=== PATIENT | female | born 1975 | race Caucasian/White ===

== ENCOUNTER 2017-09-04 10:26 | Emergency (ER) | payer OTHER ==
[~2017-09-04] VITALS: Ht 170.2 cm; Wt 104.3 kg
[~2017-09-04 10:26] MED LIST: BUSP10TA PO; FLUO10CA13 PO; FLUO40CA9 PO; GABA600T2 PO; MORP15TA80 PO; MORP30TA83 PO; NITR100C62 PO; ONDA8TAB12 PO; OXYC-328 PO; TRAZ150T49 PO
[2017-09-04] MEDS ORDERED: ASPIRIN ENTERIC COATED 325 MG TABLET.DR. PO ONE (11:00)
[2017-09-04] MEDS: NITROGLYCERIN SUBLINGUAL 0.4 MG BOTTLE OF 25. SL PRN ×2 (11:16→12:02)
[2017-09-04 11:17] LABS: BASO # 0.1 x10^3/uL (0.0-0.2); BASO % 1 % (0-3); EOS % 4 % (0-3); HEMATOCRIT 42.5 % (36.0-47.0); HEMOGLOBIN 14.2 g/dL (12.0-15.5); LYMPH # 2.9 x10^3/uL (1.0-4.8); LYMPH % 32 % (24-48); MEAN CORPUSCULAR HEMOGLOBIN 28 pg (25-35); MEAN CORPUSCULAR HGB CONC 34 g/dL (31-37); MEAN CORPUSCULAR VOLUME 84 fL (79-100); MONO % 7 % (0-9); NEUT % 56 % (31-73); PLATELET COUNT 346 x10^3/uL (140-400); RED BLOOD COUNT 5.05 x10^6/uL (3.50-5.40); RED CELL DISTRIBUTION WIDTH 13.2 % (11.5-14.5); WHITE BLOOD COUNT 9.1 x10^3/uL (4.0-11.0)
--- NOTE | 2017-09-04 11:25 | EKG ---
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
--- NOTE | 2017-09-04 11:27 | PHYS DOC ---
Past Medical History Past Medical History: Anxiety, Depression, Hypothyroid, Other Additional Past Medical Histor: back pain, DDD Past Surgical History: Cholecystectomy Additional Past Surgical Histo: LEEP procedure for HPV Alcohol Use: None Drug Use: None Adult General Chief Complaint Chief Complaint: CHEST PAIN HPI HPI Patient is a 41 year old female who presents with sharp left side Chest pain with radiation down her left arm, pain in the left arm as well as numbness. She states the symptoms were present when she woke this morning. The pain is radiating into her left neck as well as into her head. No nausea or vomiting, she did not take anything for these symptoms, they continue to persist. Patient states she had similar symptoms in the past when she "had fluid on the brain". She denies any known cardiac history, no history of PE or DVT, no risk factors for either. Patient reports she is taking her medications as prescribed. Her primary care physician is Dr. Greene, she has seen Dr. De Los Santos in the past for hydrocephalus. Review of Systems Review of Systems Constitutional: Denies fever or chills [] Eyes: Denies change in visual acuity, redness, or eye pain [] HENT: Denies nasal congestion or sore throat [] Respiratory: Denies cough or shortness of breath [] Cardiovascular: No additional information not addressed in HPI [] GI: Denies abdominal pain, nausea, vomiting, bloody stools or diarrhea [] : Denies dysuria or hematuria [] Musculoskeletal: Denies back pain or joint pain [] Integument: Denies rash or skin lesions [] Neurologic: per hpi Current Medications Current Medications Current Medications Medications (Trade) Dose Ordered Sig/[facility] Start Time Stop Time Status Last Admin Dose Admin Acetaminophen (Tylenol) 1,000 mg 1X ONCE 09/04/17 12:00 09/04/17 12:01 DC 09/04/17 12:02 1,000 MG Aspirin (Ecotrin) 325 mg 1X ONCE 09/04/17 11:00 09/04/17 11:04 DC 09/04/17 11:15 325 MG Nitroglycerin (Nitrostat) 0.4 mg PRN Q5MIN PRN 09/04/17 11:00 09/04/17 12:02 0.4 MG Oxycodone/ Acetaminophen (Percocet 5/325) 1 tab 1X ONCE 09/04/17 13:30 09/04/17 13:31 DC 09/04/17 13:22 1 TAB Allergies Allergies Allergies Coded Allergies Type Severity Reaction Last Updated Verified No Known Drug Allergies 01/24/14 No Physical Exam Physical Exam Constitutional: Well developed, well nourished, no acute distress, non-toxic appearance. obese HENT: Normocephalic, atraumatic, bilateral external ears normal, oropharynx moist, no oral exudates, nose normal. [] Eyes: PERRLA, EOMI, conjunctiva normal, no discharge. [] Neck: Normal range of motion, no tenderness, supple, no stridor. [] Cardiovascular:Heart rate regular with regular rhythm, no murmur [] Lungs & Thorax: Bilateral breath sounds clear to auscultation , no wheeze or crackles, ttp in anterior chest, reportedly reproduces pt's pain. Abdomen: Bowel sounds normal, soft, no tenderness, no masses, no pulsatile masses. [] Skin: Warm, dry, no erythema, no rash. [] Back: No tenderness, no CVA tenderness. [] Extremities: No tenderness, no cyanosis, no clubbing, ROM intact, no edema.negative homen's bilaterally Neurologic: Alert and oriented X 3, normal motor function, no focal deficits noted. 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 [] Current Patient Data Vital Signs Vital Signs Date Time Temp Pulse Resp B/P (MAP) Pulse Ox O2 Delivery O2 Flow Rate FiO2 09/04/17 13:45 80 17 123/78 (93) 98 Room Air 09/04/17 10:30 98.5 98.5 Lab Values Laboratory Tests Test 09/04/17 11:07 09/04/17 11:55 White Blood Count 9.1 x10^3/uL (4.0-11.0) Red Blood Count 5.05 x10^6/uL (3.50-5.40) Hemoglobin 14.2 g/dL (12.0-15.5) Hematocrit 42.5 % (36.0-47.0) Mean Corpuscular Volume 84 fL (79-100) Mean Corpuscular Hemoglobin 28 pg (25-35) Mean Corpuscular Hemoglobin Concent 34 g/dL (31-37) Red Cell Distribution Width 13.2 % (11.5-14.5) Platelet Count 346 x10^3/uL (140-400) Neutrophils (%) (Auto) 56 % (31-73) Lymphocytes (%) (Auto) 32 % (24-48) Monocytes (%) (Auto) 7 % (0-9) Eosinophils (%) (Auto) 4 % (0-3) H Basophils (%) (Auto) 1 % (0-3) Neutrophils # (Auto) 5.1 x10^3uL (1.8-7.7) Lymphocytes # (Auto) 2.9 x10^3/uL (1.0-4.8) Monocytes # (Auto) 0.6 x10^3/uL (0.0-1.1) Eosinophils # (Auto) 0.4 x10^3/uL (0.0-0.7) Basophils # (Auto) 0.1 x10^3/uL (0.0-0.2) Prothrombin Time 12.8 SEC (11.7-14.0) Prothrombin Time INR 1.0 (0.8-1.1) Sodium Level 139 mmol/L (136-145) Potassium Level 4.1 mmol/L (3.5-5.1) Chloride Level 101 mmol/L (98-107) Carbon Dioxide Level 27 mmol/L (21-32) Anion Gap 11 (6-14) Blood Urea Nitrogen 16 mg/dL (7-20) Creatinine 1.0 mg/dL (0.6-1.0) Estimated GFR (Cockcroft-Gault) 61.1 BUN/Creatinine Ratio 16 (6-20) Glucose Level 100 mg/dL (70-99) H Calcium Level 9.5 mg/dL (8.5-10.1) Magnesium Level 2.1 mg/dL (1.8-2.4) Total Bilirubin 0.2 mg/dL (0.2-1.0) Aspartate Amino Transferase (AST) 19 U/L (15-37) Alanine Aminotransferase (ALT) 20 U/L (14-59) Alkaline Phosphatase 82 U/L (46-116) Troponin I Quantitative < 0.017 ng/mL (0.000-0.055) Total Protein 8.2 g/dL (6.4-8.2) Albumin 3.6 g/dL (3.4-5.0) Albumin/Globulin Ratio 0.8 (1.0-1.7) L Thyroid Stimulating Hormone (TSH) 2.390 uIU/mL (0.358-3.74) Free Thyroxine 1.03 ng/dL (0.76-1.46) Urine Test Negative (NEG) Laboratory Tests 09/04/17 11:07 Laboratory Tests 09/04/17 11:07 EKG EKG 1011: 79 bpm, sinus, normal axis, normal intervals, no ST elevation or depression, nonischemic T waves, interpreted by me[] Radiology/Procedures Radiology/Procedures CXR: Impression: No evidence of an acute cardiopulmonary process. CT Head: History: Left arm numbness. Comparison: August 08, 2017. Axial images were obtained without contrast. There is moderate ventriculomegaly. Otherwise the fleming and white matter appears normal. There is no mass effect, extraaxial fluid collections or gross bleed. Impression: 1. Moderate hydrocephalus seen previously. 2. No change from prior study. Clinical correlation is suggested. Course & Med Decision Making Course & Med Decision Making Pertinent Labs and Imaging studies reviewed. (See chart for details) She was given aspirin and sublingual nitroglycerin for her symptoms. She required additional nitroglycerin to resolve her chest pain. She was also complaining of chronic back pain in her 1 Percocet tablet was given. no Acute findings on ED workup and I recommended admission for the chest pain she was experiencing. Patient stated this was not an option as she has 4 children and her is extrusion technician tonight and no one who can keep the children. She is agreeable to stay for a repeat troponin to ensure no increase. I did contact Dr. De Los Santos regarding the left arm numbness, he agrees with proceeding with the cardiac workup and asked that a plain film cervical spine x- ray be performed. This was ordered. Repeat troponin ordered for 1600. Care transferred to Dr. Marlow at 1500. If elevated, pt is agreeable to admission but if negative, pt will be dc'd home and f/u closely with cardiology. I spoke with cardiology for follow-up appointment, she has an appointment with Dr. Echevarria on 09/18 at 0845. Dragon Disclaimer Dragon Disclaimer This electronic medical record was generated, in whole or in part, using a voice recognition dictation system. Departure Departure Impression: Primary Impression: Chest pain Additional Impression: Arm numbness Referrals: ALEXIS GREENE MD (PCP) GAMALIEL DANIELS MD, DONALD J MD Call to schedule a close follow-up apointment with the hoistman. Return if you have worsening symptoms. Patient Instructions: Chest Pain (Nonspecific) Problem Qualifiers RUBIO SU MD Sep 04, 2017 11:27
[2017-09-04 11:33] LABS: CALCIUM 9.5 mg/dL (8.5-10.1); GFR 61.1; POTASSIUM 4.1 mmol/L (3.5-5.1)
[2017-09-04 11:37] LABS: PROTHROMBIN TIME PATIENT 12.8 SEC (11.7-14.0)
[2017-09-04 11:39] LABS: ALBUMIN 3.6 g/dL (3.4-5.0); ALBUMIN/GLOBULIN RATIO 0.8 (1.0-1.7); MAGNESIUM 2.1 mg/dL (1.8-2.4); TOTAL BILIRUBIN 0.2 mg/dL (0.2-1.0); TOTAL PROTEIN 8.2 g/dL (6.4-8.2)
[2017-09-04 11:46] LABS: FREE T4 1.03 ng/dL (0.76-1.46)
[2017-09-04] MEDS ORDERED: ACETAMINOPHEN 500 MG TABLET PO ONE (12:00)
--- NOTE | 2017-09-04 12:10 | RAD ---
History: Chest pain AP view the chest was obtained at 11:24 AM. Comparison: none The cardiomediastinal silhouette is normal. The pulmonary vasculature is normal. The lungs and pleural margins are clear. Impression: No evidence of an acute cardiopulmonary process.
[2017-09-04 12:53] LABS: NEG OBC UR NEG; POS OBC UR POS
--- NOTE | 2017-09-04 13:26 | RAD ---
History: Left arm numbness. Comparison: August 08, 2017. Axial images were obtained without contrast. There is moderate ventriculomegaly. Otherwise the fleming and white matter appears normal. There is no mass effect, extraaxial fluid collections or gross bleed. Impression: 1. Moderate hydrocephalus seen previously. 2. No change from prior study. Clinical correlation is suggested. PQRS Compliance Statement: One or more of the following individualized dose reduction techniques were utilized for this examination: 1. Automated exposure control 2. Adjustment of the mA and/or kV according to patient size 3. Use of iterative reconstruction technique
[2017-09-04] MEDS ORDERED: oxyCODONE/APAP 5/325 1 TAB TABLET PO ONE (13:30)
--- NOTE | 2017-09-04 15:01 | RAD ---
Cervical spine, 3 views, 09/04/2017: History: Left arm pain and numbness The vertebral heights are well-maintained. The intervertebral disc spaces are well preserved. No fracture or destructive bony lesion is seen. The prevertebral soft tissues are unremarkable. IMPRESSION: No acute cervical spine abnormality is detected.
[2017-09-04 15:45] VITALS: BP 135/81
== END 2017-09-04 16:29 | disposition home or self-care (01) ==
LOC: ER 10:26
DX: R07.89 Other chest pain (principal); R20.0 Anesthesia of skin; E03.9 Hypothyroidism, unspecified; F41.9 Anxiety disorder, unspecified; F32.9 Major depressive disorder, single episode, unspecified; G89.29 Other chronic pain
CPT/HCPCS: 36415; 70450; 71010; 72040; 80053; 81025; 83735; 84439; 84443; 84484; 85025; 85610; 93005; 99285-25

== ENCOUNTER 2018-07-02 08:39 | Emergency (ER) | payer OTHER ==
[~2018-07-02] VITALS: Ht 170.2 cm; Wt 113.4 kg
[2018-07-02] MEDS: KETOROLAC 30 MG/ML VIAL. IM ONE (09:37)
[2018-07-02 09:38] VITALS: BP 163/98
[2018-07-02 10:27] LABS: BILIRUBIN,URINE NEGATIVE (NEG); CLARITY,URINE CLEAR; COLOR,URINE YELLOW; NITRITE,URINE NEGATIVE (NEG); PROTEIN,URINE NEGATIVE (NEG-TRACE); UROBILINOGEN,URINE 0.2 mg/dL (0.2 mg/dL)
--- NOTE | 2018-07-02 10:38 | PHYS DOC ---
Past Medical History Past Medical History: Anxiety, Depression, Diabetes-Type II, Hypothyroid, Other Additional Past Medical Histor: back pain, DDD Past Surgical History: Cholecystectomy Additional Past Surgical Histo: LEEP procedure for HPV Alcohol Use: None Drug Use: None Adult General Chief Complaint Chief Complaint: BACK PAIN OR INJURY HPI HPI Patient is a 42 year old female who presents to the ER with complaints of R low back pain after falling in the bathtub this morning. Pt states she hit the back of her head on the tub and had an unwitnessed loss of consciousness. She denies any vomiting or vision changes, states she feels nauseated. Currently she rates her pain a 9 /10 on the pain scale. She has not taken anything for relief of the pain prior to arrival. She denies any saddle anesthesia, numbness , tingling, or loss of bowel/bladder control. Review of Systems Review of Systems Constitutional: Denies fever or chills [] Eyes: Denies change in visual acuity, redness, or eye pain [] Musculoskeletal: reports back pain Integument: Denies rash or skin lesions [] Neurologic: Denies headache, focal weakness or sensory changes [] All other systems were reviewed and found to be within normal limits, except as documented in this note. Current Medications Current Medications Current Medications Medications (Trade) Dose Ordered Sig/Brandi Start Time Stop Time Status Last Admin Dose Admin Insulin Human Regular (HumuLIN R VIAL) 5 unit 1X ONCE 07/02/18 11:30 07/02/18 11:31 DC 07/02/18 11:41 5 UNIT Ketorolac Tromethamine (Toradol 30mg Vial) 30 mg 1X ONCE 07/02/18 09:45 07/02/18 09:46 DC 07/02/18 09:37 30 MG Magnesium Sulfate/ Dextrose 100 ml @ 100 mls/hr 1X ONCE 07/02/18 11:30 07/02/18 12:29 DC 07/02/18 11:41 100 MLS/HR Orphenadrine Citrate (Norflex) 60 mg 1X ONCE 07/02/18 12:00 07/02/18 12:01 DC 07/02/18 12:04 60 MG Potassium Chloride (Klor-Con) 60 meq 1X ONCE 07/02/18 11:30 07/02/18 11:31 DC 07/02/18 11:39 60 MEQ Allergies Allergies Allergies Coded Allergies Type Severity Reaction Last Updated Verified venlafaxine Allergy Unknown 07/02/18 Yes Physical Exam Physical Exam Constitutional: Well developed, well nourished, no acute distress, non-toxic appearance, obese. [] HENT: Normocephalic, atraumatic, bilateral external ears normal, nose normal. [ ] Neck: Normal range of motion, no tenderness, supple, no stridor. [] Cardiovascular: Heart rate regular rhythm, no murmur [] Lungs & Thorax: Bilateral breath sounds clear to auscultation [] Skin: Warm, dry, no erythema, no rash. [] Back: R low back lateral muscular tenderness to palpation Extremities: No cyanosis, no clubbing, ROM intact, no edema. [] Neurologic: Alert and oriented X 3, normal motor function, normal sensory function, no focal deficits noted. [] Psychologic: Affect normal, judgement normal, mood normal. [] Current Patient Data Vital Signs Vital Signs Date Time Temp Pulse Resp B/P (MAP) Pulse Ox O2 Delivery O2 Flow Rate FiO2 07/02/18 09:38 99 16 163/98 (119) 100 Room Air 07/02/18 08:49 97.3 97.3 Lab Values Laboratory Tests Test 07/02/18 10:09 07/02/18 10:10 07/02/18 10:15 07/02/18 10:25 Glucose (Fingerstick) 450 mg/dL (70-99) H Urine Collection Type Unknown Urine Color Yellow Urine Clarity Clear Urine pH 5.0 Urine Specific [place] >=1.030 Urine Protein Negative mg/dL (NEG-TRACE) Urine Glucose (UA) >=1000 mg/dL (NEG) Urine Ketones (Stick) >=80 mg/dL (NEG) Urine Blood Large (NEG) Urine Nitrite Negative (NEG) Urine Bilirubin Negative (NEG) Urine Urobilinogen Dipstick 0.2 mg/dL (0.2 mg/dL) Urine Leukocyte Esterase Negative (NEG) Urine RBC 0 /HPF (0-2) Urine WBC 1-4 /HPF (0-4) Urine Squamous Epithelial Cells Few /LPF Urine Amorphous Sediment Present /HPF Urine Bacteria 0 /HPF (0-FEW) POC Urine HCG, Qualitative Hcg negative (Negative) White Blood Count 8.7 x10^3/uL (4.0-11.0) Red Blood Count 5.20 x10^6/uL (3.50-5.40) Hemoglobin 15.4 g/dL (12.0-15.5) Hematocrit 43.7 % (36.0-47.0) Mean Corpuscular Volume 84 fL (79-100) Mean Corpuscular Hemoglobin 30 pg (25-35) Mean Corpuscular Hemoglobin Concent 35 g/dL (31-37) Red Cell Distribution Width 14.5 % (11.5-14.5) Platelet Count 240 x10^3/uL (140-400) Neutrophils (%) (Auto) 70 % (31-73) Lymphocytes (%) (Auto) 22 % (24-48) L Monocytes (%) (Auto) 6 % (0-9) Eosinophils (%) (Auto) 2 % (0-3) Basophils (%) (Auto) 1 % (0-3) Neutrophils # (Auto) 6.1 x10^3uL (1.8-7.7) Lymphocytes # (Auto) 1.9 x10^3/uL (1.0-4.8) Monocytes # (Auto) 0.5 x10^3/uL (0.0-1.1) Eosinophils # (Auto) 0.2 x10^3/uL (0.0-0.7) Basophils # (Auto) 0.1 x10^3/uL (0.0-0.2) Sodium Level 130 mmol/L (136-145) L Potassium Level 3.3 mmol/L (3.5-5.1) L Chloride Level 95 mmol/L (98-107) L Carbon Dioxide Level 19 mmol/L (21-32) L Anion Gap 16 (6-14) H Blood Urea Nitrogen 8 mg/dL (7-20) Creatinine 1.0 mg/dL (0.6-1.0) Estimated GFR (Cockcroft-Gault) 60.8 BUN/Creatinine Ratio 8 (6-20) Glucose Level 467 mg/dL (70-99) H Calcium Level 9.0 mg/dL (8.5-10.1) Total Bilirubin 0.6 mg/dL (0.2-1.0) Aspartate Amino Transferase (AST) 24 U/L (15-37) Alanine Aminotransferase (ALT) 37 U/L (14-59) Alkaline Phosphatase 108 U/L (46-116) Total Protein 7.5 g/dL (6.4-8.2) Albumin 3.4 g/dL (3.4-5.0) Albumin/Globulin Ratio 0.8 (1.0-1.7) L Test 07/02/18 12:27 07/02/18 13:13 Glucose (Fingerstick) 412 mg/dL (70-99) H 375 mg/dL (70-99) H Laboratory Tests 07/02/18 10:25 Laboratory Tests 07/02/18 10:25 EKG EKG SR no STEMI read by Dr. Nina[] Radiology/Procedures Radiology/Procedures PROCEDURE: LUMBAR SPINE 2-3V 3 views lumbar spine 07/02/2018 INDICATION: Fell in bathtub. Back pain. COMPARISON STUDY: None FINDINGS: No evidence of acute fracture or alignment abnormality is identified. Vertebral body heights and disc spaces are grossly maintained. No evidence of spondylolysis or significant spondylolisthesis is seen. No acute soft tissue changes are identified. IMPRESSION: No radiographic evidence of acute osseous of normality. [] Course & Med Decision Making Course & Med Decision Making Pertinent Labs and Imaging studies reviewed. (See chart for details) 0958 Pt reports increased dizziness, requests that her blood sugar is checked DX low back pain after fall, hyperglycemia due to type 2 diabetes, dehydration Pt was given 1 L of NS, 1 gm of Mg, 60 mg of Kcl, and 5u regular insulin for hyperglycemia, blood sugar reduced to 375. Pt was advised to follow up with PCP about uncontrolled diabetes. She was given 30 mg of IM toradol and 60 mg of norflex for back pain, x-ray was negative for acute findings. Patient verbalized an understanding of home care, medications, follow-up, and return to ED instructions and was in agreement with the plan of care. [] Dragon Disclaimer Dragon Disclaimer This electronic medical record was generated, in whole or in part, using a voice recognition dictation system. Departure Departure Impression: Primary Impression: Low back pain Additional Impressions: Hyperglycemia due to type 2 diabetes mellitus Dehydration Disposition: HOME, SELF-CARE Condition: IMPROVED Referrals: ALEXIS GREENE MD (PCP) Patient Instructions: Hyperglycemia, [id number], Sciatica, [id number] Additional Instructions: Fill prescriptions and use as directed. Follow up with your PCP about further management of your diabetes. You may apply ice or heat to sore areas for comfort. Return to the ER if your symptoms worsen. Scripts Orphenadrine Citrate (ORPHENADRINE CITRATE) 100 Mg Tablet.er 1 TAB PO BID PRN for PAIN for 10 Days, #20 TAB 0 Refills Prov: SUGAR PERERA APRN 07/02/18 Naproxen (NAPROXEN) 500 Mg Tablet 500 MG PO BID for 10 Days, #20 TAB 0 Refills Prov: SUGAR PERERA APRN 07/02/18 Problem Qualifiers Primary Impression: Low back pain Chronicity: acute Back pain laterality: right Sciatica presence: with sciatica Sciatica laterality: sciatica of right side Qualified Codes: M54.41 - Lumbago with sciatica, right side Additional Impressions: Hyperglycemia due to type 2 diabetes mellitus Diabetes mellitus long term acute care registered nurse insulin use: without long term acute care registered nurse use Qualified Codes: E11.65 - Type 2 diabetes mellitus with hyperglycemia SUGAR PERERA APRN Jul 02, 2018 10:38
[2018-07-02 10:44] LABS: SQUAMOUS EPITHELIAL CELL,UR FEW /LPF
[2018-07-02 10:45] LABS: AMORPHOUS SEDIMENT,UR PRESENT /HPF; BACTERIA,URINE 0 /HPF (0-FEW); RBC,URINE 0 /HPF (0-2)
[2018-07-02 10:48] LABS: GFR 60.8; POTASSIUM 3.3 mmol/L (3.5-5.1)
--- NOTE | 2018-07-02 10:51 | RAD ---
3 views lumbar spine 07/02/2018 INDICATION: Fell in bathtub. Back pain. COMPARISON STUDY: None FINDINGS: No evidence of acute fracture or alignment abnormality is identified. Vertebral body heights and disc spaces are grossly maintained. No evidence of spondylolysis or significant spondylolisthesis is seen. No acute soft tissue changes are identified. IMPRESSION: No radiographic evidence of acute osseous of normality. Electronically signed by: Caesar Christian MD (07/02/2018 10:46 AM) [id number]
[2018-07-02 10:53] LABS: ALBUMIN 3.4 g/dL (3.4-5.0); ALBUMIN/GLOBULIN RATIO 0.8 (1.0-1.7); TOTAL BILIRUBIN 0.6 mg/dL (0.2-1.0); TOTAL PROTEIN 7.5 g/dL (6.4-8.2)
[2018-07-02 10:54] LABS: BASO # 0.1 x10^3/uL (0.0-0.2); BASO % 1 % (0-3); EOS # 0.2 x10^3/uL (0.0-0.7); EOS % 2 % (0-3); HEMATOCRIT 43.7 % (36.0-47.0); HEMOGLOBIN 15.4 g/dL (12.0-15.5); LYMPH # 1.9 x10^3/uL (1.0-4.8); LYMPH % 22 % (24-48); MEAN CORPUSCULAR HEMOGLOBIN 30 pg (25-35); MEAN CORPUSCULAR HGB CONC 35 g/dL (31-37); MEAN CORPUSCULAR VOLUME 84 fL (79-100); MONO # 0.5 x10^3/uL (0.0-1.1); MONO % 6 % (0-9); NEUT # 6.1 x10^3uL (1.8-7.7); NEUT % 70 % (31-73); PLATELET COUNT 240 x10^3/uL (140-400); RED CELL DISTRIBUTION WIDTH 14.5 % (11.5-14.5); WHITE BLOOD COUNT 8.7 x10^3/uL (4.0-11.0)
--- NOTE | 2018-07-02 11:10 | EKG ---
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
[2018-07-02] MEDS: POTASSIUM CHLORIDE 20 MEQ TABLET.ER. PO ONE (11:39)
[2018-07-02] MEDS: MAGNESIUM SULFATE 1GM 100 ML IV ONE (11:41)
[2018-07-02] MEDS: INSULIN REGULAR 100 UNIT/ML 3ML VIAL. IV ONE (11:41)
[2018-07-02] MEDS: ORPHENADRINE CITRATE 60 MG/2 ML VIAL. IV ONE (12:04)
[2018-07-02] MEDS ORDERED: NAPR-514 PO (13:25)
[2018-07-02] MEDS ORDERED: ORPH100T PO (13:25)
== END 2018-07-02 13:36 | disposition home or self-care (01) ==
LOC: ER 08:39
DX: M54.41 Lumbago with sciatica, right side (principal); G89.11 Acute pain due to trauma; E11.65 Type 2 diabetes mellitus with hyperglycemia; E86.0 Dehydration; E03.9 Hypothyroidism, unspecified; Z98.890 Other specified postprocedural states; Z90.49 Acquired absence of other specified parts of digestive tract; Z88.8 Allergy status to other drugs, medicaments and biological substances; W18.2XXA Fall in (into) shower or empty bathtub, initial encounter; Y93.89 Activity, other specified; Y92.89 Other specified places as the place of occurrence of the external cause; Y99.8 Other external cause status
CPT/HCPCS: 36415; 72100; 80053; 81001; 81025; 82962; 85025; 93005; 96365; 96372; 96375; 99285; J1815; J1885; J2360; J3475

== ENCOUNTER → 2018-08-04 | Outpatient (CLI) | payer OTHER ==
[~2018-08-04] MED LIST changes: +NAPR-514 PO; +ORPH100T PO
[2018-08-04 13:23] LABS: ALBUMIN 3.4 g/dL (3.4-5.0); ALBUMIN/GLOBULIN RATIO 0.8 (1.0-1.7); CALCIUM 9.2 mg/dL (8.5-10.1); CREATININE 0.9 mg/dL (0.6-1.0); GFR 68.7; TOTAL BILIRUBIN 0.6 mg/dL (0.2-1.0); TOTAL PROTEIN 7.9 g/dL (6.4-8.2)
== END | disposition home or self-care (01) ==
LOC: LAB 12:37
PROVIDERS: ATTEND Family Medicine
DX: E11.9 Type 2 diabetes mellitus without complications (principal); N39.0 Urinary tract infection, site not specified
CPT/HCPCS: 36415; 80053; 82043; 83036; 87086; 87186

== ENCOUNTER → 2018-08-13 | Outpatient (CLI) | payer OTHER ==
[2018-08-14 15:31] LABS: C-PEPTIDE 3.4 ng/mL (1.1-4.4); INSULIN LEVEL 12.6 uIU/mL (2.6-24.9)
== END | disposition home or self-care (01) ==
LOC: LAB 09:11
PROVIDERS: ATTEND Family Medicine
DX: E11.9 Type 2 diabetes mellitus without complications (principal)
CPT/HCPCS: 36415; 83525; 84681

== ENCOUNTER 2018-12-14 11:25 | Emergency (ER) | payer OTHER ==
[~2018-12-14] VITALS: Ht 170.2 cm; Wt 117.9 kg
[~2018-12-14 11:25] MED LIST changes: -GABA600T2 PO; +GABA600T7 PO; -OXYC-328 PO; +OXYC1TAB22 PO
[2018-12-14] MEDS ORDERED: ONDANSETRON ODT 4 MG TAB.RAPDIS. PO ONE (12:00)
[2018-12-14] MEDS ORDERED: MORPHINE SULFATE 4 MG/ML VIAL. IV ONE (12:00)
[2018-12-14 12:30] LABS: BASO # 0.1 x10^3/uL (0.0-0.2); BASO % 1 % (0-3); EOS # 0.5 x10^3/uL (0.0-0.7); EOS % 3 % (0-3); HEMATOCRIT 51.5 % (36.0-47.0); HEMOGLOBIN 17.7 g/dL (12.0-15.5); LYMPH # 3.9 x10^3/uL (1.0-4.8); LYMPH % 24 % (24-48); MEAN CORPUSCULAR HEMOGLOBIN 28 pg (25-35); MEAN CORPUSCULAR HGB CONC 34 g/dL (31-37); MEAN CORPUSCULAR VOLUME 82 fL (79-100); MONO # 0.8 x10^3/uL (0.0-1.1); MONO % 5 % (0-9); NEUT # 11.2 x10^3uL (1.8-7.7); NEUT % 68 % (31-73); PLATELET COUNT 395 x10^3/uL (140-400); RED BLOOD COUNT 6.31 x10^6/uL (3.50-5.40); RED CELL DISTRIBUTION WIDTH 13.6 % (11.5-14.5); WHITE BLOOD COUNT 16.6 x10^3/uL (4.0-11.0)
[2018-12-14 12:39] LABS: GFR 60.5; POTASSIUM 4.1 mmol/L (3.5-5.1)
[2018-12-14 12:45] LABS: ALBUMIN 4.5 g/dL (3.4-5.0); TOTAL BILIRUBIN 0.4 mg/dL (0.2-1.0); TOTAL PROTEIN 9.1 g/dL (6.4-8.2)
--- NOTE | 2018-12-14 12:46 | RAD ---
CHEST PA LATERAL CLINICAL INDICATION: left side rib pain COMPARISON: None FINDINGS: Heart is normal in size. Lungs are clear. No pneumothorax or pleural effusion. Visualized bony thorax is within normal limits. IMPRESSION: No acute pulmonary process. Electronically signed by: Humberto Montanez DO (12/14/2018 12:44 PM) [facility]
[2018-12-14] MEDS ORDERED: IV NORMAL SALINE 1000ML BAG 1,000 ML IV ONE (13:30)
--- NOTE | 2018-12-14 13:32 | PHYS DOC ---
Past Medical History Past Medical History: Anxiety, Depression, Diabetes-Type I, Diabetes-Type II, Hypothyroid, Other Additional Past Medical Histor: back pain, DDD Past Surgical History: Cholecystectomy Additional Past Surgical Histo: LEEP procedure for HPV Alcohol Use: None Drug Use: None Adult General Chief Complaint Chief Complaint: RIB PAIN [facility] HPI Patient is a 43 year old female who presents with left-sided rib pain. The patient is a type I diabetic. She has been seen at this facility numerous times for the same complaints. She states the pain is radiating into her left arm. She denies any injury. She states that she did have some nausea and has chronic back pain that is severe. She also has a widespread rash that she just finished a prednisone taper for but it did not clear up all of her symptoms. Review of Systems Review of Systems Constitutional: Denies fever or chills [] Eyes: Denies change in visual acuity, redness, or eye pain [] HENT: Denies nasal congestion or sore throat [] Respiratory: Denies cough or shortness of breath [] Cardiovascular: No additional information not addressed in HPI [] GI: Denies abdominal pain, nausea, vomiting, bloody stools or diarrhea [] : Denies dysuria or hematuria [] Musculoskeletal: Denies back pain or joint pain [] Integument: See history of present illness Neurologic: Denies headache, focal weakness or sensory changes [] Endocrine: Denies polyuria or polydipsia [] All other systems were reviewed and found to be within normal limits, except as documented in this note. Current Medications Current Medications Current Medications Medications (Trade) Dose Ordered Sig/[facility] Start Time Stop Time Status Last Admin Dose Admin Diphenhydramine HCl (Benadryl) 50 mg 1X ONCE 12/14/18 14:00 12/14/18 14:01 DC 12/14/18 14:24 50 MG Morphine Sulfate (Morphine Sulfate) 4 mg 1X ONCE 12/14/18 12:00 12/14/18 12:01 DC 12/14/18 12:22 4 MG Ondansetron HCl (Zofran Odt) 4 mg 1X ONCE 12/14/18 12:00 12/14/18 12:01 DC 12/14/18 12:22 4 MG Sodium Chloride 1,000 ml @ 1,000 mls/hr 1X ONCE 12/14/18 13:30 12/14/18 14:29 DC 12/14/18 13:21 1,000 MLS/HR Allergies Allergies Allergies Coded Allergies Type Severity Reaction Last Updated Verified venlafaxine Allergy Unknown 07/02/18 Yes Physical Exam Physical Exam Constitutional: Well developed, well nourished, no acute distress, non-toxic appearance. [] HENT: Normocephalic, atraumatic, bilateral external ears normal, oropharynx moist, no oral exudates, nose normal. [] Eyes: PERRLA, EOMI, conjunctiva normal, no discharge. [] Neck: Normal range of motion, no tenderness, supple, no stridor. [] Cardiovascular:Heart rate regular rhythm, no murmur [] Lungs & Thorax: Bilateral breath sounds clear to auscultation [] Abdomen: Bowel sounds normal, soft, no tenderness, no masses, no pulsatile masses. [] Skin: Widespread papular rash Back: No tenderness, no CVA tenderness. [] Extremities: No tenderness, no cyanosis, no clubbing, ROM intact, no edema. [] Neurologic: Alert and oriented X 3, normal motor function, normal sensory function, no focal deficits noted. [] Psychologic: Affect normal, judgement normal, mood normal. [] Current Patient Data Vital Signs Vital Signs Date Time Temp Pulse Resp B/P (MAP) Pulse Ox O2 Delivery O2 Flow Rate FiO2 12/14/18 12:22 20 98 Room Air 12/14/18 11:50 98.6 109 149/91 (110) 98.6 Lab Values Laboratory Tests Test 12/14/18 12:20 White Blood Count 16.6 x10^3/uL (4.0-11.0) H Red Blood Count 6.31 x10^6/uL (3.50-5.40) H Hemoglobin 17.7 g/dL (12.0-15.5) H Hematocrit 51.5 % (36.0-47.0) H Mean Corpuscular Volume 82 fL (79-100) Mean Corpuscular Hemoglobin 28 pg (25-35) Mean Corpuscular Hemoglobin Concent 34 g/dL (31-37) Red Cell Distribution Width 13.6 % (11.5-14.5) Platelet Count 395 x10^3/uL (140-400) Neutrophils (%) (Auto) 68 % (31-73) Lymphocytes (%) (Auto) 24 % (24-48) Monocytes (%) (Auto) 5 % (0-9) Eosinophils (%) (Auto) 3 % (0-3) Basophils (%) (Auto) 1 % (0-3) Neutrophils # (Auto) 11.2 x10^3uL (1.8-7.7) H Lymphocytes # (Auto) 3.9 x10^3/uL (1.0-4.8) Monocytes # (Auto) 0.8 x10^3/uL (0.0-1.1) Eosinophils # (Auto) 0.5 x10^3/uL (0.0-0.7) Basophils # (Auto) 0.1 x10^3/uL (0.0-0.2) Sodium Level 135 mmol/L (136-145) L Potassium Level 4.1 mmol/L (3.5-5.1) Chloride Level 96 mmol/L (98-107) L Carbon Dioxide Level 26 mmol/L (21-32) Anion Gap 13 (6-14) Blood Urea Nitrogen 17 mg/dL (7-20) Creatinine 1.0 mg/dL (0.6-1.0) Estimated GFR (Cockcroft-Gault) 60.5 BUN/Creatinine Ratio 17 (6-20) Glucose Level 370 mg/dL (70-99) H Calcium Level 10.0 mg/dL (8.5-10.1) Total Bilirubin 0.4 mg/dL (0.2-1.0) Aspartate Amino Transferase (AST) 12 U/L (15-37) L Alanine Aminotransferase (ALT) 31 U/L (14-59) Alkaline Phosphatase 118 U/L (46-116) H Troponin I Quantitative < 0.017 ng/mL (0.000-0.055) Total Protein 9.1 g/dL (6.4-8.2) H Albumin 4.5 g/dL (3.4-5.0) Albumin/Globulin Ratio 1.0 (1.0-1.7) Laboratory Tests 12/14/18 12:20 Laboratory Tests 12/14/18 12:20 EKG EKG [] Radiology/Procedures Radiology/Procedures []PATIENT: JESSI CRESPO AACCOUNT: [id number]#: [id number] : 1975 LOCATION: ER AGE: 43 SEX: F EXAM STATUS: REG ER ORD. PHYSICIAN: TIFFANIE PAGE APRN REASON: left sided rib pain PROCEDURE: CHEST PA & LATERAL CHEST PA LATERAL CLINICAL INDICATION: left side rib pain COMPARISON: None FINDINGS: Heart is normal in size. Lungs are clear. No pneumothorax or pleural effusion. Visualized bony thorax is within normal limits. IMPRESSION: No acute pulmonary process. Electronically signed by: Humberto Montanez DO (12/14/2018 12:44 PM) [facility] DICTATED and SIGNED BY: HUMBERTO MONTANEZ DO DATE: 12/14/18 1244 Course & Med Decision Making Course & Med Decision Making Pertinent Labs and Imaging studies reviewed. (See chart for details) []Labs and imaging were negative for an acute cardiac process. The patient was given pain medicine in the emergency department. She is being discharged for follow-up with her primary care provider. Dragon Disclaimer Dragon Disclaimer This electronic medical record was generated, in whole or in part, using a voice recognition dictation system. Departure Departure Impression: Primary Impression: Back pain Additional Impressions: Rib pain Rash Disposition: 01 HOME, SELF-CARE Condition: STABLE Referrals: ALEXIS GREENE MD (PCP) Patient Instructions: Rash, Rib Contusion Additional Instructions: Continue your at home medications as directed. Follow-up with your primary care provider for possible referral to dermatology if not improving. Problem Qualifiers TIFFANIE PAGE APRN Dec 14, 2018 13:31
[2018-12-14 14:00] VITALS: BP 144/92
[2018-12-14] MEDS ORDERED: diphenhydrAMINE 50 MG/ML VIAL IVP ONE (14:00)
--- NOTE | 2018-12-14 16:01 | EKG ---
[facility] [address] [place] [address] Test Date: 2018-12-14 Test Time: 11:40:19 Pat Name: JESSI CRESPO Department: Room: Gender: F [employer]ist [employer]: : 1975 Requested By: TIFFANIE PAGE Order Number: [id number] Reading MD: Adan Walden MD Measurements Intervals [place] Rate: 108 P: 34 LA: 158 QRS: -18 QRSD: 84 T: 52 QT: 338 QTc: 457 Interpretive Statements SINUS TACHYCARDIA CANNOT RULE OUT INFERIOR INFARCT Electronically Signed On 12-18-2018 13:11:12 CDT by Adan Walden MD
== END 2018-12-14 14:34 | disposition home or self-care (01) ==
LOC: ER 11:25
DX: R07.89 Other chest pain (principal); G89.29 Other chronic pain; M54.89 Other dorsalgia; R21 Rash and other nonspecific skin eruption; E11.9 Type 2 diabetes mellitus without complications; F41.9 Anxiety disorder, unspecified; F32.9 Major depressive disorder, single episode, unspecified; E03.9 Hypothyroidism, unspecified; Z88.8 Allergy status to other drugs, medicaments and biological substances
CPT/HCPCS: 36415; 71046; 80053; 84484; 85025; 93005; 96374; 96375; 99284; J1200; J2270; J7030; Q0162

== ENCOUNTER 2019-05-24 14:22 | Emergency (ER) | payer OTHER ==
[~2019-05-24] VITALS: Ht 167.6 cm; Wt 117.9 kg
[2019-05-24 15:14] LABS: BILIRUBIN,URINE NEGATIVE (NEG); CLARITY,URINE CLEAR; COLOR,URINE YELLOW; NITRITE,URINE NEGATIVE (NEG); PROTEIN,URINE NEGATIVE (NEG-TRACE); UROBILINOGEN,URINE 0.2 mg/dL (0.2 mg/dL)
[2019-05-24 15:21] LABS: BARBITURATES POS (NEG); BENZODIAZEPINES NEG (NEG); CANNABINOIDS NEG (NEG); COCAINE NEG (NEG); METHADONE NEG (NEG); OPIATES POS (NEG); PHENCYCLIDINE NEG (NEG)
[2019-05-24 15:23] LABS: SQUAMOUS EPITHELIAL CELL,UR MOD /LPF
[2019-05-24 15:24] LABS: BACTERIA,URINE MODERATE /HPF (0-FEW); RBC,URINE 0 /HPF (0-2)
[2019-05-24 15:25] LABS: AMPHETAMINE/METHAMPHETAMINE NEG (NEG)
[2019-05-24 15:26] LABS: U PREG PATIENT NEGATIVE (NEG)
[2019-05-24 15:37] LABS: BASO # 0.1 x10^3/uL (0.0-0.2); BASO % 1 % (0-3); EOS # 0.5 x10^3/uL (0.0-0.7); EOS % 5 % (0-3); HEMOGLOBIN 13.2 g/dL (12.0-15.5); LYMPH # 2.5 x10^3/uL (1.0-4.8); LYMPH % 26 % (24-48); MEAN CORPUSCULAR HEMOGLOBIN 28 pg (25-35); MEAN CORPUSCULAR HGB CONC 35 g/dL (31-37); MEAN CORPUSCULAR VOLUME 80 fL (79-100); MONO # 0.6 x10^3/uL (0.0-1.1); MONO % 7 % (0-9); NEUT # 5.7 x10^3/uL (1.8-7.7); NEUT % 61 % (31-73); PLATELET COUNT 303 x10^3/uL (140-400); RED BLOOD COUNT 4.75 x10^6/uL (3.50-5.40); RED CELL DISTRIBUTION WIDTH 15.2 % (11.5-14.5); WHITE BLOOD COUNT 9.4 x10^3/uL (4.0-11.0)
[2019-05-24] MEDS: ONDANSETRON PF 4 MG/2 ML VIAL. IV ONE (15:44)
[2019-05-24] MEDS: KETOROLAC 30 MG/ML VIAL. IV ONE (15:46)
--- NOTE | 2019-05-24 15:47 | RAD ---
RS Compliance Statement: One or more of the following individualized dose reduction techniques were utilized for this examination: 1. Automated exposure control 2. Adjustment of the mA and/or kV according to patient size 3. Use of iterative reconstruction technique CT head without contrast 05/24/2019 3:27 PM INDICATION: Headache with loss of vision and left arm numbness COMPARISON: CT head 09/04/2017 TECHNIQUE: Multiple axial CT images of the head were obtained from skull base through the vertex without intravenous contrast. FINDINGS: Head: Moderate ventriculomegaly appears stable with distance of the lateral margin of the frontal horns of lateral ventricles appearing similar in measurement (4.4 cm). There is no hydrocephalus. Macdonald-white matter differentiation is normal. There is no acute intracranial hemorrhage. There is no mass, mass effect or midline shift. Posterior fossa is normal in appearance. Visualized portions of the orbits are normal. Paranasal sinuses are well aerated. Mastoid air cells are well aerated. Scalp and calvaria are normal. IMPRESSION: No acute intracranial hemorrhage. Stable moderate ventriculomegaly without definite hydrocephalus. Electronically signed by: Sayra Crandall MD (05/24/2019 3:44 PM) [id number]
[2019-05-24] MEDS: diphenhydrAMINE 50 MG/ML VIAL IVP ONE (15:48)
[2019-05-24 15:53] LABS: CALCIUM 8.9 mg/dL (8.5-10.1); GFR 60.5; POTASSIUM 4.4 mmol/L (3.5-5.1)
[2019-05-24 16:00] LABS: ALBUMIN 3.1 g/dL (3.4-5.0); ALBUMIN/GLOBULIN RATIO 0.8 (1.0-1.7); MAGNESIUM 1.7 mg/dL (1.8-2.4); TOTAL BILIRUBIN 0.2 mg/dL (0.2-1.0); TOTAL PROTEIN 6.9 g/dL (6.4-8.2)
--- NOTE | 2019-05-24 16:51 | PHYS DOC ---
Past Medical History Past Medical History: Anxiety, Depression, Diabetes-Type I, Diabetes-Type II, Hypothyroid, Other Additional Past Medical Histor: back pain, DDD Past Surgical History: Cholecystectomy Additional Past Surgical Histo: LEEP procedure for HPV Alcohol Use: Occasionally Drug Use: Marijuana Adult General Chief Complaint Chief Complaint: VISION PROBLEM HPI HPI Patient is a 43 year old female patient with history of migraine headache with complaining of headache and loss of vision in left eye and left upper extremity numbness. Patient states she has had constant left sided headache for the last 3 weeks as a sharp and throbbing and pressure pain associated with nausea without focal neuro deficit that did not get better with Fioricet given by her neurolog ist. Patient rated her pain 10/10 and complaining of nausea without fever and chills and neck pain. Patient states she had sudden onset of loss of vision in left eye about 2 hours prior to arrival and left upper extremity numbness and states she had the same episode now dislocation with her migraine headache. Patient denies chest pain, shortness of breath, focal weakness, urinary and bowel incontinence. Review of Systems Review of Systems Constitutional: Denies fever or chills [] Eyes: Denies change in visual acuity, redness, or eye pain, reports loss of vision. HENT: Denies nasal congestion or sore throat [] Respiratory: Denies cough or shortness of breath [] Cardiovascular: No additional information not addressed in HPI [] GI: Denies abdominal pain, nausea, vomiting, bloody stools or diarrhea [] : Denies dysuria or hematuria [] Musculoskeletal: Denies back pain or joint pain [] Integument: Denies rash or skin lesions [] Neurologic: Denies focal weakness, reports headache and sensory changes [] Endocrine: Denies polyuria or polydipsia [] All other systems were reviewed and found to be within normal limits, except as documented in this note. Current Medications Current Medications Current Medications Medications (Trade) Dose Ordered Sig/[facility] Start Time Stop Time Status Last Admin Dose Admin Diphenhydramine HCl (Benadryl) 50 mg 1X ONCE 05/24/19 15:00 05/24/19 15:02 DC 05/24/19 15:48 50 MG Fentanyl Citrate (Fentanyl 2ml Vial) 50 mcg 1X ONCE 05/24/19 17:00 05/24/19 17:01 DC 05/24/19 17:32 50 MCG Ketorolac Tromethamine (Toradol 30mg Vial) 30 mg 1X ONCE 05/24/19 15:00 05/24/19 15:02 DC 05/24/19 15:48 30 MG Metoclopramide HCl (Reglan Vial) 10 mg 1X ONCE 05/24/19 17:00 05/24/19 17:01 DC 05/24/19 17:32 10 MG Ondansetron HCl (Zofran) 4 mg 1X ONCE 05/24/19 15:00 05/24/19 15:02 DC 05/24/19 15:48 4 MG Allergies Allergies Allergies Coded Allergies Type Severity Reaction Last Updated Verified venlafaxine Allergy Unknown 07/02/18 Yes Physical Exam Physical Exam Constitutional: Well developed, well nourished, mild distress, non-toxic appearance, morbidly obese. [] HENT: Normocephalic, atraumatic. Eyes: PERRLA, EOMI, conjunctiva normal, no discharge, subjective loss of vision in left eye. Patient was able to blink when an objects getting close to the left eye.] Neck: Normal range of motion, no tenderness, supple, no stridor. [] Cardiovascular:Heart rate regular rhythm, no murmur [] Lungs & Thorax: Bilateral breath sounds clear to auscultation [] Abdomen: Bowel sounds normal, soft, no tenderness, no masses, no pulsatile masses. [] Skin: Warm, dry, no erythema, no rash. [] Back: No tenderness, no CVA tenderness. [] Extremities: No tenderness, no cyanosis, no clubbing, ROM intact, no edema. [] Neurologic: Alert and oriented X 3, no focal deficits, subjective sensation loss of left upper extremity up to elbow. Psychologic: Affect anxious, judgement normal, mood normal. [] Current Patient Data Vital Signs Vital Signs Date Time Temp Pulse Resp B/P (MAP) Pulse Ox O2 Delivery O2 Flow Rate FiO2 05/24/19 18:00 84 14 113/59 (77) 96 Room Air 05/24/19 15:00 97.9 97.9 Lab Values Laboratory Tests Test 05/24/19 14:23 05/24/19 15:00 White Blood Count 9.4 x10^3/uL (4.0-11.0) Red Blood Count 4.75 x10^6/uL (3.50-5.40) Hemoglobin 13.2 g/dL (12.0-15.5) Hematocrit 38.0 % (36.0-47.0) Mean Corpuscular Volume 80 fL (79-100) Mean Corpuscular Hemoglobin 28 pg (25-35) Mean Corpuscular Hemoglobin Concent 35 g/dL (31-37) Red Cell Distribution Width 15.2 % (11.5-14.5) H Platelet Count 303 x10^3/uL (140-400) Neutrophils (%) (Auto) 61 % (31-73) Lymphocytes (%) (Auto) 26 % (24-48) Monocytes (%) (Auto) 7 % (0-9) Eosinophils (%) (Auto) 5 % (0-3) H Basophils (%) (Auto) 1 % (0-3) Neutrophils # (Auto) 5.7 x10^3/uL (1.8-7.7) Lymphocytes # (Auto) 2.5 x10^3/uL (1.0-4.8) Monocytes # (Auto) 0.6 x10^3/uL (0.0-1.1) Eosinophils # (Auto) 0.5 x10^3/uL (0.0-0.7) Basophils # (Auto) 0.1 x10^3/uL (0.0-0.2) Sodium Level 139 mmol/L (136-145) Potassium Level 4.4 mmol/L (3.5-5.1) Chloride Level 102 mmol/L (98-107) Carbon Dioxide Level 28 mmol/L (21-32) Anion Gap 9 (6-14) Blood Urea Nitrogen 15 mg/dL (7-20) Creatinine 1.0 mg/dL (0.6-1.0) Estimated GFR (Cockcroft-Gault) 60.5 BUN/Creatinine Ratio 15 (6-20) Glucose Level 167 mg/dL (70-99) H Calcium Level 8.9 mg/dL (8.5-10.1) Magnesium Level 1.7 mg/dL (1.8-2.4) L Total Bilirubin 0.2 mg/dL (0.2-1.0) Aspartate Amino Transferase (AST) 15 U/L (15-37) Alanine Aminotransferase (ALT) 24 U/L (14-59) Alkaline Phosphatase 87 U/L (46-116) Total Protein 6.9 g/dL (6.4-8.2) Albumin 3.1 g/dL (3.4-5.0) L Albumin/Globulin Ratio 0.8 (1.0-1.7) L Urine Collection Type Unknown Urine Color Yellow Urine Clarity Clear Urine pH 6.0 Urine Specific [place] 1.025 Urine Protein Negative mg/dL (NEG-TRACE) Urine Glucose (UA) Negative mg/dL (NEG) Urine Ketones (Stick) Negative mg/dL (NEG) Urine Blood Negative (NEG) Urine Nitrite Negative (NEG) Urine Bilirubin Negative (NEG) Urine Urobilinogen Dipstick 0.2 mg/dL (0.2 mg/dL) Urine Leukocyte Esterase Small (NEG) Urine RBC 0 /HPF (0-2) Urine WBC 5-10 /HPF (0-4) Urine Squamous Epithelial Cells Mod /LPF Urine Bacteria Moderate /HPF (0-FEW) Urine Mucus Mod /LPF Urine Test Negative (NEG) Urine Opiates Screen Pos (NEG) Urine Methadone Screen Neg (NEG) Urine Barbiturates Pos (NEG) Urine Phencyclidine Screen Neg (NEG) Urine Amphetamine/Methamphetamine Neg (NEG) Urine Benzodiazepines Screen Neg (NEG) Urine Cocaine Screen Neg (NEG) Urine Cannabinoids Screen Neg (NEG) Urine Ethyl Alcohol Neg (NEG) Laboratory Tests 05/24/19 14:23 Laboratory Tests 05/24/19 14:23 EKG EKG [] Radiology/Procedures Radiology/Procedures [][facility] [address] [facility] [place] [address] IMAGING REPORT Signed PATIENT: JESSI CRESPO AACCOUNT: [id number] : 1975 LOCATION: ER AGE: 43 SEX: F EXAM STATUS: REG ER ORD. PHYSICIAN: JASMINE DOAN MD REASON: headache, loss of vision and left arm numbness PROCEDURE: CT HEAD WO CONTRAST PQRS Compliance Statement: One or more of the following individualized dose reduction techniques were utilized for this examination: 1. Automated exposure control 2. Adjustment of the mA and/or kV according to patient size 3. Use of iterative reconstruction technique CT head without contrast 05/24/2019 3:27 PM INDICATION: Headache with loss of vision and left arm numbness COMPARISON: CT head 09/04/2017 TECHNIQUE: Multiple axial CT images of the head were obtained from skull base through the vertex without intravenous contrast. FINDINGS: Head: Moderate ventriculomegaly appears stable with distance of the lateral margin of the frontal horns of lateral ventricles appearing similar in measurement (4.4 cm). There is no hydrocephalus. Macdonald-white matter differentiation is normal. There is no acute intracranial hemorrhage. There is no mass, mass effect or midline shift. Posterior fossa is normal in appearance. Visualized portions of the orbits are normal. Paranasal sinuses are well aerated. Mastoid air cells are well aerated. Scalp and calvaria are normal. IMPRESSION: No acute intracranial hemorrhage. Stable moderate ventriculomegaly without definite hydrocephalus. Electronically signed by: Luis Bradley MD (05/24/2019 3:44 PM) [facility] DICTATED and SIGNED BY: LUIS BRADLEY MD DATE: 05/24/19 1544 Course & Med Decision Making Course & Med Decision Making Pertinent Labs and Imaging studies reviewed. (See chart for details) Evaluation of patient in ER showed 43-year-old female patient with history of migraine headaches presented with headache for 3 weeks and sudden onset of loss of left eye vision and left upper extremity numbness. Patient did not loss of vision getting physical exam and complaining of subjective left upper extremity numbness. Patient treated with IV fluid, Toradol, Benadryl and Zofran and states her numbness and loss of vision but still was complaining of headache and nausea that improved with fentanyl and Reglan. Patient was advised to follow-up with her physician and plan to discharge her home with diagnosis of migraine headaches with aura. UA showed 5-10 WBC with moderate squamous cells she did not get treatment with UTI because of contaminated urine. Dragon Disclaimer Dragon Disclaimer This electronic medical record was generated, in whole or in part, using a voice recognition dictation system. Departure Departure Impression: Primary Impression: Migraine headache with aura Additional Impression: Morbidly obese Disposition: 01 HOME, SELF-CARE Condition: IMPROVED Referrals: ALEXIS GREENE MD (PCP) Patient Instructions: Migraine Headache Additional Instructions: Drink plenty of liquids Follow-up with your primary care physician in 3-5 days Return to ER if not getting better Scripts Ondansetron Hcl (ZOFRAN) 4 Mg Tablet 1 TAB PO PRN Q6-8HRS for nausea, #12 TAB Prov: JASMINE DOAN MD 05/24/19 Hydrocodone/Apap 5-325 (NORCO 5-325 TABLET) 1 Each Tablet 1 TAB PO PRN Q6HRS PRN for PAIN, #10 TAB 0 Refills Prov: JASMIEN DOAN MD 05/24/19 NIHSS Stroke Scale NIH Stroke Scale: NIH Stroke Scale Response (Comments) Value Level of Consciousness: 0 Alert/Responsive 0 LOC Questions: 0 Answers both correctly 0 LOC Commands: 0 Performs both tasks 0 Best Gaze: 0 Normal 0 Visual: 0 No visual loss 0 Facial Palsy: 0 Normal, symmetrical 0 Motor - Left Arm 0 No drift 0 Motor - Right Arm 0 No drift 0 Motor - Left Leg 0 No drift 0 Motor: Right Leg 0 No drift 0 Limb Ataxia: 0 Absent 0 Sensory: 1 Mid to moderate loss (subjective) 1 Best Language: 0 Normal 0 Dysathria: 0 Normal 0 Extinction and Inattention: 0 Normal 0 Total 1 Problem Qualifiers Primary Impression: Migraine headache with aura Status migrainosus presence: without status migrainosus Intractability: not intractable Qualified Codes: G43.109 - Migraine with aura, not intractable, without status migrainosus JASMINE DOAN MD May 24, 2019 16:51
[2019-05-24] MEDS: METOCLOPRAMIDE HCL 10 MG/2 ML VIAL. IV ONE (17:26)
[2019-05-24] MEDS: fentaNYL PF VIAL 100 MCG/2 ML VIAL IV ONE (17:32)
[2019-05-24] MEDS ORDERED: ONDA4TAB7 PO (17:49)
[2019-05-24] MEDS ORDERED: HYDR-3164 PO (17:49)
[2019-05-24 18:00] VITALS: BP 113/59
== END 2019-05-24 18:10 | disposition home or self-care (01) ==
LOC: ER 14:22
DX: G43.109 Migraine with aura, not intractable, without status migrainosus (principal); E66.01 Morbid (severe) obesity due to excess calories; Z68.41 Body mass index [BMI] 40.0-44.9, adult; E11.9 Type 2 diabetes mellitus without complications; E03.9 Hypothyroidism, unspecified; Z88.8 Allergy status to other drugs, medicaments and biological substances
CPT/HCPCS: 36415; 70450; 80053; 80307; 81001; 81025; 83735; 85025; 87086; 96374; 96375; 99285; J1200; J1885; J2405; J2765; J3010

== ENCOUNTER 2019-10-16 11:36 | Emergency (ER) | payer OTHER ==
[~2019-10-16] VITALS: Ht 170.2 cm; Wt 114.8 kg
[~2019-10-16 11:36] MED LIST changes: +HYDR-3164 PO; +ONDA4TAB7 PO
[2019-10-16 12:10] VITALS: BP 169/81
[2019-10-16] MEDS ORDERED: oxyCODONE/APAP 5/325 1 TAB TABLET PO ONE (13:00)
[2019-10-16] MEDS ORDERED: predniSONE 10 MG TABLET PO ONE (13:00)
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
--- NOTE | 2019-10-16 13:40 | RAD ---
CT LUMBAR SPINE WO CONTRAST Date: 10/16/2019 1:18 PM Indication: Back pain. Degenerative disc disease. Comparison: MRI 05/25/2015. Technique: Helical CT images of the lumbar spine were obtained without contrast. Coronal and sagittal reformatted images were also performed. One or more of the following dose reduction techniques were utilized: Automated exposure control (AEC), Adjustment of mA and/or kV according to patient size, Use of iterative reconstruction technique such as ASiR, CT scan done according to ALARA and image gently/image wisely. Findings: The lumbar spine is normally aligned. No acute fracture. Vertebral body heights are maintained without compression deformity. Focally advanced degenerative disc disease at L5-S1. Mild degenerative changes of the right sacroiliac joint. No aggressive lytic or blastic osseous lesion. No high grade spinal canal stenosis or neuroforaminal narrowing. No soft tissue abnormality within the visualized abdomen or pelvis. The visualized abdominal aorta is normal caliber. IMPRESSION: No acute osseous abnormality of the lumbar spine. Focally advanced degenerative disc disease at L5-S1, similar to the prior exams. Electronically signed by: Blake Meyers MD (10/16/2019 1:38 PM) [facility]
[2019-10-16] MEDS ORDERED: OXYC1TAB15 PO (14:06)
[2019-10-16] MEDS ORDERED: ORPH100T PO (14:06)
[2019-10-16] MEDS ORDERED: METH4TAB2 PO (14:06)
[2019-10-16] MEDS ORDERED: ORPHENADRINE CITRATE 60 MG/2 ML VIAL. IM ONE (14:15)
== END 2019-10-16 14:45 | disposition home or self-care (01) ==
LOC: ER 11:36
DX: M54.42 Lumbago with sciatica, left side (principal); M54.41 Lumbago with sciatica, right side; M25.552 Pain in left hip; G89.29 Other chronic pain; M25.551 Pain in right hip; M25.561 Pain in right knee; M25.562 Pain in left knee; F41.9 Anxiety disorder, unspecified; F32.9 Major depressive disorder, single episode, unspecified; E10.9 Type 1 diabetes mellitus without complications; E03.9 Hypothyroidism, unspecified; M51.35 Other intervertebral disc degeneration, thoracolumbar region; Z90.49 Acquired absence of other specified parts of digestive tract; Z98.890 Other specified postprocedural states; Z88.8 Allergy status to other drugs, medicaments and biological substances
CPT/HCPCS: 72131; 96372; 99284; J2360; J7512

== ENCOUNTER 2020-05-26 09:14 | Inpatient (IN) | payer OTHER ==
[~2020-05-26] VITALS: Ht 167.6 cm; Wt 113.0 kg
[~2020-05-26 09:14] MED LIST changes: +METH4TAB2 PO; +OXYC1TAB15 PO
[2020-05-26] MEDS ORDERED: IV NORMAL SALINE 1000ML BAG 1,000 ML IV ONE (09:30)
--- NOTE | 2020-05-26 09:38 | PHYS DOC ---
Past Medical History Past Medical History: Anxiety, Depression, Diabetes-Type II, Hypothyroid, Other Additional Past Medical Histor: back pain, DDD, obesity Past Surgical History: Cholecystectomy, Other Additional Past Surgical Histo: LEEP procedure for HPV Smoking Status: Never Smoker Alcohol Use: Occasionally Drug Use: None General Adult EDM: Chief Complaint: CHEST PAIN HPI: HPI: 44-year-old female presents emergency department today with chest pain and speech disturbance with dizziness. She woke up with a pressure in her chest that did not get better with her anxiety medications. She also had dizziness when she was walking and had trouble with her speech. Her last known well was last night around 1 AM. She denies a history of stroke. She has a history of diabetes. She denies any diplopia or numbness or weakness of her arms or legs. Her dizziness has resolved now and she reports normal speech on arrival to the emergency department. Her chest pain is much better than it was earlier. Review of systems negative for headache neck pain nuchal rigidity abdominal pain vomiting fevers or rashes. All other review of systems negative. ED course: 44-year-old female presenting with chest pain speech disturbance and dizziness last known well was 1 AM. Patient is outside of TPA window. EKG obtained and reviewed by myself shows sinus tachycardia. ST segments congruent. Not suggestive of acute ischemia. Head CT and CT angiogram ordered along with blood work. CBC unremarkable. Chemistry panel creatinine 1.1. Troponin within normal limits. D-dimer within normal limits. hCG negative. CT head and neck angiogram and CT head noncontrast ordered. CT head and neck are unremarkable. Will admit the patient for neurology and cardiology consultation. Patient's chest pain improved while in the emergency department. Heart Score: HEART Score for Chest Pain: HEART Score for Chest Pain Response (Comments) Value History Moderately Suspicious 1 ECG Nonspecific Repolarizatio 1 Age < 45 0 Risk Factors >3 Risk Factors or Hx CAD 2 Troponin < Normal Limit 0 Total 4 Risk Factors: Risk Factors: DM, Current or recent (<one month) smoker, HTN, HLP, family history of CAD, obesity. Risk Scores: Score 0 - 3: 2.5% MACE over next 6 weeks - Discharge Home Score 4 - 6: 20.3% MACE over next 6 weeks - Admit for Clinical Observation Score 7 - 10: 72.7% MACE over next 6 weeks - Early Invasive Strategies Current Medications: Current Medications Medications (Trade) Dose Ordered Sig/Brandi Start Time Stop Time Status Last Admin Dose Admin Sodium Chloride 1,000 ml @ 1,000 mls/hr 1X ONCE 05/26/20 09:30 05/26/20 10:29 Allergies: Allergies: Allergies Coded Allergies Type Severity Reaction Last Updated Verified venlafaxine Allergy Unknown 07/02/18 Yes Physical Exam: PE: Constitutional: Well developed, well nourished, no acute distress, non-toxic appearance. [] HENT: Normocephalic, atraumatic, bilateral external ears normal, oropharynx moist, no oral exudates, nose normal. [] Eyes: PERRLA, EOMI, conjunctiva normal, no discharge. [] Neck: Normal range of motion, no tenderness, supple, no stridor. [] Cardiovascular:Heart rate regular rhythm, no murmur [] Lungs & Thorax: Bilateral breath sounds clear to auscultation [] Abdomen: Bowel sounds normal, soft, no tenderness, no masses, no pulsatile masses. [] Skin: Warm, dry, no erythema, no rash. [] Back: No tenderness, no CVA tenderness. [] Extremities: No tenderness, no cyanosis, no clubbing, ROM intact, no edema. [] Neurologic: NIH stroke scale of 0 Mental status: Awake oriented and alert x3, speech normal Cranial nerves: Extraocular movements intact, eyebrows everardo bilaterally, smile symmetric, uvula elevation nl, shoulder shrug intact bilaterally, tongue protrusion normal DTRs: 2+ Sensation: equal and normal in all extremities Strength: 5/5 in upper and lower extremities bilaterally Psychologic: Affect normal, judgement normal, mood normal. [] Current Patient Data: Vital Signs: Vital Signs Date Time Temp Pulse Resp B/P (MAP) Pulse Ox O2 Delivery O2 Flow Rate FiO2 05/26/20 09:15 98.6 122 20 144/80 (101) 98 Room Air 98.6 EKG: EKG: [] Radiology/Procedures: Radiology/Procedures: [] Course & Med Decision Making: Course & Med Decision Making Pertinent Labs and Imaging studies reviewed. (See chart for details) [] Dragon Disclaimer: Dragon Disclaimer: This electronic medical record was generated, in whole or in part, using a voice recognition dictation system. Departure Departure Impression: Primary Impression: Chest pain Additional Impressions: Dizziness Speech disturbance TIA (transient ischemic attack) Disposition: ADMITTED INPATIENT Condition: STABLE Referrals: ALEXIS GREENE MD (PCP) Justicifation of Admission Dx: Justifications for Admission: Justification of Admission Dx: Yes Comments: Strokelike symptoms SE BROWN MD May 26, 2020 09:38
[2020-05-26 09:45] LABS: BASO # 0.1 x10^3/uL (0.0-0.2); BASO % 1 % (0-3); EOS # 0.3 x10^3/uL (0.0-0.7); EOS % 3 % (0-3); HEMATOCRIT 40.4 % (36.0-47.0); HEMOGLOBIN 13.8 g/dL (12.0-15.5); LYMPH # 2.1 x10^3/uL (1.0-4.8); LYMPH % 23 % (24-48); MEAN CORPUSCULAR HEMOGLOBIN 29 pg (25-35); MEAN CORPUSCULAR HGB CONC 34 g/dL (31-37); MEAN CORPUSCULAR VOLUME 84 fL (79-100); MONO # 0.6 x10^3/uL (0.0-1.1); MONO % 7 % (0-9); NEUT # 6.1 x10^3/uL (1.8-7.7); NEUT % 67 % (31-73); PLATELET COUNT 299 x10^3/uL (140-400); RED CELL DISTRIBUTION WIDTH 14.6 % (11.5-14.5); WHITE BLOOD COUNT 9.2 x10^3/uL (4.0-11.0)
--- NOTE | 2020-05-26 10:01 | RAD ---
EXAM: Chest, single view. HISTORY: Chest pain. COMPARISON: 12/14/2018 FINDINGS: A frontal view of the chest is obtained. There is no infiltrate, pleural effusion or pneumothorax. The heart is normal in size IMPRESSION: No acute pulmonary finding. Electronically signed by: Inna Barnard MD (05/26/2020 9:58 AM) [facility]
[2020-05-26] MEDS ORDERED: ASPIRIN CHEWABLE 81 MG TABLET. PO ONE ×2 (10:15→12:00)
[2020-05-26] MEDS: HYDROmorphone 2 MG/ML VIAL IV PRN ×2 (10:32→11:26)
[2020-05-26 10:37] LABS: CALCIUM 8.7 mg/dL (8.5-10.1); CREATININE 1.1 mg/dL (0.6-1.0); POTASSIUM 4.4 mmol/L (3.5-5.1)
[2020-05-26 10:43] LABS: ALBUMIN 3.4 g/dL (3.4-5.0); DIRECT BILIRUBIN 0.1 mg/dL (0.0-0.2); TOTAL BILIRUBIN 0.2 mg/dL (0.2-1.0); TOTAL PROTEIN 7.4 g/dL (6.4-8.2)
[2020-05-26] MEDS ORDERED: IOHEXOL 300 MG/ML 100ML VIAL. IV ONE (10:45)
[2020-05-26] MEDS ORDERED: CONTRAST GIVEN. MC PRN (11:00)
--- NOTE | 2020-05-26 11:24 | EKG ---
[facility] [address] [place] [address] Test Date: 2020-05-26 Test Time: 09:21:08 Pat Name: JESSI CRESPO Department: Room: Gender: F [employer]: : 1975 Requested By: SE BROWN Order Number: [id number] Reading MD: Measurements Intervals [place] Rate: 116 P: 9 AK: 154 QRS: -18 QRSD: 84 T: 49 QT: 322 QTc: 454 Interpretive Statements SINUS TACHYCARDIA LEFTWARD AXIS R-S TRANSITION ZONE IN V LEADS DISPLACED TO THE LEFT QRS(T) CONTOUR ABNORMALITY CONSISTENT WITH INFERIOR INFARCT PROBABLY OLD ABNORMAL ECG RI6.02 No previous ECG available for comparison
[2020-05-26] MEDS ORDERED: LORazepam 0.5 MG TABLET PO ONE (12:15)
--- NOTE | 2020-05-26 12:47 | RAD ---
EXAM: CT HEAD WO CONTRAST, CT ANGIOGRAPHY HEAD AND NECK DATE: 05/26/2020 9:58 AM INDICATION: dizziness and speech disturbances. / Spl. Instructions: / History: TECHNIQUE: 5 mm axial tomographic images were obtained through the head before contrast. CTA angiogram of the head and neck was obtained after IV bolus administration of 60 cc of Omnipaque 300. The images were sent to workstation and multiplanar reconstructions were obtained. Multiplanar reconstruction images to include MIP and 3-D reconstruction images are submitted. One or more of the following dose reduction techniques were utilized: Automated exposure control (AEC), Adjustment of mA and/or kV according to patient size, Use of iterative reconstruction technique such as ASiR, CT scan done according to ALARA and image gently/image wisely COMPARISON: CT head 05/24/2019, CT head 09/04/2017. FINDINGS: Noncontrast CT: The brain parenchyma is normal in attenuation. No intra- or extra-axial mass or fluid collection. No hyperdense intracranial hemorrhage. Stable ventriculomegaly. There is normal fleming-white matter differentiation. The subarachnoid cisterns are patent. The visualized paranasal sinuses are well aerated. The mastoid air cells are clear. The visualized portions of the orbits are normal. No aggressive osseous lesion or fracture. CTA Head: The visualized distal internal carotid arteries, anterior and middle cerebral arteries are patent and normal caliber. The distal vertebral arteries, basilar artery, and posterior cerebral arteries are patent and normal caliber. No aneurysm or arteriovenous malformation is seen. CTA Neck: Right carotid: The right common carotid artery is patent and normal caliber. The carotid bifurcation is normal. No stenosis of the right internal carotid artery per NASCET criteria. The right external carotid artery is patent. Left carotid: The left common carotid artery is patent and normal caliber. The carotid bifurcation is normal. No stenosis of the left internal carotid artery per NASCET criteria. The left external carotid artery is patent. Right vertebral: The right vertebral artery is patent and normal caliber. Left vertebral: The left vertebral artery is patent and normal caliber. The visualized portions of the aortic arch are normal. The origins of the brachiocephalic and subclavian arteries are normal. No cervical lymphadenopathy. The thyroid gland is normal. The parotid and submandibular glands are normal. The visualized aerodigestive tract is unremarkable. The cervical spine is normal. The visualized portions of the lungs are clear. IMPRESSION: 1. No intracranial hemorrhage or loss of fleming-white differentiation. Stable ventriculomegaly. 2. No aneurysm. No intracranial stenosis or occlusion. 3. No stenosis or dissection of the cervical carotid or vertebral arteries. PQRS Compliance Statement - Stenosis calculations for CT, MR and conventional angiography are based upon measurement of the distal ICA diameter in accordance with the NASCET methodology. Electronically signed by: Blake Meyers MD (05/26/2020 12:44 PM) [id number]
[2020-05-26 15:10] VITALS: BP 112/83
[2020-05-26] MEDS: oxyCODONE/APAP 10/325 1 TAB TABLET PO PRN (15:10)
--- NOTE | 2020-05-26 15:11 | PDOC1 ---
History and Physical Date of Admission Date of Admission DATE: 05/26/20 TIME: 15:10 Identification/Chief Complaint Chief Complaint SEEN IN ER WITH with chest pain and speech disturbance with dizziness. She woke up with a pressure in her chest that did not get better with her anxiety medications. //had dizziness when she was walking and had trouble with her speech. Her last known well was last night around 1 AM. She denies a history of stroke. She has a history of diabetes. She denies any diplopia or numbness or weakness of her arms or legs. Her dizziness has resolved now and she reports normal speech on arrival to the emergency department. SEEN WITH IN ROOM Review of systems negative for headache neck pain nuchal rigidity abdominal pain vomiting fevers or rashes. 14 PT review of systems OTHERWISE negative. 44-year-old femalewith chest pain speech disturbance and dizziness last known well was 1 AM. // is outside of TPA window. Past Medical History Past Medical History Past Medical History Past Medical History Past Medical History: Anxiety, Depression, Diabetes-Type II, Hypothyroid, Other Additional Past Medical Histor: back pain, DDD Past Surgical History: Cholecystectomy, Other Additional Past Surgical Histo: LEEP procedure for HPV Smoking Status: Never Smoker Alcohol Use: Occasionally Drug Use: None fhx obesity Cardiovascular: HTN Psych: Depression, Panic Musculoskeletal: low back pain Past Surgical History Past Surgical History: Cholecystectomy, Other Family History Family History: Hypertension Social History Smoke: <1 pack per day ALCOHOL: occassional Drugs: None Current Problem List Problem List Problems Medical Problems: (1) Chest pain Status: Acute (2) Dizziness Status: Acute (3) Speech disturbance Status: Acute (4) TIA (transient ischemic attack) Status: Acute Current Medications Current Medications Current Medications Sodium Chloride 1,000 ml @ 1,000 mls/hr 1X ONCE IV Last administered on 05/26/20at 10:01; Start 05/26/20 at 09:30; Stop 05/26/20 at 10:29; Status DC Hydromorphone HCl (Dilaudid) 0.5 mg PRN Q30MIN PRN IV SEVERE PAIN 7-10 Last administered on 05/26/20at 11:26; Start 05/26/20 at 10:15 Aspirin (Aspirin Chewable) 324 mg 1X ONCE PO Last administered on 05/26/20at 10:31; Start 05/26/20 at 10:15; Stop 05/26/20 at 12:02; Status DC Iohexol (Omnipaque 300 Mg/ml) 60 ml 1X ONCE IV Last administered on 05/26/20at 10:45; Start 05/26/20 at 10:45; Stop 05/26/20 at 10:46; Status DC Info (CONTRAST GIVEN -- Rx MONITORING) 1 each PRN DAILY PRN MC SEE COMMENTS; Start 05/26/20 at 11:00; Stop 05/28/20 at 10:59 Aspirin (Aspirin Chewable) 162 mg 1X ONCE PO ; Start 05/26/20 at 12:00; Stop 05/26/20 at 12:05; Status DC Lorazepam (Ativan) 1 mg 1X ONCE PO Last administered on 05/26/20at 12:25; Start 05/26/20 at 12:15; Stop 05/26/20 at 12:16; Status DC Oxycodone/ Acetaminophen (Percocet 10/325) 1 tab PRN TID PRN PO PRN; Start 05/26/20 at 15:00 Oxycodone/ Acetaminophen (Percocet 5/325) 1 tab PRN Q6HRS PRN PO PAIN; Start 05/26/20 at 15:00 Active Scripts Active Medrol (Methylprednisolone) 4 Mg Tab.ds.pk 1 Pkg PO UD Percocet 5-325 Mg Tablet (Oxycodone/Acetaminophen) 1 Each Tablet 1 Tab PO PRN Q6HRS PRN Orphenadrine Citrate 100 Mg Tablet.er 1 Tab PO BID Zofran (Ondansetron Hcl) 4 Mg Tablet 1 Tab PO PRN Q6-8HRS [place] 5-325 Tablet (Acetaminophen/Hydrocodone Bitart) 1 Each Tablet 1 Tab PO PRN Q6HRS PRN Orphenadrine Citrate 100 Mg Tablet.er 1 Tab PO BID PRN 10 Days Naproxen 500 Mg Tablet 500 Mg PO BID 10 Days Macrobid 100 Mg Capsule (Nitrofurantoin Monohyd/M-Cryst) 100 Mg Capsule 100 Mg PO BID 1 twice a day for UTI Zofran Odt (Ondansetron) 8 Mg Tab.rapdis 1 Tab PO Q8HRS One every 6-8 hours as needed for nausea Reported Trazodone Hcl 150 Mg Tablet 150 Mg PO HS PRN Gabapentin 600 Mg Tablet 400 Mg PO TID Prozac (Fluoxetine Hcl) 40 Mg Capsule 40 Mg PO DAILY Ms Contin (Morphine Sulfate) 30 Mg Tablet.er 60 Mg PO BID Percocet 10-325 Mg Tablet (Oxycodone/Acetaminophen) 1 Each Tablet 1 Each PO TID PRN Allergies Allergies: Coded Allergies: tizanidine (Verified Allergy, Mild, HALLUCINATIONS, 05/26/20) venlafaxine (Verified Allergy, Unknown, 07/02/18) ROS General: No: Chills, Night Sweats, Fatigue, Malaise, Appetite, Other PSYCHOLOGICAL ROS: YES: Anxiety; No: Behavioral Disorder, Concentration difficultie, Decreased libido, Depression, Disorientation, Hallucinations, Hostility, Irritablity, Memory difficulties, Mood Swings, Obsessive thoughts, Physical abuse, Sexual abuse, Sleep disturbances, Suicidal ideation, Other Hematological and Lymphatic: No: Bleeding Problems, Blood Clots, Blood Transfusions, Brusing, Night Sweats, Pallor, Swollen Lymph Nodes, Other Breast: No New/Changing Breast Lumps, No Nipple changes, No Nipple discharge, No Other Respiratory: No: Cough, Hemoptysis, Orthopnea, Pleuritic Pain, Shortness of breath, SOB with excertion, Sputum Changes, Stridor, Tachypnea, Wheezing, Other Cardiovascular: yes Chest Pain Gastrointestinal: No Nausea, No Vomiting, No Abdominal Pain, No Diarrhea, No Constipation, No Melena, No Hematochezia, No Other Musculoskeletal: Yes Gait Disturbance, Yes Joint Stiffness Neurological: Yes Dizziness, Yes Gait Disturbance Physical Exam Physical Exam Constitutional: Well developed, well nourished, no acute distress, non-toxic appearance. [] HENT: Normocephalic, atraumatic, bilateral external ears normal, oropharynx moist, no oral exudates, nose normal. [] Eyes: PERRLA, EOMI, conjunctiva normal, no discharge. [] Neck: Normal range of motion, no tenderness, supple, no stridor. [] Cardiovascular:Heart rate regular rhythm, no murmur [] Lungs & Thorax: Bilateral breath sounds clear to auscultation [] Abdomen: Bowel sounds normal, soft, no tenderness, no masses, no pulsatile masses. [] Skin: Warm, dry, no erythema, no rash. [] Back: No tenderness, no CVA tenderness. [] Extremities: No tenderness, no cyanosis, no clubbing, ROM intact, no edema. 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 moist/pink Lungs: Clear to auscultation Heart: RRR Breasts: Not examined Abdomen: Normal bowel sounds, Soft Rectal Exam: not examined PELVIC: Examination not indicated Extremities: No cyanosis, No edema Skin: No significant lesion Neuro: Normal speech, Sensation intact, Cranial nerves 3-12 NL Psych/Mental Status: Mental status NL, Mood NL Vitals Vitals Vital Signs Date Time Temp Pulse Resp B/P (MAP) Pulse Ox O2 Delivery O2 Flow Rate FiO2 05/26/20 12:21 96 18 110/61 (77) 96 Room Air 05/26/20 09:15 98.6 98.6 Labs Labs Laboratory Tests Test 05/26/20 09:25 05/26/20 10:05 05/26/20 10:56 White Blood Count 9.2 x10^3/uL (4.0-11.0) Red Blood Count 4.80 x10^6/uL (3.50-5.40) Hemoglobin 13.8 g/dL (12.0-15.5) Hematocrit 40.4 % (36.0-47.0) Mean Corpuscular Volume 84 fL (79-100) Mean Corpuscular Hemoglobin 29 pg (25-35) Mean Corpuscular Hemoglobin Concent 34 g/dL (31-37) Red Cell Distribution Width 14.6 % (11.5-14.5) Platelet Count 299 x10^3/uL (140-400) Neutrophils (%) (Auto) 67 % (31-73) Lymphocytes (%) (Auto) 23 % (24-48) Monocytes (%) (Auto) 7 % (0-9) Eosinophils (%) (Auto) 3 % (0-3) Basophils (%) (Auto) 1 % (0-3) Neutrophils # (Auto) 6.1 x10^3/uL (1.8-7.7) Lymphocytes # (Auto) 2.1 x10^3/uL (1.0-4.8) Monocytes # (Auto) 0.6 x10^3/uL (0.0-1.1) Eosinophils # (Auto) 0.3 x10^3/uL (0.0-0.7) Basophils # (Auto) 0.1 x10^3/uL (0.0-0.2) D-Dimer (Valentine) 0.32 ug/mlFEU (0.00-0.50) Sodium Level 135 mmol/L (136-145) Potassium Level 4.4 mmol/L (3.5-5.1) Chloride Level 100 mmol/L (98-107) Carbon Dioxide Level 24 mmol/L (21-32) Anion Gap 11 (6-14) Blood Urea Nitrogen 15 mg/dL (7-20) Creatinine 1.1 mg/dL (0.6-1.0) Estimated GFR (Cockcroft-Gault) 54.0 Glucose Level 223 mg/dL (70-99) Calcium Level 8.7 mg/dL (8.5-10.1) Total Bilirubin 0.2 mg/dL (0.2-1.0) Direct Bilirubin 0.1 mg/dL (0.0-0.2) Aspartate Amino Transf (AST/SGOT) 21 U/L (15-37) Alanine Aminotransferase (ALT/SGPT) 30 U/L (14-59) Alkaline Phosphatase 69 U/L (46-116) Troponin I Quantitative < 0.017 ng/mL (0.000-0.055) PS-Qyx-Q-Type Natriuretic Peptide 29 pg/mL (0-124) Total Protein 7.4 g/dL (6.4-8.2) Albumin 3.4 g/dL (3.4-5.0) Lipase 70 U/L (73-393) Bedside Urine HCG, Qualitative Hcg negative (Negative) Laboratory Tests Test 05/26/20 09:25 05/26/20 10:05 05/26/20 10:56 White Blood Count 9.2 x10^3/uL (4.0-11.0) Red Blood Count 4.80 x10^6/uL (3.50-5.40) Hemoglobin 13.8 g/dL (12.0-15.5) Hematocrit 40.4 % (36.0-47.0) Mean Corpuscular Volume 84 fL (79-100) Mean Corpuscular Hemoglobin 29 pg (25-35) Mean Corpuscular Hemoglobin Concent 34 g/dL (31-37) Red Cell Distribution Width 14.6 % (11.5-14.5) Platelet Count 299 x10^3/uL (140-400) Neutrophils (%) (Auto) 67 % (31-73) Lymphocytes (%) (Auto) 23 % (24-48) Monocytes (%) (Auto) 7 % (0-9) Eosinophils (%) (Auto) 3 % (0-3) Basophils (%) (Auto) 1 % (0-3) Neutrophils # (Auto) 6.1 x10^3/uL (1.8-7.7) Lymphocytes # (Auto) 2.1 x10^3/uL (1.0-4.8) Monocytes # (Auto) 0.6 x10^3/uL (0.0-1.1) Eosinophils # (Auto) 0.3 x10^3/uL (0.0-0.7) Basophils # (Auto) 0.1 x10^3/uL (0.0-0.2) D-Dimer (Valentine) 0.32 ug/mlFEU (0.00-0.50) Sodium Level 135 mmol/L (136-145) Potassium Level 4.4 mmol/L (3.5-5.1) Chloride Level 100 mmol/L (98-107) Carbon Dioxide Level 24 mmol/L (21-32) Anion Gap 11 (6-14) Blood Urea Nitrogen 15 mg/dL (7-20) Creatinine 1.1 mg/dL (0.6-1.0) Estimated GFR (Cockcroft-Gault) 54.0 Glucose Level 223 mg/dL (70-99) Calcium Level 8.7 mg/dL (8.5-10.1) Total Bilirubin 0.2 mg/dL (0.2-1.0) Direct Bilirubin 0.1 mg/dL (0.0-0.2) Aspartate Amino Transf (AST/SGOT) 21 U/L (15-37) Alanine Aminotransferase (ALT/SGPT) 30 U/L (14-59) Alkaline Phosphatase 69 U/L (46-116) Troponin I Quantitative < 0.017 ng/mL (0.000-0.055) PR-Lvz-C-Type Natriuretic Peptide 29 pg/mL (0-124) Total Protein 7.4 g/dL (6.4-8.2) Albumin 3.4 g/dL (3.4-5.0) Lipase 70 U/L (73-393) Bedside Urine HCG, Qualitative Hcg negative (Negative) Images Images EXAM: Chest, single view. HISTORY: Chest pain. COMPARISON: 12/14/2018 FINDINGS: A frontal view of the chest is obtained. There is no infiltrate, pleural effusion or pneumothorax. The heart is normal in size IMPRESSION: No acute pulmonary finding. Electronically signed by: Inna Jacome MD (05/26/2020 9:58 AM) [facility] DICTATED and SIGNED BY: INNA JACOME MD DATE: 05/26/20 0958 EXAM: CT HEAD WO CONTRAST, CT ANGIOGRAPHY HEAD AND NECK DATE: 05/26/2020 9:58 AM INDICATION: dizziness and speech disturbances. / Spl. Instructions: / History: TECHNIQUE: 5 mm axial tomographic images were obtained through the head before contrast. CTA angiogram of the head and neck was obtained after IV bolus administration of 60 cc of Omnipaque 300. The images were sent to workstation and multiplanar reconstructions were obtained. Multiplanar reconstruction images to include MIP and 3-D reconstruction images are submitted. One or more of the following dose reduction techniques were utilized: Automated exposure control (AEC), Adjustment of mA and/or kV according to patient size, Use of iterative reconstruction technique such as ASiR, CT scan done according to ALARA and image gently/image wisely COMPARISON: CT head 05/24/2019, CT head 09/04/2017. FINDINGS: Noncontrast CT: The brain parenchyma is normal in attenuation. No intra- or extra-axial mass or fluid collection. No hyperdense intracranial hemorrhage. Stable ventriculomegaly. There is normal fleming-white matter differentiation. The subarachnoid cisterns are patent. The visualized paranasal sinuses are well aerated. The mastoid air cells are clear. The visualized portions of the orbits are normal. No aggressive osseous lesion or fracture. CTA Head: The visualized distal internal carotid arteries, anterior and middle cerebral arteries are patent and normal caliber. The distal vertebral arteries, basilar artery, and posterior cerebral arteries are patent and normal caliber. No aneurysm or arteriovenous malformation is seen. CTA Neck: Right carotid: The right common carotid artery is patent and normal caliber. The carotid bifurcation is normal. No stenosis of the right internal carotid artery per NASCET criteria. The right external carotid artery is patent. Left carotid: The left common carotid artery is patent and normal caliber. The carotid bifurcation is normal. No stenosis of the left internal carotid artery per NASCET criteria. The left external carotid artery is patent. Right vertebral: The right vertebral artery is patent and normal caliber. Left vertebral: The left vertebral artery is patent and normal caliber. The visualized portions of the aortic arch are normal. The origins of the brachiocephalic and subclavian arteries are normal. No cervical lymphadenopathy. The thyroid gland is normal. The parotid and submandibular glands are normal. The visualized aerodigestive tract is unremarkable. The cervical spine is normal. The visualized portions of the lungs are clear. IMPRESSION: 1. No intracranial hemorrhage or loss of fleming-white differentiation. Stable ventriculomegaly. 2. No aneurysm. No intracranial stenosis or occlusion. 3. No stenosis or dissection of the cervical carotid or vertebral arteries. PQRS Compliance Statement - Stenosis calculations for CT, MR and conventional angiography are based upon measurement of the distal ICA diameter in accordance with the NASCET methodology. Electronically signed by: Blake Meyers MD (05/26/2020 12:44 PM) [id number] VTE Prophylaxis Ordered VTE Prophylaxis Devices: Yes VTE Pharmacological Prophylaxi: Yes Assessment/Plan Assessment/Plan Impression: Chest pain GERD Morbid obesity Dizziness Speech disturbance TIA (transient ischemic attack) No intracranial hemorrhage or loss of fleming-white differentiation. Stable ventriculomegaly. cta of head 05/26 ADMITTED CARDIOLOGY CONSULT NEUROLOGY CONSULT serial troponin i dvt prophylaxis protonix 40 mg po daily neurochecks q 4 hrs 76 min pt exam, chart review, > 50% of time spent with exam, chart review, pt care coordination DPOA IS AD DISCUSSION 14 MIN CPR (cardiopulmonary resuscitation) Ventilator use Artificial nutrition (tube feeding) and artificial hydration (IV, or intravenous, fluids) Comfort care What is CPR? Cardiopulmonary resuscitation might restore your heartbeat if your heart stops or is in a life-threatening abnormal rhythm. It involves repeatedly pushing on the chest with force, while putting air into the lungs. This force has to be quite strong, and sometimes ribs are broken or a lung collapses. Electric shocks, known as defibrillation, and medicines might also be used as part of the process. The heart of a young, otherwise healthy person might resume beating normally after CPR. Often, CPR does not succeed in older adults who have multiple chronic illnesses or who are already frail. Using a ventilator as emergency treatment. Ventilators are machines that help you breathe. A tube connected to the ventilator is put through the throat into the trachea (windpipe) so the machine can force air into the lungs. Putting the tube down the throat is called intubation. Because the tube is uncomfortable, medicines are often used to keep you sedated while on a ventilator. If you are expected to remain on a ventilator for a long time, a doctor may perform a tracheotomy or "trach" (rhymes with "make"). During this bedside surgery, the tube is inserted directly into the trachea through a hole in the neck. For long- term help with breathing, a trach is more comfortable, and sedation is not needed. People using such a breathing tube are not able to speak without special help because exhaled air does not go past their vocal cords. Using artificial nutrition and hydration near the end of life. If you are not able to eat, you may be fed through a feeding tube that is threaded through the nose down to your stomach. If tube feeding is still needed for an extended period, a feeding tube may be surgically inserted directly into your stomach. Hand feeding (sometimes called assisted oral feeding) is an alternative to tube feeding. This approach may have fewer risks, especially for people with dementia. If you are not able to drink, you may be provided with IV fluids. These are delivered through a thin plastic tube inserted into a vein. Artificial nutrition and hydration can be helpful if you are recovering from an illness. However, studies have shown that artificial nutrition toward the end of life does not meaningfully prolong life. Artificial nutrition and hydration may also be harmful if the dying body cannot use the nutrition properly. Justifications for Admission Other Justification DEVAUGHN GALARZA MD May 26, 2020 15:10
[2020-05-26] MEDS ORDERED: SODIUM PHOSPHATES 19/7GM 133 ML ENEMA. PR PRN (16:00)
[2020-05-26] MEDS ORDERED: DOCUSATE SODIUM 100 MG CAPSULE. PO PRN (16:00)
[2020-05-26] MEDS ORDERED: ACETAMINOPHEN 325 MG TABLET. PO PRN (16:00)
[2020-05-26] MEDS ORDERED: 0.9 % SODIUM CHLORIDE 10 ML DISP.SYRIN. IV PRN (16:00)
[2020-05-26] MEDS ORDERED: MAG HYDROX/ALUMINUM HYD/SIMETH 30 ML ORAL.SUSP PO PRN (16:00)
[2020-05-26] MEDS ORDERED: guaiFENesin ORAL 200 MG/10 ML LIQUID. PO PRN (16:00)
[2020-05-26] MEDS ORDERED: METF500T16 PO (16:14)
[2020-05-26] MEDS ORDERED: OXYC30TA3 PO (16:14)
[2020-05-26] MEDS ORDERED: MULT-505 PO (16:14)
[2020-05-26] MEDS ORDERED: VIT1TABL62 PO (16:14)
[2020-05-26] MEDS ORDERED: DULO60CA6 PO (16:14)
[2020-05-26] MEDS ORDERED: DIPH25CA58 PO (16:14)
[2020-05-26] MEDS ORDERED: TRAZ300T2 PO (16:14)
[2020-05-26] MEDS ORDERED: IBUP-577 PO (16:14)
[2020-05-26] MEDS ORDERED: OMEP20TA63 PO (16:15)
[2020-05-26] MEDS ORDERED: PANTOPRAZOLE 40 MG TABLET.DR. PO ONE (16:30)
--- NOTE | 2020-05-26 16:37 | PDOC2 ---
AIDE FIELD DATA TECHNICAL LEAD 05/26/20 1637: CARDIAC CONSULT DATE OF CONSULT Date of Consult DATE: 05/26/20 TIME: 16:21 REASON FOR CONSULT Reason for Consult: Chest pain REFERRING PHYSICIAN Referring Physician: Tina SOURCE Source: Chart review, Patient HISTORY OF PRESENT ILLNESS HISTORY OF PRESENT ILLNESS This is a pleasant 44 yo female admitted for complains of chest pain and some dizziness. Reports she woke up this morning feeling nagging lower midsternal discomfort and confirmed bulging sensation. Also recently she has been modifying her diet and about to start on keto diet.Has been having heartburn every other day despite PPI. This chest discomfort feels like sometimes like a band around her lower ribcage. No nausea or vomiting. No associated fever or chills. She has been having some nasal congestion and more throat clearing at night. NO visual or auditory disturbances. Denies any hx of DM or HTN but does use statin. There was also a complaint of trouble with her speech but currently she does not have neuro focal deficits. No recent falls or any injury. No GORDON and no exertional CP and no hx of CAD, arrhythmias, CVA, TIA. She has 6 children and able to take of them without difficulty. No hx of VTE and also takes 800 mg of ibuprofen daily PAST MEDICAL HISTORY Cardiovascular: Hyperlipidemia Endocrine: Other (hashimotos) PAST SURGICAL HISTORY Past Surgical History: Cholecystectomy, Other (LEEP) FAMILY HISTORY Family History: Coronary Artery Disease (grandfather) SOCIAL HISTORY Smoke: No ALCOHOL: occassional Drugs: None Lives: with Family CURRENT MEDICATIONS CURRENT MEDICATIONS Current Medications Medications (Trade) Dose Ordered Sig/Brandi Route PRN Reason Start Time Stop Time Status Last Admin Dose Admin Sodium Chloride 1,000 ml @ 1,000 mls/hr 1X ONCE IV 05/26/20 09:30 05/26/20 10:29 DC 05/26/20 10:01 Hydromorphone HCl (Dilaudid) 0.5 mg PRN Q30MIN PRN IV SEVERE PAIN 7-10 05/26/20 10:15 05/26/20 11:26 Aspirin (Aspirin Chewable) 324 mg 1X ONCE PO 05/26/20 10:15 05/26/20 12:02 DC 05/26/20 10:31 Iohexol (Omnipaque 300 Mg/ml) 60 ml 1X ONCE IV 05/26/20 10:45 05/26/20 10:46 DC 05/26/20 10:45 Lorazepam (Ativan) 1 mg 1X ONCE PO 05/26/20 12:15 05/26/20 12:16 DC 05/26/20 12:25 Oxycodone/ Acetaminophen (Percocet ) 1 tab PRN TID PRN PO SEVERE PRN 05/26/20 15:00 05/26/20 15:10 ALLERGIES ALLERGIES: Coded Allergies: tizanidine (Verified Allergy, Mild, HALLUCINATIONS, 05/26/20) venlafaxine (Verified Allergy, Unknown, 07/02/18) ROS Review of System 14 point ROS evaluated with pertinent positives noted per HPI PHYSICAL EXAM General: Alert, Oriented X3, Cooperative, No acute distress HEENT: Atraumatic, Mucous membr. moist/pink Lungs: Clear to auscultation, Normal air movement Heart: Regular rate (SR), Normal S1, Normal S2, No murmurs Abdomen: Soft, No tenderness, Other (obese) Extremities: No cyanosis, No edema Skin: No breakdown, No significant lesion Neuro: Normal speech, Sensation intact Psych/Mental Status: Mental status NL, Mood NL MUSCULOSKELETAL: Osteoarthritic changes both hands VITALS/I&O VITALS/I&O: Vital Signs Date Time Temp Pulse Resp B/P (MAP) Pulse Ox O2 Delivery O2 Flow Rate FiO2 05/26/20 15:10 98.6 100 22 112/83 (93) 94 Room Air 98.6 LABS Lab: Laboratory Tests Test 05/26/20 09:25 05/26/20 10:05 05/26/20 10:56 White Blood Count 9.2 x10^3/uL (4.0-11.0) Red Blood Count 4.80 x10^6/uL (3.50-5.40) Hemoglobin 13.8 g/dL (12.0-15.5) Hematocrit 40.4 % (36.0-47.0) Mean Corpuscular Volume 84 fL (79-100) Mean Corpuscular Hemoglobin 29 pg (25-35) Mean Corpuscular Hemoglobin Concent 34 g/dL (31-37) Red Cell Distribution Width 14.6 % (11.5-14.5) H Platelet Count 299 x10^3/uL (140-400) Neutrophils (%) (Auto) 67 % (31-73) Lymphocytes (%) (Auto) 23 % (24-48) L Monocytes (%) (Auto) 7 % (0-9) Eosinophils (%) (Auto) 3 % (0-3) Basophils (%) (Auto) 1 % (0-3) Neutrophils # (Auto) 6.1 x10^3/uL (1.8-7.7) Lymphocytes # (Auto) 2.1 x10^3/uL (1.0-4.8) Monocytes # (Auto) 0.6 x10^3/uL (0.0-1.1) Eosinophils # (Auto) 0.3 x10^3/uL (0.0-0.7) Basophils # (Auto) 0.1 x10^3/uL (0.0-0.2) D-Dimer (Valentine) 0.32 ug/mlFEU (0.00-0.50) Sodium Level 135 mmol/L (136-145) L Potassium Level 4.4 mmol/L (3.5-5.1) Chloride Level 100 mmol/L (98-107) Carbon Dioxide Level 24 mmol/L (21-32) Anion Gap 11 (6-14) Blood Urea Nitrogen 15 mg/dL (7-20) Creatinine 1.1 mg/dL (0.6-1.0) H Estimated GFR (Cockcroft-Gault) 54.0 Glucose Level 223 mg/dL (70-99) H Calcium Level 8.7 mg/dL (8.5-10.1) Total Bilirubin 0.2 mg/dL (0.2-1.0) Direct Bilirubin 0.1 mg/dL (0.0-0.2) Aspartate Amino Transferase (AST) 21 U/L (15-37) Alanine Aminotransferase (ALT) 30 U/L (14-59) Alkaline Phosphatase 69 U/L (46-116) Troponin I Quantitative < 0.017 ng/mL (0.000-0.055) EN-Mdk-A-Type Natriuretic Peptide 29 pg/mL (0-124) Total Protein 7.4 g/dL (6.4-8.2) Albumin 3.4 g/dL (3.4-5.0) Lipase 70 U/L (73-393) L POC Urine HCG, Qualitative Hcg negative (Negative) Laboratory Tests 05/26/20 09:25 Laboratory Tests 05/26/20 10:05 ASSESSMENT/PLAN ASSESSMENT/PLAN 1. Atypical CP: suspect GI. good functional capacity. Doubt ACS. EKG SR without acute changes 2. GERD exacerbation 3. Dizziness: dysequilibrium component likely induced which could also be induced by GERD. BP is well controlled 4. HLP 5. DM2 6. Obesity 7. Chronic NSAID use: takes 800 mg ibuprofen daily Recommendations 1. PPI. Restart statin 2. Monitor rhythm. Could consider outpt TTE and stress test. 3. Diet modification to alleviate GERD exacerbation, need to change NSAID to PRN 4. Lipids and TSH, trend troponin OPAL BARRY MD 05/26/20 1721: CARDIAC CONSULT ASSESSMENT/PLAN ASSESSMENT/PLAN Patient seen and examined Chest pain. Atypical. No acute EKG changes. Will rule out. Possible GERD exacerbation. On PPI. Chronic NSAID use. Episodes of dizziness. Continue on telemetry and monitor. Hyperlipidemia. Checking lab. Statin. Diabetes mellitus. As per the primary service. Thank you for allowing us to participate in the care of your patient AIDE FIELD APRN May 26, 2020 16:37 OPAL BARRY MD May 26, 2020 17:21
[2020-05-26] MEDS ORDERED: metFORMIN 500 MG TABLET PO SCH (17:00)
[2020-05-26] MEDS: IV NORMAL SALINE 1000ML BAG 1,000 ML IV SCH (17:00)
[2020-05-26] MEDS ORDERED: CYCLOBENZAPRINE 10 MG TABLET. PO PRN (17:15)
[2020-05-26 19:15] VITALS: BP 100/71
[2020-05-26] MEDS ORDERED: IPRATRPIUM/ALBUTEROL 0.5/2.5MG 3 ML NEBU. NEB SCH (20:00)
[2020-05-26] MEDS ORDERED: ALBUTEROL SULFATE 2.5 MG/3 ML NEBU. NEB PRN (20:00)
[2020-05-26] MEDS: oxyCODONE/APAP 5/325 1 TAB TABLET PO PRN (20:14)
[2020-05-26] MEDS: ONDANSETRON ODT 4 MG TAB.RAPDIS. PO SCH (20:14)
[2020-05-26] MEDS ORDERED: traZODone 100 MG TABLET. PO SCH (21:00)
[2020-05-26] MEDS ORDERED: diphenhydrAMINE HCL 25 MG CAPSULE PO SCH (21:00)
[2020-05-26] MEDS ORDERED: ENOXAPARIN 40 MG/0.4 ML SYRINGE. SQ SCH (21:00)
[2020-05-26 22:45] VITALS: BP 118/79
--- NOTE | 2020-05-26 23:12 | CONS ---
DATE OF CONSULTATION: 05/26/2020 REFERRING PHYSICIAN: Clark Velez MD REASON FOR CONSULTATION: Evaluate for transient ischemic attack. HISTORY OF PRESENT ILLNESS: The patient is a pleasant 44-year-old woman who presented to the Emergency Department with chest pain, speech disturbance and dizziness. She woke up with a pressure in her chest that did not improve with her antianxiety medications. The dizziness gave her a sense of spinning and difficulty walking. She felt she had trouble getting out her words. Last known normal was at 1:00 a.m. prior to admission. The symptoms lasted about 4 hours and have fully resolved. She does have a history of diabetes. She did not report focal numbness or weakness. PAST MEDICAL HISTORY: 1. Anxiety. 2. Depression. 3. Type 2 diabetes. 4. Hypothyroidism. 5. Back pain. 6. Obesity. 7. Degenerative disk disease. 8. Cholecystectomy. 9. LEEP procedure for HPV. 10. Previous admission for unilateral weakness with a negative investigation for stroke in 2015. ALLERGIES: TIZANIDINE AND VENLAFAXINE. MEDICATIONS PRIOR TO ADMISSION: Diphenhydramine 25 mg at night, duloxetine 60 mg, ibuprofen 800 mg, metformin 500 mg twice per day, multivitamin, omeprazole 20 mg, Zofran oral dissolving tablet 8 mg every 8 hours as needed, orphenadrine 100 mg as needed, oxycodone 30 mg as needed, oxycodone/acetaminophen 10/325 three times per day as needed, trazodone 300 mg at night and B12. FAMILY HISTORY: Hypertension. SOCIAL HISTORY: She does not smoke tobacco. She drinks occasional alcohol, does not use recreational drugs. She is . She has 4 children that live at home. 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 The oldest because of social anxiety and the youngest for behavioral disorders. REVIEW OF SYSTEMS: She does not complain of any headache. Her vision was a little fuzzy, but has resolved. There has been no loss of hearing. She is not aware of any cognitive change. She did have trouble with speech that is no longer. She has been able to chew and swallow without choking. She does not have shortness of breath, chest or abdominal pain. Does not have bone or joint pain. There has been no fever or rash. Does not have any gastrointestinal or genitourinary complaint. Does not complain of numbness or focal weakness. She had some dizziness and difficulty with balance, which has resolved. She does not currently have psychiatric complaints. PHYSICAL EXAMINATION: VITAL SIGNS: The blood pressure was 100/71, pulse 97, respirations 20, temperature 98.3 degrees Fahrenheit orally. Oximetry was 96% on room air. GENERAL: She was alert, awake and cooperative. Speech was fluent and clear. She had a good fund of recent and remote knowledge. Attention and concentration was intact. She appeared well groomed and well nourished. She was fully oriented. NEUROLOGIC: Examination of the cranial nerves revealed visual rainey were full to confrontation. Extraocular movements were intact. The eyes were conjugate. Pursuit movements were smooth and saccadic eye movements were without dysmetria. There was no nystagmus. Pupils were 4 mm and reacted. Funduscopic exam did not reveal papilledema, exudate or hemorrhage. Facial sensation was intact. The muscles of mastication and facial expression were powerful symmetrically. Hearing was intact to finger rub. The palate arched symmetrically and the tongue was midline with full motion. Sternocleidomastoid and trapezius were powerful. Muscle bulk and tone was normal. There was no arm or leg drift. The power was full and symmetric in the upper and lower extremities. Reflexes were 2/4 in the upper and lower extremities, diminished at the ankles. The toes were downgoing. Coordination testing with [id number], [id number], fine motor and rapid alternating movements was well performed. The sensory exam was intact to pain, light touch, proprioception, graphesthesia, cold thermal and vibration. There was no extinction to double simultaneous stimulation. Gait was normal base and steady. She is able to heel and toe walk. The Romberg stance was negative. NECK: Auscultation of the carotid arteries did not reveal a bruit. HEART: Rhythm was regular without a murmur. EXTREMITIES: Peripheral pulses were symmetric. There was no edema or cyanosis. LABORATORY DATA: CBC revealed a normal white blood cell count, hemoglobin, hematocrit and platelet count. Chemistries were performed on 05/26/2020 revealing a low sodium of 135. The potassium, chloride and CO2 were normal. BUN was 15 and creatinine 1.1 with a GFR that calculated at 54. Glucose was elevated to 223. Calcium was normal. Liver enzymes were not elevated. Lipase was not elevated. TSH was normal. Troponin has been measured twice and was negative. D-dimer was 0.32. Urine drug screen was negative. DIAGNOSTIC RESULTS: CT scan of the brain and CT angiogram of the head and neck was performed on 05/26/2020. This did not reveal an acute intracranial process. There was no acute vascular lesion. IMPRESSION: The patient is a pleasant 44-year-old woman who had difficulty with blurry vision, speech, dizziness and chest pain. I am relieved that all the neurologic symptoms resolved in about 4 hours. Certainly, it could be a transient ischemic attack, but it seems perhaps more likely that this was an anxiety attack with chest pain, shortness of breath and dizziness. She has undergone a CT angiogram and CT head, which were negative. RECOMMENDATIONS: She will undergo further investigation for TIA with MRI head, echocardiogram and carotid Doppler. Assuming investigations negative, she may be dismissed from a neurologic perspective. DAMASO CARRANZA MD DR: PREMA/sara JOB#: [id number] / [id number]
[2020-05-27 02:45] VITALS: BP 125/81
[2020-05-27] MEDS: IV NORMAL SALINE 1000ML BAG 1,000 ML IV SCH ×2 (03:00→13:00)
[2020-05-27] MEDS: oxyCODONE/APAP 10/325 1 TAB TABLET PO PRN ×2 (03:37→13:50)
[2020-05-27 04:10] LABS: HEMOGLOBIN A1C 7.2 % (4.8-5.6)
[2020-05-27 07:00] VITALS: BP 137/75
[2020-05-27] MEDS ORDERED: PANTOPRAZOLE 40 MG TABLET.DR. PO SCH (07:30)
[2020-05-27] MEDS: oxyCODONE/APAP 5/325 1 TAB TABLET PO PRN (08:53)
[2020-05-27] MEDS: ONDANSETRON ODT 4 MG TAB.RAPDIS. PO SCH ×2 (08:53→13:50)
[2020-05-27] MEDS ORDERED: NON FORMULARY ITEM (Omeprazole Magnesium (Prilosec Otc) 20 MG) PO SCH (09:00)
[2020-05-27] MEDS ORDERED: IBUPROFEN 400 MG TABLET. PO SCH (09:00)
[2020-05-27] MEDS ORDERED: VIT B12 PO SCH (09:00)
[2020-05-27] MEDS ORDERED: MULTIVITAMIN with MINERAL TABLET. PO SCH (09:00)
[2020-05-27] MEDS ORDERED: DULoxetine HCL 30 MG CAPSULE.DR PO SCH (09:00)
[2020-05-27] MEDS ORDERED: [UNRECOGNIZED DRUG - OTHER] PO SCH (09:00)
--- NOTE | 2020-05-27 09:07 | RAD ---
BRAIN W/O CONTRAST Date: 05/26/2020 3:22 PM Indication: Reason: TIA. severe dizziness, blurry vision / Spl. Instructions: / History: Comparison: CT 05/26/2020. Technique: Multiplanar multisequence MRI of the brain was performed without intravenous contrast using the standard protocol. Findings: No acute infarct. No acute or chronic hemorrhage. Unchanged ventriculomegaly. The scalp and calvarium are normal. The pituitary and sella are normal. No Chiari malformation. The visualized upper cervical spine is normal. The visualized orbits and globes are normal. The visualized paranasal sinuses are clear. The mastoid air cells are clear. Normal flow voids within the vertebral, basilar, and internal carotid arteries indicating patency. IMPRESSION: No acute infarct, hemorrhage, or mass. Stable ventriculomegaly. Electronically signed by: Blake Meyers MD (05/27/2020 9:04 AM) [id number]
--- NOTE | 2020-05-27 10:07 | PDOC ---
PROGRESS NOTES Date of Service: DATE: 05/27/20 TIME: 10:07 Chief Complaint Chief Complaint VTE Prophylaxis Ordered VTE Prophylaxis Devices: Yes VTE Pharmacological Prophylaxi: Yes DISCHARGE DX Assessment/Plan Impression: Chest pain GERD Morbid obesity Dizziness Speech disturbance, RESOLVED TIA (transient ischemic attack) No intracranial hemorrhage or loss of fleming-white differentiation. Stable ventriculomegaly. cta of head 05/26 ADMITTED CARDIOLOGY CONSULT OK WITH D/C NEUROLOGY CONSULT OK WITH D/C serial troponin i dvt prophylaxis protonix 40 mg po daily neurochecks q 4 hrs 34 min pt exam, chart review D/C PLANNING , > 50% of time spent with exam, chart review, pt care coordination DPOA IS History of Present Illness History of Present Illness Identification/Chief Complaint Chief Complaint SEEN IN ER WITH with chest pain and speech disturbance with dizziness. She woke up with a pressure in her chest that did not get better with her anxiety medications. //had dizziness when she was walking and had trouble with her speech. Her last known well was last night around 1 AM. She denies a history of stroke. She has a history of diabetes. She denies any diplopia or numbness or weakness of her arms or legs. Her dizziness has resolved now and she reports normal speech on arrival to the emergency department. SEEN WITH IN ROOM Review of systems negative for headache neck pain nuchal rigidity abdominal pain vomiting fevers or rashes. 14 PT review of systems OTHERWISE negative. 44-year-old femalewith chest pain speech disturbance and dizziness last known well was 1 AM. // is outside of TPA window. Past Medical History Past Medical History Past Medical History Past Medical History Past Medical History: Anxiety, Depression, Diabetes-Type II, Hypothyroid, Other Additional Past Medical Histor: back pain, DDD Past Surgical History: Cholecystectomy, Other Additional Past Surgical Histo: LEEP procedure for HPV Smoking Status: Never Smoker Alcohol Use: Occasionally Drug Use: None fhx obesity Cardiovascular: HTN Psych: Depression, Panic Musculoskeletal: low back pain Vitals Vitals Vital Signs Date Time Temp Pulse Resp B/P (MAP) Pulse Ox O2 Delivery O2 Flow Rate FiO2 05/27/20 09:55 95 Room Air 05/27/20 07:00 97.9 97 18 137/75 (95) 97.9 Physical Exam General: Alert, Oriented X3, Cooperative, No acute distress Heart: Regular rate (SR), Normal S1, Normal S2, No murmurs Abdomen: Soft, No tenderness, Other (obese) Extremities: No cyanosis, No edema Skin: No breakdown, No significant lesion Labs LABS Laboratory Tests Test 05/26/20 10:56 05/26/20 16:27 05/26/20 17:00 05/26/20 20:00 Bedside Urine HCG, Qualitative Hcg negative (Negative) Glucose (Fingerstick) 161 mg/dL (70-99) Troponin I Quantitative < 0.017 ng/mL (0.000-0.055) < 0.017 ng/mL (0.000-0.055) Test 05/26/20 21:09 05/27/20 08:22 Glucose (Fingerstick) 168 mg/dL (70-99) 207 mg/dL (70-99) Assessment and Plan Assessmemt and Plan Problems Medical Problems: (1) Chest pain Status: Acute (2) Dizziness Status: Acute (3) Speech disturbance Status: Acute (4) TIA (transient ischemic attack) Status: Acute Comment Review of Relevant I have reviewed the following items celia (where applicable) has been applied. Labs Laboratory Tests Test 05/26/20 09:25 05/26/20 10:05 05/26/20 10:56 05/26/20 16:27 White Blood Count 9.2 x10^3/uL (4.0-11.0) Red Blood Count 4.80 x10^6/uL (3.50-5.40) Hemoglobin 13.8 g/dL (12.0-15.5) Hematocrit 40.4 % (36.0-47.0) Mean Corpuscular Volume 84 fL (79-100) Mean Corpuscular Hemoglobin 29 pg (25-35) Mean Corpuscular Hemoglobin Concent 34 g/dL (31-37) Red Cell Distribution Width 14.6 % (11.5-14.5) Platelet Count 299 x10^3/uL (140-400) Neutrophils (%) (Auto) 67 % (31-73) Lymphocytes (%) (Auto) 23 % (24-48) Monocytes (%) (Auto) 7 % (0-9) Eosinophils (%) (Auto) 3 % (0-3) Basophils (%) (Auto) 1 % (0-3) Neutrophils # (Auto) 6.1 x10^3/uL (1.8-7.7) Lymphocytes # (Auto) 2.1 x10^3/uL (1.0-4.8) Monocytes # (Auto) 0.6 x10^3/uL (0.0-1.1) Eosinophils # (Auto) 0.3 x10^3/uL (0.0-0.7) Basophils # (Auto) 0.1 x10^3/uL (0.0-0.2) D-Dimer (Valentine) 0.32 ug/mlFEU (0.00-0.50) Hemoglobin A1c 7.2 % (4.8-5.6) Sodium Level 135 mmol/L (136-145) Potassium Level 4.4 mmol/L (3.5-5.1) Chloride Level 100 mmol/L (98-107) Carbon Dioxide Level 24 mmol/L (21-32) Anion Gap 11 (6-14) Blood Urea Nitrogen 15 mg/dL (7-20) Creatinine 1.1 mg/dL (0.6-1.0) Estimated GFR (Cockcroft-Gault) 54.0 Glucose Level 223 mg/dL (70-99) Calcium Level 8.7 mg/dL (8.5-10.1) Total Bilirubin 0.2 mg/dL (0.2-1.0) Direct Bilirubin 0.1 mg/dL (0.0-0.2) Aspartate Amino Transf (AST/SGOT) 21 U/L (15-37) Alanine Aminotransferase (ALT/SGPT) 30 U/L (14-59) Alkaline Phosphatase 69 U/L (46-116) Troponin I Quantitative < 0.017 ng/mL (0.000-0.055) MU-Kfr-L-Type Natriuretic Peptide 29 pg/mL (0-124) Total Protein 7.4 g/dL (6.4-8.2) Albumin 3.4 g/dL (3.4-5.0) Lipase 70 U/L (73-393) Thyroid Stimulating Hormone (TSH) 1.581 uIU/mL (0.358-3.74) Bedside Urine HCG, Qualitative Hcg negative (Negative) Glucose (Fingerstick) 161 mg/dL (70-99) Test 05/26/20 17:00 05/26/20 20:00 05/26/20 21:09 05/27/20 08:22 Troponin I Quantitative < 0.017 ng/mL (0.000-0.055) < 0.017 ng/mL (0.000-0.055) Glucose (Fingerstick) 168 mg/dL (70-99) 207 mg/dL (70-99) Laboratory Tests Test 05/26/20 10:56 05/26/20 16:27 05/26/20 17:00 05/26/20 20:00 Bedside Urine HCG, Qualitative Hcg negative (Negative) Glucose (Fingerstick) 161 mg/dL (70-99) Troponin I Quantitative < 0.017 ng/mL (0.000-0.055) < 0.017 ng/mL (0.000-0.055) Test 05/26/20 21:09 05/27/20 08:22 Glucose (Fingerstick) 168 mg/dL (70-99) 207 mg/dL (70-99) Medications Current Medications Sodium Chloride 1,000 ml @ 1,000 mls/hr 1X ONCE IV Last administered on 05/26/20at 10:01; Start 05/26/20 at 09:30; Stop 05/26/20 at 10:29; Status DC Hydromorphone HCl (Dilaudid) 0.5 mg PRN Q30MIN PRN IV SEVERE PAIN 7-10 Last administered on 05/26/20at 11:26; Start 05/26/20 at 10:15 Aspirin (Aspirin Chewable) 324 mg 1X ONCE PO Last administered on 05/26/20at 10:31; Start 05/26/20 at 10:15; Stop 05/26/20 at 12:02; Status DC Iohexol (Omnipaque 300 Mg/ml) 60 ml 1X ONCE IV Last administered on 05/26/20at 10:45; Start 05/26/20 at 10:45; Stop 05/26/20 at 10:46; Status DC Info (CONTRAST GIVEN -- Rx MONITORING) 1 each PRN DAILY PRN MC SEE COMMENTS; Start 05/26/20 at 11:00; Stop 05/28/20 at 10:59 Aspirin (Aspirin Chewable) 162 mg 1X ONCE PO ; Start 05/26/20 at 12:00; Stop 05/26/20 at 12:05; Status DC Lorazepam (Ativan) 1 mg 1X ONCE PO Last administered on 05/26/20at 12:25; Start 05/26/20 at 12:15; Stop 05/26/20 at 12:16; Status DC Oxycodone/ Acetaminophen (Percocet 10/325) 1 tab PRN TID PRN PO SEVERE PRN Last administered on 05/27/20at 03:37; Start 05/26/20 at 15:00 Oxycodone/ Acetaminophen (Percocet 5/325) 1 tab PRN Q6HRS PRN PO MODERATE PAIN Last administered on 05/27/20at 08:53; Start 05/26/20 at 15:00 Sodium Chloride (Normal Saline Flush) 3 ml QSHIFT PRN IV AFTER MEDS AND BLOOD DRAWS; Start 05/26/20 at 16:00 Sodium Chloride 1,000 ml @ 100 mls/hr Q10H IV ; Start 05/26/20 at 17:00 Acetaminophen (Tylenol) 650 mg PRN Q4HRS PRN PO TEMP OVER 100.4F OR MILD PAIN; Start 05/26/20 at 16:00 Al Hydroxide/Mg Hydroxide (Mylanta Plus Xs) 30 ml PRN DAILY PRN PO HEARTBURN / GAS; Start 05/26/20 at 16:00 Sodium Monofluorophosphate (Fleet Adult) 133 ml PRN DAILY PRN HI CONSTIPATION; Start 05/26/20 at 16:00 Docusate Sodium (Colace) 100 mg PRN BID PRN PO HARD STOOLS; Start 05/26/20 at 16:00 Albuterol/ Ipratropium (Duoneb) 3 ml Q4HRS NEB ; Start 05/26/20 at 20:00; Stop 05/26/20 at 16:54; Status DC Guaifenesin (Robitussin) 200 mg PRN Q4HRS PRN PO COUGH; Start 05/26/20 at 16:00 Enoxaparin Sodium (Lovenox 40mg Syringe) 40 mg Q24H SQ Last administered on 05/26/20at 20:16; Start 05/26/20 at 21:00 Pantoprazole Sodium (Protonix) 40 mg 1X ONCE PO Last administered on 05/26/20at 17:14; Start 05/26/20 at 16:30; Stop 05/26/20 at 16:31; Status DC Pantoprazole Sodium (Protonix) 40 mg DAILYAC PO Last administered on 05/27/20at 08:52; Start 05/27/20 at 07:30 Albuterol Sulfate (Ventolin Neb Soln) 2.5 mg PRN Q4HRS PRN NEB WHEEZING; Start 05/26/20 at 20:00 Diphenhydramine HCl (Benadryl) 25 mg QHS PO Last administered on 05/26/20at 20:13; Start 05/26/20 at 21:00 Metformin HCl (Glucophage) 500 mg BIDWMEALS PO ; Start 05/26/20 at 17:00; Stop 05/26/20 at 17:06; Status DC Duloxetine HCl (Cymbalta) 90 mg DAILY PO Last administered on 05/27/20at 08:52; Start 05/27/20 at 09:00 Ibuprofen (Motrin) 800 mg DAILY PO Last administered on 05/27/20at 08:53; Start 05/27/20 at 09:00 Multivitamins (Thera M Plus) 1 tab DAILY PO Last administered on 05/27/20at 08:53; Start 05/27/20 at 09:00 Non-Formulary Medication (Omeprazole Magnesium (Prilosec Otc)) 20 mg DAILY PO ; Start 05/27/20 at 09:00; Status UNV Ondansetron HCl (Zofran Odt) 8 mg TID PO Last administered on 05/27/20at 08:53; Start 05/26/20 at 21:00 Cyclobenzaprine HCl (Flexeril) 10 mg PRN TID PRN PO MUSCLE SPASMS; Start 05/26/20 at 17:15 Trazodone HCl (Desyrel) 300 mg QHS PO Last administered on 05/26/20at 20:14; Start 05/26/20 at 21:00 Non-Formulary Medication (Vit B12/Intrins Fact/Fa Cmb #2 (Intrinsi [id number] Tablet)) 1 each DAILY PO ; Start 05/27/20 at 09:00; Status UNV Oxycodone HCl (Roxicodone) 30 mg PRN Q6HRS PRN PO IF PERCOCET INEFFECTIVE; Start 05/26/20 at 17:00 Metformin HCl (Glucophage) 500 mg BIDWMEALS PO ; Start 05/28/20 at 17:00 Active Scripts Active Orphenadrine Citrate 100 Mg Tablet.er 1 Tab PO BID PRN 10 Days Zofran Odt (Ondansetron) 8 Mg Tab.rapdis 1 Tab PO Q8HRS One every 6-8 hours as needed for nausea Reported Prilosec Otc (Omeprazole Magnesium) 20 Mg Tablet.dr 20 Mg PO DAILY Benadryl (Diphenhydramine Hcl) 25 Mg Capsule 1 Cap PO QHS 30 Days Trazodone Hcl 300 Mg Tablet 300 Mg PO HS Oxycodone Hcl Immed.release (Oxycodone Hcl) 30 Mg Tablet 30 Mg PO PRN Q4HRS PRN Intrinsi [id number] Tablet (Vit B12/Intrins Fact/Fa Cmb #2) 1 Each Tablet 1 Each PO DAILY Metformin Hcl 500 Mg Tablet 500 Mg PO BIDWMEALS Cymbalta (Duloxetine Hcl) 60 Mg Capsule.dr 90 Mg PO DAILY Once Daily (Multivitamin) 1 Each Tablet 1 Tab PO DAILY 30 Days Ibu (Ibuprofen) 800 Mg Tablet 800 Mg PO DAILY Percocet 10-325 Mg Tablet (Oxycodone/Acetaminophen) 1 Each Tablet 1 Each PO TID PRN Vitals/I & O Vital Sign - Last 24 Hours 05/26/20 05/26/20 05/26/20 05/26/20 10:21 10:32 10:51 11:02 Pulse 108 106 Resp 18 18 18 B/P (MAP) 126/71 (89) 109/72 (84) Pulse Ox 97 97 96 96 O2 Delivery Room Air Room Air Room Air Room Air 05/26/20 05/26/20 05/26/20 05/26/20 11:21 11:26 11:51 11:56 Pulse 112 102 Resp 18 18 18 18 B/P (MAP) 120/68 (85) 112/67 (82) Pulse Ox 96 98 98 97 O2 Delivery Room Air Room Air Room Air 05/26/20 05/26/20 05/26/20 05/26/20 12:21 13:21 13:51 15:10 Pulse 96 88 92 Resp 18 18 18 15 B/P (MAP) 110/61 (77) 125/63 (83) 115/60 (78) Pulse Ox 96 93 97 96 O2 Delivery Room Air Room Air Room Air Room Air 05/26/20 05/26/20 05/26/20 05/26/20 15:10 16:00 16:10 19:15 Temp 98.6 98.3 98.6 98.3 Pulse 100 97 Resp 22 16 20 B/P (MAP) 112/83 (93) 100/71 (81) Pulse Ox 94 96 96 O2 Delivery Room Air Room Air Room Air Room Air 05/26/20 05/26/20 05/26/20 05/26/20 19:35 20:14 21:14 22:45 Temp 98.3 98.3 Pulse 102 Resp 18 B/P (MAP) 118/79 (92) Pulse Ox 98 O2 Delivery Room Air Room Air Room Air Room Air 05/27/20 05/27/20 05/27/20 05/27/20 02:45 03:37 04:40 07:00 Temp 98.0 97.9 98.0 97.9 Pulse 98 97 Resp 18 18 B/P (MAP) 125/81 (96) 137/75 (95) Pulse Ox 95 95 O2 Delivery Room Air Room Air Room Air Room Air 05/27/20 05/27/20 05/27/20 08:00 08:53 09:55 Pulse Ox 95 95 O2 Delivery Room Air Room Air Room Air Intake and Output 05/26/20 05/26/20 05/27/20 15:00 23:00 07:00 Intake Total 1000 ml 240 ml 300 ml Output Total 400 ml 500 ml Balance 1000 ml -160 ml -200 ml Justicifation of Admission Dx: Justifications for Admission: Justification of Admission Dx: Yes DEVAUGHN GALARZA MD May 27, 2020 10:07
[2020-05-27 11:00] VITALS: BP 118/72
[2020-05-27 12:15] LABS: BASO % 1 % (0-3); EOS # 0.3 x10^3/uL (0.0-0.7); EOS % 3 % (0-3); HEMATOCRIT 40.3 % (36.0-47.0); HEMOGLOBIN 13.7 g/dL (12.0-15.5); LYMPH # 2.3 x10^3/uL (1.0-4.8); LYMPH % 28 % (24-48); MEAN CORPUSCULAR HEMOGLOBIN 29 pg (25-35); MEAN CORPUSCULAR HGB CONC 34 g/dL (31-37); MEAN CORPUSCULAR VOLUME 85 fL (79-100); MONO # 0.5 x10^3/uL (0.0-1.1); MONO % 6 % (0-9); NEUT # 5.2 x10^3/uL (1.8-7.7); NEUT % 63 % (31-73); PLATELET COUNT 312 x10^3/uL (140-400); RED BLOOD COUNT 4.76 x10^6/uL (3.50-5.40); RED CELL DISTRIBUTION WIDTH 14.4 % (11.5-14.5); WHITE BLOOD COUNT 8.3 x10^3/uL (4.0-11.0)
[2020-05-27 12:32] LABS: CALCIUM 8.3 mg/dL (8.5-10.1); GFR 60.2; POTASSIUM 4.6 mmol/L (3.5-5.1)
[2020-05-27 12:36] LABS: CHOLESTEROL/HDL RATIO 4.4
--- NOTE | 2020-05-27 14:00 | PDOC ---
PROGRESS NOTES Date of Service DATE: 05/27/20 TIME: 13:58 Subjective Subjective Patient seen and examined Objective Objective Vital Signs Date Time Temp Pulse Resp B/P (MAP) Pulse Ox O2 Delivery O2 Flow Rate FiO2 05/27/20 13:50 96 Room Air 05/27/20 11:00 97.9 91 18 118/72 (87) 97.9 Intake and Output 05/27/20 07:00 Intake Total 1540 ml Output Total 900 ml Balance 640 ml Intake Oral 540 ml IV Total 1000 ml Output Urine Total 900 ml Physical Exam Abdomen: Normal bowel sounds Heart: Regular rate General: No acute distress Lungs: Clear to auscultation Assessment Assessment Problems Medical Problems: (1) Chest pain Status: Acute (2) Dizziness Status: Acute (3) Speech disturbance Status: Acute (4) TIA (transient ischemic attack) Status: Acute Chest pain. Atypical. No acute EKG changes. Resolved. Ruled out. Continue medical treatment. Outpatient follow-up Possible GERD exacerbation. On PPI. Chronic NSAID use. Episodes of dizziness. Telemetry stable. Brain imaging today. Seen by clarissa villanueva. Hyperlipidemia. Statin. Diabetes mellitus. As per the primary service. Comment Review of Relevant I have reviewed the following items celia (where applicable) has been applied. Labs Laboratory Tests Test 05/26/20 09:25 05/26/20 10:05 05/26/20 10:56 05/26/20 16:27 White Blood Count 9.2 x10^3/uL (4.0-11.0) Red Blood Count 4.80 x10^6/uL (3.50-5.40) Hemoglobin 13.8 g/dL (12.0-15.5) Hematocrit 40.4 % (36.0-47.0) Mean Corpuscular Volume 84 fL (79-100) Mean Corpuscular Hemoglobin 29 pg (25-35) Mean Corpuscular Hemoglobin Concent 34 g/dL (31-37) Red Cell Distribution Width 14.6 % (11.5-14.5) Platelet Count 299 x10^3/uL (140-400) Neutrophils (%) (Auto) 67 % (31-73) Lymphocytes (%) (Auto) 23 % (24-48) Monocytes (%) (Auto) 7 % (0-9) Eosinophils (%) (Auto) 3 % (0-3) Basophils (%) (Auto) 1 % (0-3) Neutrophils # (Auto) 6.1 x10^3/uL (1.8-7.7) Lymphocytes # (Auto) 2.1 x10^3/uL (1.0-4.8) Monocytes # (Auto) 0.6 x10^3/uL (0.0-1.1) Eosinophils # (Auto) 0.3 x10^3/uL (0.0-0.7) Basophils # (Auto) 0.1 x10^3/uL (0.0-0.2) D-Dimer (Valentine) 0.32 ug/mlFEU (0.00-0.50) Hemoglobin A1c 7.2 % (4.8-5.6) Sodium Level 135 mmol/L (136-145) Potassium Level 4.4 mmol/L (3.5-5.1) Chloride Level 100 mmol/L (98-107) Carbon Dioxide Level 24 mmol/L (21-32) Anion Gap 11 (6-14) Blood Urea Nitrogen 15 mg/dL (7-20) Creatinine 1.1 mg/dL (0.6-1.0) Estimated GFR (Cockcroft-Gault) 54.0 Glucose Level 223 mg/dL (70-99) Calcium Level 8.7 mg/dL (8.5-10.1) Total Bilirubin 0.2 mg/dL (0.2-1.0) Direct Bilirubin 0.1 mg/dL (0.0-0.2) Aspartate Amino Transf (AST/SGOT) 21 U/L (15-37) Alanine Aminotransferase (ALT/SGPT) 30 U/L (14-59) Alkaline Phosphatase 69 U/L (46-116) Troponin I Quantitative < 0.017 ng/mL (0.000-0.055) DT-Mnp-H-Type Natriuretic Peptide 29 pg/mL (0-124) Total Protein 7.4 g/dL (6.4-8.2) Albumin 3.4 g/dL (3.4-5.0) Lipase 70 U/L (73-393) Thyroid Stimulating Hormone (TSH) 1.581 uIU/mL (0.358-3.74) Bedside Urine HCG, Qualitative Hcg negative (Negative) Glucose (Fingerstick) 161 mg/dL (70-99) Test 05/26/20 17:00 05/26/20 20:00 05/26/20 21:09 05/27/20 08:22 Troponin I Quantitative < 0.017 ng/mL (0.000-0.055) < 0.017 ng/mL (0.000-0.055) Glucose (Fingerstick) 168 mg/dL (70-99) 207 mg/dL (70-99) Test 05/27/20 11:30 05/27/20 11:45 05/27/20 12:12 Sodium Level 137 mmol/L (136-145) Potassium Level 4.6 mmol/L (3.5-5.1) Chloride Level 103 mmol/L (98-107) Carbon Dioxide Level 25 mmol/L (21-32) Anion Gap 9 (6-14) Blood Urea Nitrogen 10 mg/dL (7-20) Creatinine 1.0 mg/dL (0.6-1.0) Estimated GFR (Cockcroft-Gault) 60.2 Glucose Level 191 mg/dL (70-99) Calcium Level 8.3 mg/dL (8.5-10.1) Triglycerides Level 151 mg/dL (0-150) Cholesterol Level 136 mg/dL (0-200) LDL Cholesterol, Calculated 75 mg/dL (0-100) VLDL Cholesterol, Calculated 30 mg/dL (0-40) Non-HDL Cholesterol Calculated 105 mg/dL (0-129) HDL Cholesterol 31 mg/dL (40-60) Cholesterol/HDL Ratio 4.4 White Blood Count 8.3 x10^3/uL (4.0-11.0) Red Blood Count 4.76 x10^6/uL (3.50-5.40) Hemoglobin 13.7 g/dL (12.0-15.5) Hematocrit 40.3 % (36.0-47.0) Mean Corpuscular Volume 85 fL (79-100) Mean Corpuscular Hemoglobin 29 pg (25-35) Mean Corpuscular Hemoglobin Concent 34 g/dL (31-37) Red Cell Distribution Width 14.4 % (11.5-14.5) Platelet Count 312 x10^3/uL (140-400) Neutrophils (%) (Auto) 63 % (31-73) Lymphocytes (%) (Auto) 28 % (24-48) Monocytes (%) (Auto) 6 % (0-9) Eosinophils (%) (Auto) 3 % (0-3) Basophils (%) (Auto) 1 % (0-3) Neutrophils # (Auto) 5.2 x10^3/uL (1.8-7.7) Lymphocytes # (Auto) 2.3 x10^3/uL (1.0-4.8) Monocytes # (Auto) 0.5 x10^3/uL (0.0-1.1) Eosinophils # (Auto) 0.3 x10^3/uL (0.0-0.7) Basophils # (Auto) 0.0 x10^3/uL (0.0-0.2) Glucose (Fingerstick) 177 mg/dL (70-99) Laboratory Tests Test 05/26/20 16:27 05/26/20 17:00 05/26/20 20:00 05/26/20 21:09 Glucose (Fingerstick) 161 mg/dL (70-99) 168 mg/dL (70-99) Troponin I Quantitative < 0.017 ng/mL (0.000-0.055) < 0.017 ng/mL (0.000-0.055) Test 05/27/20 08:22 05/27/20 11:30 05/27/20 11:45 05/27/20 12:12 Glucose (Fingerstick) 207 mg/dL (70-99) 177 mg/dL (70-99) Sodium Level 137 mmol/L (136-145) Potassium Level 4.6 mmol/L (3.5-5.1) Chloride Level 103 mmol/L (98-107) Carbon Dioxide Level 25 mmol/L (21-32) Anion Gap 9 (6-14) Blood Urea Nitrogen 10 mg/dL (7-20) Creatinine 1.0 mg/dL (0.6-1.0) Estimated GFR (Cockcroft-Gault) 60.2 Glucose Level 191 mg/dL (70-99) Calcium Level 8.3 mg/dL (8.5-10.1) Triglycerides Level 151 mg/dL (0-150) Cholesterol Level 136 mg/dL (0-200) LDL Cholesterol, Calculated 75 mg/dL (0-100) VLDL Cholesterol, Calculated 30 mg/dL (0-40) Non-HDL Cholesterol Calculated 105 mg/dL (0-129) HDL Cholesterol 31 mg/dL (40-60) Cholesterol/HDL Ratio 4.4 White Blood Count 8.3 x10^3/uL (4.0-11.0) Red Blood Count 4.76 x10^6/uL (3.50-5.40) Hemoglobin 13.7 g/dL (12.0-15.5) Hematocrit 40.3 % (36.0-47.0) Mean Corpuscular Volume 85 fL (79-100) Mean Corpuscular Hemoglobin 29 pg (25-35) Mean Corpuscular Hemoglobin Concent 34 g/dL (31-37) Red Cell Distribution Width 14.4 % (11.5-14.5) Platelet Count 312 x10^3/uL (140-400) Neutrophils (%) (Auto) 63 % (31-73) Lymphocytes (%) (Auto) 28 % (24-48) Monocytes (%) (Auto) 6 % (0-9) Eosinophils (%) (Auto) 3 % (0-3) Basophils (%) (Auto) 1 % (0-3) Neutrophils # (Auto) 5.2 x10^3/uL (1.8-7.7) Lymphocytes # (Auto) 2.3 x10^3/uL (1.0-4.8) Monocytes # (Auto) 0.5 x10^3/uL (0.0-1.1) Eosinophils # (Auto) 0.3 x10^3/uL (0.0-0.7) Basophils # (Auto) 0.0 x10^3/uL (0.0-0.2) Medications Current Medications Sodium Chloride 1,000 ml @ 1,000 mls/hr 1X ONCE IV Last administered on 05/26/20at 10:01; Start 05/26/20 at 09:30; Stop 05/26/20 at 10:29; Status DC Hydromorphone HCl (Dilaudid) 0.5 mg PRN Q30MIN PRN IV SEVERE PAIN 7-10 Last administered on 05/26/20at 11:26; Start 05/26/20 at 10:15 Aspirin (Aspirin Chewable) 324 mg 1X ONCE PO Last administered on 05/26/20at 10:31; Start 05/26/20 at 10:15; Stop 05/26/20 at 12:02; Status DC Iohexol (Omnipaque 300 Mg/ml) 60 ml 1X ONCE IV Last administered on 05/26/20at 10:45; Start 05/26/20 at 10:45; Stop 05/26/20 at 10:46; Status DC Info (CONTRAST GIVEN -- Rx MONITORING) 1 each PRN DAILY PRN MC SEE COMMENTS; Start 05/26/20 at 11:00; Stop 05/28/20 at 10:59 Aspirin (Aspirin Chewable) 162 mg 1X ONCE PO ; Start 05/26/20 at 12:00; Stop 05/26/20 at 12:05; Status DC Lorazepam (Ativan) 1 mg 1X ONCE PO Last administered on 05/26/20at 12:25; Start 05/26/20 at 12:15; Stop 05/26/20 at 12:16; Status DC Oxycodone/ Acetaminophen (Percocet 10/325) 1 tab PRN TID PRN PO SEVERE PRN Last administered on 05/27/20at 13:50; Start 05/26/20 at 15:00 Oxycodone/ Acetaminophen (Percocet 5/325) 1 tab PRN Q6HRS PRN PO MODERATE PAIN Last administered on 05/27/20at 08:53; Start 05/26/20 at 15:00 Sodium Chloride (Normal Saline Flush) 3 ml QSHIFT PRN IV AFTER MEDS AND BLOOD DRAWS; Start 05/26/20 at 16:00 Sodium Chloride 1,000 ml @ 100 mls/hr Q10H IV ; Start 05/26/20 at 17:00 Acetaminophen (Tylenol) 650 mg PRN Q4HRS PRN PO TEMP OVER 100.4F OR MILD PAIN; Start 05/26/20 at 16:00 Al Hydroxide/Mg Hydroxide (Mylanta Plus Xs) 30 ml PRN DAILY PRN PO HEARTBURN / GAS; Start 05/26/20 at 16:00 Sodium Monofluorophosphate (Fleet Adult) 133 ml PRN DAILY PRN NV CONSTIPATION; Start 05/26/20 at 16:00 Docusate Sodium (Colace) 100 mg PRN BID PRN PO HARD STOOLS; Start 05/26/20 at 16:00 Albuterol/ Ipratropium (Duoneb) 3 ml Q4HRS NEB ; Start 05/26/20 at 20:00; Stop 05/26/20 at 16:54; Status DC Guaifenesin (Robitussin) 200 mg PRN Q4HRS PRN PO COUGH; Start 05/26/20 at 16:00 Enoxaparin Sodium (Lovenox 40mg Syringe) 40 mg Q24H SQ Last administered on 05/26/20at 20:16; Start 05/26/20 at 21:00 Pantoprazole Sodium (Protonix) 40 mg 1X ONCE PO Last administered on 05/26/20at 17:14; Start 05/26/20 at 16:30; Stop 05/26/20 at 16:31; Status DC Pantoprazole Sodium (Protonix) 40 mg DAILYAC PO Last administered on 05/27/20at 08:52; Start 05/27/20 at 07:30 Albuterol Sulfate (Ventolin Neb Soln) 2.5 mg PRN Q4HRS PRN NEB WHEEZING; Start 05/26/20 at 20:00 Diphenhydramine HCl (Benadryl) 25 mg QHS PO Last administered on 05/26/20at 20:13; Start 05/26/20 at 21:00 Metformin HCl (Glucophage) 500 mg BIDWMEALS PO ; Start 05/26/20 at 17:00; Stop 05/26/20 at 17:06; Status DC Duloxetine HCl (Cymbalta) 90 mg DAILY PO Last administered on 05/27/20at 08:52; Start 05/27/20 at 09:00 Ibuprofen (Motrin) 800 mg DAILY PO Last administered on 05/27/20at 08:53; Start 05/27/20 at 09:00 Multivitamins (Thera M Plus) 1 tab DAILY PO Last administered on 05/27/20at 08:53; Start 05/27/20 at 09:00 Non-Formulary Medication (Omeprazole Magnesium (Prilosec Otc)) 20 mg DAILY PO ; Start 05/27/20 at 09:00; Status UNV Ondansetron HCl (Zofran Odt) 8 mg TID PO Last administered on 05/27/20at 13:50; Start 05/26/20 at 21:00 Cyclobenzaprine HCl (Flexeril) 10 mg PRN TID PRN PO MUSCLE SPASMS; Start 05/26/20 at 17:15 Trazodone HCl (Desyrel) 300 mg QHS PO Last administered on 05/26/20at 20:14; Start 05/26/20 at 21:00 Non-Formulary Medication (Vit B12/Intrins Fact/Fa Cmb #2 (Intrinsi [id number] Tablet)) 1 each DAILY PO ; Start 05/27/20 at 09:00; Status UNV Oxycodone HCl (Roxicodone) 30 mg PRN Q6HRS PRN PO IF PERCOCET INEFFECTIVE; Start 05/26/20 at 17:00 Metformin HCl (Glucophage) 500 mg BIDWMEALS PO ; Start 05/28/20 at 17:00 Active Scripts Active Orphenadrine Citrate 100 Mg Tablet.er 1 Tab PO BID PRN 10 Days Zofran Odt (Ondansetron) 8 Mg Tab.rapdis 1 Tab PO Q8HRS One every 6-8 hours as needed for nausea Reported Prilosec Otc (Omeprazole Magnesium) 20 Mg Tablet.dr 20 Mg PO DAILY Benadryl (Diphenhydramine Hcl) 25 Mg Capsule 1 Cap PO QHS 30 Days Trazodone Hcl 300 Mg Tablet 300 Mg PO HS Oxycodone Hcl Immed.release (Oxycodone Hcl) 30 Mg Tablet 30 Mg PO PRN Q4HRS PRN Intrinsi [id number] Tablet (Vit B12/Intrins Fact/Fa Cmb #2) 1 Each Tablet 1 Each PO DAILY Metformin Hcl 500 Mg Tablet 500 Mg PO BIDWMEALS Cymbalta (Duloxetine Hcl) 60 Mg Capsule.dr 90 Mg PO DAILY Once Daily (Multivitamin) 1 Each Tablet 1 Tab PO DAILY 30 Days Ibu (Ibuprofen) 800 Mg Tablet 800 Mg PO DAILY Percocet 10-325 Mg Tablet (Oxycodone/Acetaminophen) 1 Each Tablet 1 Each PO TID PRN Vitals/I & O Vital Sign - Last 24 Hours 05/26/20 05/26/20 05/26/20 05/26/20 15:10 15:10 16:00 16:10 Temp 98.6 98.6 Pulse 100 Resp 15 22 16 B/P (MAP) 112/83 (93) Pulse Ox 96 94 96 O2 Delivery Room Air Room Air Room Air Room Air 05/26/20 05/26/20 05/26/20 05/26/20 19:15 19:35 20:14 21:14 Temp 98.3 98.3 Pulse 97 Resp 20 B/P (MAP) 100/71 (81) Pulse Ox 96 O2 Delivery Room Air Room Air Room Air Room Air 05/26/20 05/27/20 05/27/20 05/27/20 22:45 02:45 03:37 04:40 Temp 98.3 98.0 98.3 98.0 Pulse 102 98 Resp 18 18 B/P (MAP) 118/79 (92) 125/81 (96) Pulse Ox 98 95 O2 Delivery Room Air Room Air Room Air Room Air 05/27/20 05/27/20 05/27/20 05/27/20 07:00 08:00 08:53 09:55 Temp 97.9 97.9 Pulse 97 Resp 18 B/P (MAP) 137/75 (95) Pulse Ox 95 95 95 O2 Delivery Room Air Room Air Room Air Room Air 05/27/20 05/27/20 11:00 13:50 Temp 97.9 97.9 Pulse 91 Resp 18 B/P (MAP) 118/72 (87) Pulse Ox 96 96 O2 Delivery Room Air Room Air Intake and Output 05/26/20 05/26/20 05/27/20 15:00 23:00 07:00 Intake Total 1000 ml 240 ml 300 ml Output Total 400 ml 500 ml Balance 1000 ml -160 ml -200 ml Justifications for Admission Other Justification OPAL BARRY MD May 27, 2020 14:00
--- NOTE | 2020-05-27 15:09 | PDOC3 ---
Discharge Summary Date of Admission: May 26, 2020 Date of Discharge: May 27, 2020 Follow-Up: 3-5 days Admitting Diagnosis comment: DISCHARGE DX Assessment/Plan Impression: Chest pain GERD Morbid obesity Dizziness Speech disturbance, RESOLVED TIA (transient ischemic attack) VS ANXIETY ATTACK No intracranial hemorrhage or loss of fleming-white differentiation. Stable ventriculomegaly. cta of head 05/26 ADMITTED CARDIOLOGY CONSULT OK WITH D/C NEUROLOGY CONSULT OK WITH D/C serial troponin i dvt prophylaxis protonix 40 mg po daily neurochecks q 4 hrs 34 min pt exam, chart review D/C PLANNING , > 50% of time spent with exam, chart review, pt care coordination DPOA IS History of Present Illness History of Present Illness Identification/Chief Complaint Chief Complaint SEEN IN ER WITH with chest pain and speech disturbance with dizziness. She woke up with a pressure in her chest that did not get better with her anxiety medications. //had dizziness when she was walking and had trouble with her speech. Her last known well was last night around 1 AM. She denies a history of stroke. She has a history of diabetes. She denies any diplopia or numbness or weakness of her arms or legs. Her dizziness has resolved now and she reports normal speech on arrival to the emergency department. SEEN WITH IN ROOM Review of systems negative for headache neck pain nuchal rigidity abdominal pain vomiting fevers or rashes. 14 PT review of systems OTHERWISE negative. 44-year-old femalewith chest pain speech disturbance and dizziness last known well was 1 AM. // is outside of TPA window. Past Medical History Past Medical History Past Medical History Past Medical History Past Medical History: Anxiety, Depression, Diabetes-Type II, Hypothyroid, Other Additional Past Medical Histor: back pain, DDD Past Surgical History: Cholecystectomy, Other Additional Past Surgical Histo: LEEP procedure for HPV Smoking Status: Never Smoker Alcohol Use: Occasionally Drug Use: None fhx obesity Cardiovascular: HTN Psych: Depression, Panic Musculoskeletal: low back pain Vitals Vitals Vital Signs Date Time Temp Pulse Resp B/P (MAP) Pulse Ox O2 Delivery O2 Flow Rate FiO2 05/27/20 09:55 95 Room Air 05/27/20 07:00 97.9 97 18 137/75 (95) 97.9 Physical Exam General: Alert, Oriented X3, Cooperative, No acute distress Heart: Regular rate (SR), Normal S1, Normal S2, No murmurs Abdomen: Soft, No tenderness, Other (obese) Extremities: No cyanosis, No edema Skin: No breakdown, No significant lesion FINAL DIAGNOSIS Problems Medical Problems: (1) Chest pain Status: Acute (2) Dizziness Status: Acute (3) Speech disturbance Status: Acute (4) TIA (transient ischemic attack) Status: Acute Brief Hospital Course Ms. Bravo is a 44 old [sex] who presented with [ SLURRED SPEECH, DIZZINESS, ANXIETY] CONDITION AT DISCHARGE: Improved Discharge Medications Current Medications Sodium Chloride 1,000 ml @ 1,000 mls/hr 1X ONCE IV Last administered on 05/26/20at 10:01; Start 05/26/20 at 09:30; Stop 05/26/20 at 10:29; Status DC Hydromorphone HCl (Dilaudid) 0.5 mg PRN Q30MIN PRN IV SEVERE PAIN 7-10 Last administered on 05/26/20at 11:26; Start 05/26/20 at 10:15 Aspirin (Aspirin Chewable) 324 mg 1X ONCE PO Last administered on 05/26/20at 10:31; Start 05/26/20 at 10:15; Stop 05/26/20 at 12:02; Status DC Iohexol (Omnipaque 300 Mg/ml) 60 ml 1X ONCE IV Last administered on 05/26/20at 10:45; Start 05/26/20 at 10:45; Stop 05/26/20 at 10:46; Status DC Info (CONTRAST GIVEN -- Rx MONITORING) 1 each PRN DAILY PRN MC SEE COMMENTS; Start 05/26/20 at 11:00; Stop 05/28/20 at 10:59 Aspirin (Aspirin Chewable) 162 mg 1X ONCE PO ; Start 05/26/20 at 12:00; Stop 05/26/20 at 12:05; Status DC Lorazepam (Ativan) 1 mg 1X ONCE PO Last administered on 05/26/20at 12:25; Start 05/26/20 at 12:15; Stop 05/26/20 at 12:16; Status DC Oxycodone/ Acetaminophen (Percocet 10/325) 1 tab PRN TID PRN PO SEVERE PRN Last administered on 05/27/20at 13:50; Start 05/26/20 at 15:00 Oxycodone/ Acetaminophen (Percocet 5/325) 1 tab PRN Q6HRS PRN PO MODERATE PAIN Last administered on 05/27/20at 08:53; Start 05/26/20 at 15:00 Sodium Chloride (Normal Saline Flush) 3 ml QSHIFT PRN IV AFTER MEDS AND BLOOD DRAWS; Start 05/26/20 at 16:00 Sodium Chloride 1,000 ml @ 100 mls/hr Q10H IV ; Start 05/26/20 at 17:00 Acetaminophen (Tylenol) 650 mg PRN Q4HRS PRN PO TEMP OVER 100.4F OR MILD PAIN; Start 05/26/20 at 16:00 Al Hydroxide/Mg Hydroxide (Mylanta Plus Xs) 30 ml PRN DAILY PRN PO HEARTBURN / GAS; Start 05/26/20 at 16:00 Sodium Monofluorophosphate (Fleet Adult) 133 ml PRN DAILY PRN NC CONSTIPATION; Start 05/26/20 at 16:00 Docusate Sodium (Colace) 100 mg PRN BID PRN PO HARD STOOLS; Start 05/26/20 at 16:00 Albuterol/ Ipratropium (Duoneb) 3 ml Q4HRS NEB ; Start 05/26/20 at 20:00; Stop 05/26/20 at 16:54; Status DC Guaifenesin (Robitussin) 200 mg PRN Q4HRS PRN PO COUGH; Start 05/26/20 at 16:00 Enoxaparin Sodium (Lovenox 40mg Syringe) 40 mg Q24H SQ Last administered on 05/26/20at 20:16; Start 05/26/20 at 21:00 Pantoprazole Sodium (Protonix) 40 mg 1X ONCE PO Last administered on 05/26/20at 17:14; Start 05/26/20 at 16:30; Stop 05/26/20 at 16:31; Status DC Pantoprazole Sodium (Protonix) 40 mg DAILYAC PO Last administered on 05/27/20at 08:52; Start 05/27/20 at 07:30 Albuterol Sulfate (Ventolin Neb Soln) 2.5 mg PRN Q4HRS PRN NEB WHEEZING; Start 05/26/20 at 20:00 Diphenhydramine HCl (Benadryl) 25 mg QHS PO Last administered on 05/26/20at 20:13; Start 05/26/20 at 21:00 Metformin HCl (Glucophage) 500 mg BIDWMEALS PO ; Start 05/26/20 at 17:00; Stop 05/26/20 at 17:06; Status DC Duloxetine HCl (Cymbalta) 90 mg DAILY PO Last administered on 05/27/20at 08:52; Start 05/27/20 at 09:00 Ibuprofen (Motrin) 800 mg DAILY PO Last administered on 05/27/20at 08:53; Start 05/27/20 at 09:00 Multivitamins (Thera M Plus) 1 tab DAILY PO Last administered on 05/27/20at 08:53; Start 05/27/20 at 09:00 Non-Formulary Medication (Omeprazole Magnesium (Prilosec Otc)) 20 mg DAILY PO ; Start 05/27/20 at 09:00; Status UNV Ondansetron HCl (Zofran Odt) 8 mg TID PO Last administered on 05/27/20at 13:50; Start 05/26/20 at 21:00 Cyclobenzaprine HCl (Flexeril) 10 mg PRN TID PRN PO MUSCLE SPASMS; Start 05/26/20 at 17:15 Trazodone HCl (Desyrel) 300 mg QHS PO Last administered on 05/26/20at 20:14; Start 05/26/20 at 21:00 Non-Formulary Medication (Vit B12/Intrins Fact/Fa Cmb #2 (Intrinsi B94-Qccymc Tablet)) 1 each DAILY PO ; Start 05/27/20 at 09:00; Status UNV Oxycodone HCl (Roxicodone) 30 mg PRN Q6HRS PRN PO IF PERCOCET INEFFECTIVE; Start 05/26/20 at 17:00 Metformin HCl (Glucophage) 500 mg BIDWMEALS PO ; Start 05/28/20 at 17:00 Active Scripts Active Orphenadrine Citrate 100 Mg Tablet.er 1 Tab PO BID PRN 10 Days Zofran Odt (Ondansetron) 8 Mg Tab.rapdis 1 Tab PO Q8HRS One every 6-8 hours as needed for nausea Reported Prilosec Otc (Omeprazole Magnesium) 20 Mg Tablet.dr 20 Mg PO DAILY Benadryl (Diphenhydramine Hcl) 25 Mg Capsule 1 Cap PO QHS 30 Days Trazodone Hcl 300 Mg Tablet 300 Mg PO HS Oxycodone Hcl Immed.release (Oxycodone Hcl) 30 Mg Tablet 30 Mg PO PRN Q4HRS PRN Intrinsi S69-Tdxlfs Tablet (Vit B12/Intrins Fact/Fa Cmb #2) 1 Each Tablet 1 Each PO DAILY Metformin Hcl 500 Mg Tablet 500 Mg PO BIDWMEALS Cymbalta (Duloxetine Hcl) 60 Mg Capsule.dr 90 Mg PO DAILY Once Daily (Multivitamin) 1 Each Tablet 1 Tab PO DAILY 30 Days Ibu (Ibuprofen) 800 Mg Tablet 800 Mg PO DAILY Percocet 10-325 Mg Tablet (Oxycodone/Acetaminophen) 1 Each Tablet 1 Each PO TID PRN Vital Signs Vital Signs Date Time Temp Pulse Resp B/P (MAP) Pulse Ox O2 Delivery O2 Flow Rate FiO2 05/27/20 14:50 16 96 Room Air 05/27/20 11:00 97.9 91 118/72 (87) 97.9 Labs Laboratory Tests Test 05/26/20 09:25 05/26/20 10:05 05/26/20 10:56 05/26/20 16:27 White Blood Count 9.2 x10^3/uL (4.0-11.0) Red Blood Count 4.80 x10^6/uL (3.50-5.40) Hemoglobin 13.8 g/dL (12.0-15.5) Hematocrit 40.4 % (36.0-47.0) Mean Corpuscular Volume 84 fL (79-100) Mean Corpuscular Hemoglobin 29 pg (25-35) Mean Corpuscular Hemoglobin Concent 34 g/dL (31-37) Red Cell Distribution Width 14.6 % (11.5-14.5) Platelet Count 299 x10^3/uL (140-400) Neutrophils (%) (Auto) 67 % (31-73) Lymphocytes (%) (Auto) 23 % (24-48) Monocytes (%) (Auto) 7 % (0-9) Eosinophils (%) (Auto) 3 % (0-3) Basophils (%) (Auto) 1 % (0-3) Neutrophils # (Auto) 6.1 x10^3/uL (1.8-7.7) Lymphocytes # (Auto) 2.1 x10^3/uL (1.0-4.8) Monocytes # (Auto) 0.6 x10^3/uL (0.0-1.1) Eosinophils # (Auto) 0.3 x10^3/uL (0.0-0.7) Basophils # (Auto) 0.1 x10^3/uL (0.0-0.2) D-Dimer (Valentine) 0.32 ug/mlFEU (0.00-0.50) Hemoglobin A1c 7.2 % (4.8-5.6) Sodium Level 135 mmol/L (136-145) Potassium Level 4.4 mmol/L (3.5-5.1) Chloride Level 100 mmol/L (98-107) Carbon Dioxide Level 24 mmol/L (21-32) Anion Gap 11 (6-14) Blood Urea Nitrogen 15 mg/dL (7-20) Creatinine 1.1 mg/dL (0.6-1.0) Estimated GFR (Cockcroft-Gault) 54.0 Glucose Level 223 mg/dL (70-99) Calcium Level 8.7 mg/dL (8.5-10.1) Total Bilirubin 0.2 mg/dL (0.2-1.0) Direct Bilirubin 0.1 mg/dL (0.0-0.2) Aspartate Amino Transf (AST/SGOT) 21 U/L (15-37) Alanine Aminotransferase (ALT/SGPT) 30 U/L (14-59) Alkaline Phosphatase 69 U/L (46-116) Troponin I Quantitative < 0.017 ng/mL (0.000-0.055) XO-Fop-W-Type Natriuretic Peptide 29 pg/mL (0-124) Total Protein 7.4 g/dL (6.4-8.2) Albumin 3.4 g/dL (3.4-5.0) Lipase 70 U/L (73-393) Thyroid Stimulating Hormone (TSH) 1.581 uIU/mL (0.358-3.74) Bedside Urine HCG, Qualitative Hcg negative (Negative) Glucose (Fingerstick) 161 mg/dL (70-99) Test 05/26/20 17:00 05/26/20 20:00 05/26/20 21:09 05/27/20 08:22 Troponin I Quantitative < 0.017 ng/mL (0.000-0.055) < 0.017 ng/mL (0.000-0.055) Glucose (Fingerstick) 168 mg/dL (70-99) 207 mg/dL (70-99) Test 05/27/20 11:30 05/27/20 11:45 05/27/20 12:12 Sodium Level 137 mmol/L (136-145) Potassium Level 4.6 mmol/L (3.5-5.1) Chloride Level 103 mmol/L (98-107) Carbon Dioxide Level 25 mmol/L (21-32) Anion Gap 9 (6-14) Blood Urea Nitrogen 10 mg/dL (7-20) Creatinine 1.0 mg/dL (0.6-1.0) Estimated GFR (Cockcroft-Gault) 60.2 Glucose Level 191 mg/dL (70-99) Calcium Level 8.3 mg/dL (8.5-10.1) Triglycerides Level 151 mg/dL (0-150) Cholesterol Level 136 mg/dL (0-200) LDL Cholesterol, Calculated 75 mg/dL (0-100) VLDL Cholesterol, Calculated 30 mg/dL (0-40) Non-HDL Cholesterol Calculated 105 mg/dL (0-129) HDL Cholesterol 31 mg/dL (40-60) Cholesterol/HDL Ratio 4.4 White Blood Count 8.3 x10^3/uL (4.0-11.0) Red Blood Count 4.76 x10^6/uL (3.50-5.40) Hemoglobin 13.7 g/dL (12.0-15.5) Hematocrit 40.3 % (36.0-47.0) Mean Corpuscular Volume 85 fL (79-100) Mean Corpuscular Hemoglobin 29 pg (25-35) Mean Corpuscular Hemoglobin Concent 34 g/dL (31-37) Red Cell Distribution Width 14.4 % (11.5-14.5) Platelet Count 312 x10^3/uL (140-400) Neutrophils (%) (Auto) 63 % (31-73) Lymphocytes (%) (Auto) 28 % (24-48) Monocytes (%) (Auto) 6 % (0-9) Eosinophils (%) (Auto) 3 % (0-3) Basophils (%) (Auto) 1 % (0-3) Neutrophils # (Auto) 5.2 x10^3/uL (1.8-7.7) Lymphocytes # (Auto) 2.3 x10^3/uL (1.0-4.8) Monocytes # (Auto) 0.5 x10^3/uL (0.0-1.1) Eosinophils # (Auto) 0.3 x10^3/uL (0.0-0.7) Basophils # (Auto) 0.0 x10^3/uL (0.0-0.2) Glucose (Fingerstick) 177 mg/dL (70-99) Laboratory Tests Test 05/26/20 16:27 05/26/20 17:00 05/26/20 20:00 05/26/20 21:09 Glucose (Fingerstick) 161 mg/dL (70-99) 168 mg/dL (70-99) Troponin I Quantitative < 0.017 ng/mL (0.000-0.055) < 0.017 ng/mL (0.000-0.055) Test 05/27/20 08:22 05/27/20 11:30 05/27/20 11:45 05/27/20 12:12 Glucose (Fingerstick) 207 mg/dL (70-99) 177 mg/dL (70-99) Sodium Level 137 mmol/L (136-145) Potassium Level 4.6 mmol/L (3.5-5.1) Chloride Level 103 mmol/L (98-107) Carbon Dioxide Level 25 mmol/L (21-32) Anion Gap 9 (6-14) Blood Urea Nitrogen 10 mg/dL (7-20) Creatinine 1.0 mg/dL (0.6-1.0) Estimated GFR (Cockcroft-Gault) 60.2 Glucose Level 191 mg/dL (70-99) Calcium Level 8.3 mg/dL (8.5-10.1) Triglycerides Level 151 mg/dL (0-150) Cholesterol Level 136 mg/dL (0-200) LDL Cholesterol, Calculated 75 mg/dL (0-100) VLDL Cholesterol, Calculated 30 mg/dL (0-40) Non-HDL Cholesterol Calculated 105 mg/dL (0-129) HDL Cholesterol 31 mg/dL (40-60) Cholesterol/HDL Ratio 4.4 White Blood Count 8.3 x10^3/uL (4.0-11.0) Red Blood Count 4.76 x10^6/uL (3.50-5.40) Hemoglobin 13.7 g/dL (12.0-15.5) Hematocrit 40.3 % (36.0-47.0) Mean Corpuscular Volume 85 fL (79-100) Mean Corpuscular Hemoglobin 29 pg (25-35) Mean Corpuscular Hemoglobin Concent 34 g/dL (31-37) Red Cell Distribution Width 14.4 % (11.5-14.5) Platelet Count 312 x10^3/uL (140-400) Neutrophils (%) (Auto) 63 % (31-73) Lymphocytes (%) (Auto) 28 % (24-48) Monocytes (%) (Auto) 6 % (0-9) Eosinophils (%) (Auto) 3 % (0-3) Basophils (%) (Auto) 1 % (0-3) Neutrophils # (Auto) 5.2 x10^3/uL (1.8-7.7) Lymphocytes # (Auto) 2.3 x10^3/uL (1.0-4.8) Monocytes # (Auto) 0.5 x10^3/uL (0.0-1.1) Eosinophils # (Auto) 0.3 x10^3/uL (0.0-0.7) Basophils # (Auto) 0.0 x10^3/uL (0.0-0.2) Allergies Allergies Coded Allergies Type Severity Reaction Last Updated Verified venlafaxine Allergy Intermediate 05/27/20 Yes tizanidine Allergy Mild HALLUCINATIONS 05/26/20 Yes Disposition/Orders: D/C to Home Justicifation of Admission Dx: Justifications for Admission: Justification of Admission Dx: Yes DEVAUGHN GALARZA MD May 27, 2020 15:09
[2020-05-27] MEDS ORDERED: ALBU2.5V8 NEB (15:11)
[2020-05-27] MEDS ORDERED: ACET325T9 PO (15:11)
[2020-05-27] MEDS ORDERED: MAG30ORA2 PO (15:11)
--- NOTE | 2020-05-27 15:12 | DISCH ---
DISCHARGE INSTRUCTIONS Condition on Discharge Condition on Discharge: Stable Activity After Discharge Activity Instructions for Disc: No restrictions Driving Instructions after Dis: Do not drive Diet after Discharge Diet after Discharge: Diabetic No Calorie Level Wound Incision Care Wound/Incision Care: No wound care needed Checks after Discharge Checks after discharge: Check blood press - daily, Check blood sugar, ac/hs, Check your Temp as needed Contacting the [facility] after DC Call your doctor for: If your condition worsens Follow-Up Follow Up With: Primary care provider in 2 weeks Treatment/Equipment after DC Adaptive Equipment Issued: None Warfarin Follow-Up Warfarin Follow UP: SEE PCP THIS WEEK DEVAUGHN GALARZA MD May 27, 2020 15:12
--- NOTE | 2020-05-27 15:30 | NUR ---
Discharge Note: [facility] Discharge instructions and discharge home medications reviewed with Patient and a copy given. All questions have been answered and understanding verbalized. The following instructions and handouts were given: Albuterol, Mylanta XS, Tylenol Patient discharged to home with spouse via ambulatory.
[2020-05-28] MEDS ORDERED: metFORMIN 500 MG TABLET PO SCH (17:00)
== END 2020-05-27 15:35 | disposition home or self-care (01) | DRG 69 ==
LOC: ER 09:14 → ED HOLD 12:59 → 2 SOUTH 13:52
PROVIDERS: ADMIT Family Medicine; ATTEND Family Medicine
DX: G45.9 Transient cerebral ischemic attack, unspecified (principal); Z68.41 Body mass index [BMI] 40.0-44.9, adult; R07.89 Other chest pain; E06.3 Autoimmune thyroiditis; E11.9 Type 2 diabetes mellitus without complications; E66.01 Morbid (severe) obesity due to excess calories; E78.5 Hyperlipidemia, unspecified; F17.210 Nicotine dependence, cigarettes, uncomplicated; F40.10 Social phobia, unspecified; F32.9 Major depressive disorder, single episode, unspecified; G93.89 Other specified disorders of brain; I10 Essential (primary) hypertension; I25.10 Atherosclerotic heart disease of native coronary artery without angina pectoris; K21.9 Gastro-esophageal reflux disease without esophagitis; Z79.1 Long term (current) use of non-steroidal anti-inflammatories (NSAID); Z79.899 Other long term (current) drug therapy; Z82.49 Family history of ischemic heart disease and other diseases of the circulatory system; Z86.73 Personal history of transient ischemic attack (TIA), and cerebral infarction without residual deficits
CPT/HCPCS: 36415; 70450; 70496; 70498; 70551; 71045; 80048; 80061; 80076; 81025; 82962; 83036; 83690; 83880; 84443; 84484; 85025; 85379; 93005; 96361; 96374; 96376; 99285; J1170; J1650; J7030; Q9967; 92610-GN; G0378; Q0163

== ENCOUNTER 2020-06-28 14:46 | Emergency (ER) | payer OTHER ==
[~2020-06-28] VITALS: Ht 170.2 cm; Wt 104.0 kg
[~2020-06-28 14:46] MED LIST changes: +ACET325T9 PO; +ALBU2.5V8 NEB; +DIPH25CA58 PO; +DULO60CA6 PO; +IBUP-577 PO; +MAG30ORA2 PO; +METF500T16 PO; +MULT-505 PO; +OMEP20TA63 PO; +OXYC30TA3 PO; +TRAZ300T2 PO; +VIT1TABL62 PO
[2020-06-28 14:50] VITALS: BP 150/90
[2020-06-28] MEDS ORDERED: ORPHENADRINE CITRATE 60 MG/2 ML VIAL. IM ONE (15:45)
[2020-06-28] MEDS ORDERED: MORPHINE SULFATE 4 MG/ML VIAL. IM ONE (15:45)
[2020-06-28 16:50] LABS: BILIRUBIN,URINE NEGATIVE (NEG); CLARITY,URINE CLEAR; COLOR,URINE YELLOW; NITRITE,URINE NEGATIVE (NEG); PH,URINE 5.5 (<5.0-8.0); PROTEIN,URINE NEGATIVE (NEG-TRACE); UROBILINOGEN,URINE 0.2 mg/dL (0.2 mg/dL)
[2020-06-28 17:03] LABS: BACTERIA,URINE MANY /HPF (0-FEW); SQUAMOUS EPITHELIAL CELL,UR MANY /LPF
[2020-06-28 17:05] LABS: RBC,URINE OCC /HPF (0-2)
[2020-06-28] MEDS ORDERED: OXYC-317 PO (17:06)
--- NOTE | 2020-06-28 17:08 | PHYS DOC ---
Past Medical History Past Medical History: Anxiety, Depression, Diabetes-Type II, Hypothyroid, Other Additional Past Medical Histor: back pain, DDD, obesity Past Surgical History: Cholecystectomy, Other Additional Past Surgical Histo: LEEP procedure for HPV Smoking Status: Never Smoker Alcohol Use: Occasionally Drug Use: None General Adult EDM: Chief Complaint: BACK PAIN OR INJURY HPI: HPI: Patient is a 44 year old female who presents to the emergency department with complaints of increased low back pain. Patient reports a history of degenerative disc disease and chronic back pain. She reports she has been taking her oxycodone 5/325 mg tablets at home with no relief of her pain. She denies any saddle anesthesia, or loss of bowel/bladder control. She denies any recent fever, dysuria, increased urinary frequency, hematuria, abdominal pain, numbness, tingling, or weakness. Patient reports that she has had some recent nausea, vomiting, and diarrhea but states that is not why she came to the emergency department. She currently rates her pain a 10 out of 10 on the pain scale, she denies any radiation of the pain, she denies any alleviating factors, the pain is worse with movement. The patient reports that she has an appointment with her pain management doctor in 1 week. Review of Systems: Review of Systems: Constitutional: Denies fever or chills. [] HENT: Denies nasal congestion or sore throat. [] Respiratory: Denies cough or shortness of breath. [] Cardiovascular: Denies chest pain or edema. [] GI: Denies abdominal pain; see HPI : Denies dysuria. [] Musculoskeletal: See HPI Integument: Denies rash. [] Neurologic: Denies headache, focal weakness or sensory changes. [] Psychiatric: Denies depression or anxiety. [] Heart Score: Risk Factors: Risk Factors: DM, Current or recent (<one month) smoker, HTN, HLP, family history of CAD, obesity. Risk Scores: Score 0 - 3: 2.5% MACE over next 6 weeks - Discharge Home Score 4 - 6: 20.3% MACE over next 6 weeks - Admit for Clinical Observation Score 7 - 10: 72.7% MACE over next 6 weeks - Early Invasive Strategies Current Medications: Current Medications Medications (Trade) Dose Ordered Sig/[facility] Start Time Stop Time Status Last Admin Dose Admin Morphine Sulfate (Morphine Sulfate) 6 mg 1X ONCE 06/28/20 15:45 06/28/20 15:46 DC 06/28/20 15:59 6 MG Orphenadrine Citrate (Norflex) 60 mg 1X ONCE 06/28/20 15:45 06/28/20 15:46 DC 06/28/20 16:00 60 MG Allergies: Allergies: Allergies Coded Allergies Type Severity Reaction Last Updated Verified venlafaxine Allergy Intermediate 05/27/20 Yes tizanidine Allergy Mild HALLUCINATIONS 05/26/20 Yes Physical Exam: PE: Constitutional: Well developed, well nourished, no acute distress, non-toxic appearance, obese [] HENT: Normocephalic, atraumatic, bilateral external ears normal, nose normal. [] Eyes: PERRLA, EOMI, conjunctiva normal, no discharge. [] Neck: Normal range of motion, no stridor. [] Cardiovascular:Heart rate regular rhythm Lungs & Thorax: Respirations even and unlabored, no retractions, no respiratory distress Back: No bony tenderness or deformity Skin: Warm, dry, no erythema, no rash. [] Extremities: No cyanosis, ROM intact, no edema. [] Neurologic: Alert and oriented X 3, no focal deficits noted. [] Psychologic: Affect normal, judgement normal, mood normal. [] Current Patient Data: Labs: Laboratory Tests Test 06/28/20 16:49 POC Urine HCG, Qualitative Hcg negative (Negative) Vital Signs: Vital Signs Date Time Temp Pulse Resp B/P (MAP) Pulse Ox O2 Delivery O2 Flow Rate FiO2 06/28/20 15:59 16 96 Room Air 06/28/20 14:50 97.0 104 150/90 (110) 97.0 EKG: EKG: [] Radiology/Procedures: Radiology/Procedures: [] Course & Med Decision Making: Course & Med Decision Making Pertinent Labs and Imaging studies reviewed. (See chart for details) 44-year-old female presents to the emergency department with complaints of an exacerbation of her chronic back pain. Patient was given 6 mg of IM morphine and 60 mg of IM Norflex. She reported feeling better after these medications I agreed to prescribe the patient 4 tablets of oxycodone 10/325 mg for her to take for severe pain. Urinalysis was likely contaminated as patient is asymptomatic. 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 Return to the ER symptoms worsen. Patient verbalized an understanding of home care, medications, follow-up, and return to ED instructions and was in agreement with the plan of care. [] Darlene Disclaimer: Darelne Disclaimer: This electronic medical record was generated, in whole or in part, using a voice recognition dictation system. Departure Departure Impression: Primary Impression: Chronic back pain Qualified Codes: M54.9 - Dorsalgia, unspecified; G89.29 - Other chronic pain Disposition: HOME, SELF-CARE Condition: STABLE Referrals: ALEXIS GREENE MD (PCP) Patient Instructions: Chronic Back Pain Additional Instructions: Fill the prescription and take as directed for severe pain only. Follow-up with your auto painter next week as planned. Return to the ER if symptoms worsen Scripts Oxycodone Hcl/Acetaminophen (ENDOCET 10-325 MG TABLET) 1 Each Tablet 1 TAB PO QIDPRN PRN for SEVERE PAIN 7-10 MDD 4 Tablet(s) for 5 Days, #4 TAB 0 Refills Prov: SUGAR PERERA APRN 06/28/20 Justicifation of Admission Dx: Justifications for Admission: Justification of Admission Dx: N/A SUGAR PERERA APRN Jun 28, 2020 17:08
== END 2020-06-28 17:35 | disposition home or self-care (01) ==
LOC: ER 14:46
DX: G89.29 Other chronic pain (principal); M54.5 Low back pain; R11.2 Nausea with vomiting, unspecified; R19.7 Diarrhea, unspecified; E11.9 Type 2 diabetes mellitus without complications; E03.9 Hypothyroidism, unspecified; F41.9 Anxiety disorder, unspecified; F32.9 Major depressive disorder, single episode, unspecified; Z88.8 Allergy status to other drugs, medicaments and biological substances
CPT/HCPCS: 81001; 81025; 87086; 96372; 99284; J2270; J2360

== ENCOUNTER 2020-07-05 17:57 | Emergency (ER) | payer OTHER ==
[~2020-07-05] VITALS: Ht 167.6 cm; Wt 104.3 kg
[~2020-07-05 17:57] MED LIST changes: +OXYC-317 PO
[2020-07-05 18:15] VITALS: BP 141/101
[2020-07-05 20:02] LABS: BILIRUBIN,URINE NEGATIVE (NEG); COLOR,URINE YELLOW; NITRITE,URINE NEGATIVE (NEG); PH,URINE 5.5 (<5.0-8.0); PROTEIN,URINE 30 mg/dL (NEG-TRACE); UROBILINOGEN,URINE 0.2 mg/dL (0.2 mg/dL)
[2020-07-05 20:07] LABS: CLARITY,URINE CLEAR
[2020-07-05 20:08] LABS: BACTERIA,URINE MANY /HPF (0-FEW); HYALINE CASTS, URINE MANY /HPF
[2020-07-05 20:12] LABS: RBC,URINE OCC /HPF (0-2)
--- NOTE | 2020-07-05 20:36 | RAD ---
RIBS LEFT AND PA CHEST History: Left rib pain after a fall Comparison: May 26, 2020 Findings: Single view of the chest and 3 additional views of the left ribs are submitted. There is no infiltrate, pleural fluid, or pneumothorax. The right costophrenic sulcus was not entirely included on this exam. Heart size is within normal limits. No displaced left rib fracture is identified by radiographs. Impression: 1. No displaced left rib fracture is identified by radiograph. Electronically signed by: Blake Beck MD (07/05/2020 8:33 PM) [facility]
[2020-07-05] MEDS ORDERED: ORPHENADRINE CITRATE 60 MG/2 ML VIAL. IM ONE (21:00)
[2020-07-05] MEDS ORDERED: MORPHINE SULFATE 4 MG/ML VIAL. IM ONE (21:00)
--- NOTE | 2020-07-05 21:20 | PHYS DOC ---
Past Medical History Past Medical History: Anxiety, Depression, Diabetes-Type II, Hypothyroid, Other Additional Past Medical Histor: back pain, DDD, obesity Past Surgical History: Cholecystectomy, Other Additional Past Surgical Histo: LEEP procedure for HPV Smoking Status: Never Smoker Alcohol Use: None Drug Use: None General Adult EDM: Chief Complaint: MECHANICAL FALL HPI: HPI: Patient is a 44 year old female presents emergency department with complaints of left mid to low paraspinal back pain and left lateral rib pain after a fall approximately 30 minutes prior to arrival. Patient states that she slipped and fell in her bathroom and hit the left side of her body on the tub railing. She denies any loss of consciousness, head, neck, or extremity pain. She denies any cough, hemoptysis, shortness of breath, nausea, vomiting, vision changes, numbness, tingling, or weakness. Patient reports a history of chronic back pain. She denies any bony tenderness. She currently rates her pain 9 out of 10 on pain scale, she states that she takes home pain medication but she is currently out of her pain medication she has an appointment with her pain man agement doctor tomorrow. Review of Systems: Review of Systems: Constitutional: Denies fever or chills. [] Respiratory: Denies cough or shortness of breath. [] Cardiovascular: Denies chest pain or edema. [] GI: Denies abdominal pain, nausea, vomiting : Denies pneumaturia Musculoskeletal: See HPI Integument: Denies rash. [] Neurologic: Denies headache, focal weakness or sensory changes. [] Complete ROS is negative unless otherwise stated in the HPI. Heart Score: Risk Factors: Risk Factors: DM, Current or recent (<one month) smoker, HTN, HLP, family history of CAD, obesity. Risk Scores: Score 0 - 3: 2.5% MACE over next 6 weeks - Discharge Home Score 4 - 6: 20.3% MACE over next 6 weeks - Admit for Clinical Observation Score 7 - 10: 72.7% MACE over next 6 weeks - Early Invasive Strategies Current Medications: Current Medications Medications (Trade) Dose Ordered Sig/Brandi Start Time Stop Time Status Last Admin Dose Admin Morphine Sulfate (Morphine Sulfate) 6 mg 1X ONCE 07/05/20 21:00 07/05/20 21:01 DC 07/05/20 21:03 6 MG Orphenadrine Citrate (Norflex) 60 mg 1X ONCE 07/05/20 21:00 07/05/20 21:01 DC 07/05/20 21:03 60 MG Allergies: Allergies: Allergies Coded Allergies Type Severity Reaction Last Updated Verified venlafaxine Allergy Intermediate 05/27/20 Yes tizanidine Allergy Mild HALLUCINATIONS 05/26/20 Yes Physical Exam: PE: Constitutional: Well developed, well nourished, no acute distress, non-toxic appearance. [] HENT: Normocephalic, atraumatic, bilateral external ears normal, nose normal. [] Eyes: PERRLA, EOMI, conjunctiva normal, no discharge. [] Neck: Normal range of motion, no stridor. [] Cardiovascular:Heart rate regular rhythm Lungs & Thorax: Respirations even and unlabored, no retractions, no respiratory distress; lateral posterior rib tenderness palpation without subcutaneous emphysema, crepitus, or obvious deformity. Back: No bony tenderness, left thoracic and lumbar paraspinal tenderness to palpation, no bruising skin: Warm, dry, no erythema, no rash. [] Extremities: No cyanosis, ROM intact, no edema. [] Neurologic: Alert and oriented X 3, no focal deficits noted. [] Psychologic: Affect normal, judgement normal, mood normal. [] Current Patient Data: Labs: Laboratory Tests Test 07/05/20 19:54 07/05/20 20:01 Urine Collection Type Void Urine Color Yellow Urine Clarity Clear Urine pH 5.5 (<5.0-8.0) Urine Specific [facility] 1.020 (1.000-1.030) Urine Protein 30 mg/dL (NEG-TRACE) Urine Glucose (UA) Negative mg/dL (NEG) Urine Ketones (Stick) Negative mg/dL (NEG) Urine Blood Negative (NEG) Urine Nitrite Negative (NEG) Urine Bilirubin Negative (NEG) Urine Urobilinogen Dipstick 0.2 mg/dL (0.2 mg/dL) Urine Leukocyte Esterase Small (NEG) Urine RBC Occ /HPF (0-2) Urine WBC 5-10 /HPF (0-4) Urine Squamous Epithelial Cells Many /LPF Urine Bacteria Many /HPF (0-FEW) Urine Hyaline Casts Many /HPF Urine Mucus Marked /LPF POC Urine HCG, Qualitative Hcg negative (Negative) Vital Signs: Vital Signs Date Time Temp Pulse Resp B/P (MAP) Pulse Ox O2 Delivery O2 Flow Rate FiO2 07/05/20 21:03 Room Air 07/05/20 18:15 97.5 98 14 141/101 (114) 98 97.5 EKG: EKG: [] Radiology/Procedures: Radiology/Procedures: PROCEDURE: RIBS LEFT AND PA CHEST RIBS LEFT AND PA CHEST History: Left rib pain after a fall Comparison: May 26, 2020 Findings: Single view of the chest and 3 additional views of the left ribs are submitted. There is no infiltrate, pleural fluid, or pneumothorax. The right costophrenic sulcus was not entirely included on this exam. Heart size is within normal limits. No displaced left rib fracture is identified by radiographs. Impression: 1. No displaced left rib fracture is identified by radiograph. [] Course & Med Decision Making: Course & Med Decision Making Pertinent Labs and Imaging studies reviewed. (See chart for details) 44-year-old female presents emergency department with complaints of left lateral rib and paraspinal left-sided back pain after a fall. X-rays of the chest and left ribs was negative for any acute fracture findings. Patient was given 60 mg of IM Norflex and 6 mg of IM morphine, she reported feeling better after these medications. I encouraged patient follow-up with her pain management doctor as planned tomorrow. Continue taking home medications as prescribed. Return to the ER symptoms worsen. Patient verbalized an understanding of home care, medications, follow-up, and return to ED instructions and was in agreement with the plan of care. [] Dragon Disclaimer: Dragon Disclaimer: This electronic medical record was generated, in whole or in part, using a voice recognition dictation system. Departure Departure Impression: Primary Impression: Fall Qualified Codes: W19.XXXA - Unspecified fall, initial encounter Additional Impression: Contusion of rib on left side Qualified Codes: S20.212A - Contusion of left front wall of thorax, initial encounter Disposition: HOME, SELF-CARE Condition: STABLE Referrals: ALEXIS GREENE MD (PCP) Patient Instructions: Rib Contusion Additional Instructions: Take your home pain medications as applied, apply ice to the sore area for 10 to 15 minutes every hour to 2 hours tonight and tomorrow. Be sure to hug a pillow and take 2 deep breaths every hour. Follow-up with your primary care doctor in 1 to 2 days. Return to the ER if your symptoms worsen [employer] Jul 05, 2020 21:19
== END 2020-07-05 21:24 | disposition home or self-care (01) ==
LOC: ER 17:57
DX: S20.212A Contusion of left front wall of thorax, initial encounter (principal); M54.5 Low back pain; M54.6 Pain in thoracic spine; E11.9 Type 2 diabetes mellitus without complications; E03.9 Hypothyroidism, unspecified; E66.9 Obesity, unspecified; Z68.31 Body mass index [BMI] 31.0-31.9, adult; F41.9 Anxiety disorder, unspecified; F32.9 Major depressive disorder, single episode, unspecified; Z90.49 Acquired absence of other specified parts of digestive tract; Z88.8 Allergy status to other drugs, medicaments and biological substances
CPT/HCPCS: 71101; 81001; 81025; 87086; 96372; 99284; J2270; J2360

== ENCOUNTER 2020-08-06 07:09 | Emergency (ER) | payer OTHER ==
[~2020-08-06] VITALS: Ht 167.6 cm; Wt 105.0 kg
[2020-08-06] MEDS ORDERED: KETOROLAC 60 MG/2 ML VIAL. IM ONE ×2 (08:45)
[2020-08-06] MEDS ORDERED: ORPHENADRINE CITRATE 60 MG/2 ML VIAL. IM ONE (08:45)
[2020-08-06 08:56] LABS: BILIRUBIN,URINE NEGATIVE (NEG); CLARITY,URINE CLEAR; COLOR,URINE YELLOW; NITRITE,URINE NEGATIVE (NEG); PH,URINE 5.5 (<5.0-8.0); PROTEIN,URINE NEGATIVE (NEG-TRACE); UROBILINOGEN,URINE 0.2 mg/dL (0.2 mg/dL)
[2020-08-06 09:18] LABS: RBC,URINE OCC /HPF (0-2)
[2020-08-06 09:19] LABS: BACTERIA,URINE FEW /HPF (0-FEW)
[2020-08-06 09:30] VITALS: BP 134/77
[2020-08-06 09:38] LABS: CALCIUM 9.4 mg/dL (8.5-10.1); GFR 60.2; POTASSIUM 3.6 mmol/L (3.5-5.1)
--- NOTE | 2020-08-06 09:58 | ED.ADGEN ---
Past Medical History Past Medical History: Anxiety, Depression, Diabetes-Type I, Hypothyroid, Other Additional Past Medical Histor: back pain, DDD, obesity Past Surgical History: Cholecystectomy, Other Additional Past Surgical Histo: LEEP procedure for HPV Smoking Status: Never Smoker Alcohol Use: None Drug Use: None General Adult EDM: Chief Complaint: MULTIPLE COMPLAINTS HPI: HPI: Patient is a 44-year-old female with past medical history of degenerative joint disease on chronic opiates for chronic pain who presents to the emergency room complaining of severe pain. She sees a pain specialist. She states that she is not on a pain contract but she does get narcotic pain medicine from her specialist. She ran out on and is now having severe pain. Pain is unchanged from normal pain. She has not had any kind of fever, trauma, bowel incontinence, urinary retention. She also states that she has not been able to take her insulin due to insurance issues. She feels like her glucose may be very high and is requesting a glucose check. Review of Systems: Review of Systems: Complete ROS is negative unless otherwise documented in HPI Current Medications: Current Medications Medications (Trade) Dose Ordered Sig/Brandi Start Time Stop Time Status Last Admin Dose Admin Ketorolac Tromethamine (Toradol Im) 60 mg 1X ONCE 08/06/20 08:45 08/06/20 08:46 DC 08/06/20 09:41 60 MG Orphenadrine Citrate (Norflex) 60 mg 1X ONCE 08/06/20 08:45 08/06/20 08:46 DC 08/06/20 09:41 60 MG Sodium Chloride 1,000 ml @ 1,000 mls/hr 1X ONCE 08/06/20 10:00 08/06/20 10:17 DC Allergies: Allergies: Allergies Coded Allergies Type Severity Reaction Last Updated Verified venlafaxine Allergy Intermediate 05/27/20 Yes tizanidine Allergy Mild HALLUCINATIONS 05/26/20 Yes Physical Exam: PE: General: Awake, alert, NAD. Well Nourished, well hydrated. Cooperative HEENT: Atraumatic, EOMI, PERRL, airway patent, moist oral mucosa Neck: Supple, trachea midline Respiratory: CTA bilaterally, normal effort, no wheezing/crackles CV: RRR, no murmur, cap refill <2 GI: Soft, nondistended, nontender, no masses MSK: No obvious deformities, diffuse lower back tenderness Skin: Warm, dry, intact Neuro: A&O x3, speech NL, sensory and motor grossly intact, no focal deficits Psych: Normal affect, normal mood, not suicidal or homicidal Current Patient Data: Labs: Laboratory Tests Test 08/06/20 08:31 08/06/20 09:15 Urine Collection Type Unknown Urine Color Yellow Urine Clarity Clear Urine pH 5.5 (<5.0-8.0) Urine Specific [place] >=1.030 (1.000-1.030) Urine Protein Negative mg/dL (NEG-TRACE) Urine Glucose (UA) Negative mg/dL (NEG) Urine Ketones (Stick) 15 mg/dL (NEG) Urine Blood Negative (NEG) Urine Nitrite Negative (NEG) Urine Bilirubin Negative (NEG) Urine Urobilinogen Dipstick 0.2 mg/dL (0.2 mg/dL) Urine Leukocyte Esterase Negative (NEG) Urine RBC Occ /HPF (0-2) Urine WBC 1-4 /HPF (0-4) Urine Squamous Epithelial Cells Many /LPF Urine Bacteria Few /HPF (0-FEW) Urine Mucus Marked /LPF Sodium Level 137 mmol/L (136-145) Potassium Level 3.6 mmol/L (3.5-5.1) Chloride Level 102 mmol/L (98-107) Carbon Dioxide Level 23 mmol/L (21-32) Anion Gap 12 (6-14) Blood Urea Nitrogen 13 mg/dL (7-20) Creatinine 1.0 mg/dL (0.6-1.0) Estimated GFR (Cockcroft-Gault) 60.2 Glucose Level 174 mg/dL (70-99) H Calcium Level 9.4 mg/dL (8.5-10.1) Laboratory Tests 08/06/20 09:15 Vital Signs: Vital Signs Date Time Temp Pulse Resp B/P (MAP) Pulse Ox O2 Delivery O2 Flow Rate FiO2 08/06/20 07:15 98.1 87 18 134/82 (99) 98 Room Air 98.1 EKG: EKG: [] Heart Score: Risk Factors: Risk Factors: DM, Current or recent (<one month) smoker, HTN, HLP, family his tory of CAD, obesity. Risk Scores: Score 0 - 3: 2.5% MACE over next 6 weeks - Discharge Home Score 4 - 6: 20.3% MACE over next 6 weeks - Admit for Clinical Observation Score 7 - 10: 72.7% MACE over next 6 weeks - Early Invasive Strategies Radiology/Procedures: Radiology/Procedures: [] Course & Med Decision Making: Course & Med Decision Making Pertinent Labs and Imaging studies reviewed. (See chart for details) Patient is a 44-year-old female who presents to the Emergency room with non- traumatic back pain. Patient denies bowel incontinence, urinary retention, fever, numbness, weakness. On exam, patient does not have a neurologic deficits, saddle anesthesia, gait difficulty, signs of trauma, or wounds near area of pain. Patient does not have a history of cancer or prolonged steroid use. At this time, patient does not have any signs, symptoms, or risk factors of emergent causes of back pain making cauda equina, spinal abscess, transverse myelitis, fractures, and other causes of emergent back pain highly unlikely. At this time, patient does not need any further work up for their back pain and w ill be treated symptomatically. I have discussed with her that I am uncomfortable treating with narcotics for patients who are on pain contracts and have chronic pain. BMP and UA were ordered to evaluate for DKA. Patient has a normal glucose and does not appear to be in DKA at this time. She has a follow-up appointment with pain management tomorrow. Patient's test results and vitals while in the ED were fully reviewed and discussed with the patient. Patient is stable and at this time does not need admission to the hospital. We have discussed strict return precautions and the importance of following up with their Primary Care Physician. Patient stated understanding and was given an opportunity to ask any questions. Patient is in agreement with plan. Darlene Disclaimer: Darlene Disclaimer: This electronic medical record was generated, in whole or in part, using a voice recognition dictation system. Departure Departure Impression: Primary Impression: Chronic back pain Additional Impression: Sciatica Disposition: 01 DC HOME SELF CARE/HOMELESS Condition: STABLE Referrals: ALEXIS GREENE MD (PCP) Patient Instructions: Chronic Back Pain Problem Qualifiers MAYA MUÑOZ MD Aug 06, 2020 09:58
[2020-08-06] MEDS ORDERED: IV NORMAL SALINE 1000ML BAG 1,000 ML IV ONE (10:00)
== END 2020-08-06 10:13 | disposition home or self-care (01) ==
LOC: ER 07:09
DX: G89.29 Other chronic pain (principal); M54.40 Lumbago with sciatica, unspecified side; E10.9 Type 1 diabetes mellitus without complications; E03.9 Hypothyroidism, unspecified; Z90.49 Acquired absence of other specified parts of digestive tract; Z88.8 Allergy status to other drugs, medicaments and biological substances
CPT/HCPCS: 36415; 80048; 81001; 96372; 99284; J1885; J2360

== ENCOUNTER 2021-03-11 06:41 | Emergency (ER) | payer BC, OTHER ==
[~2021-03-11] VITALS: Ht 170.2 cm; Wt 109.0 kg
[2021-03-11] MEDS ORDERED: IV NORMAL SALINE 1000ML BAG 1,000 ML IV ONE (07:45)
[2021-03-11 08:01] LABS: BASO # 0.1 x10^3/uL (0.0-0.2); BASO % 1 % (0-3); EOS # 0.2 x10^3/uL (0.0-0.7); EOS % 2 % (0-3); HEMATOCRIT 41.2 % (36.0-47.0); HEMOGLOBIN 14.2 g/dL (12.0-15.5); LYMPH # 2.4 x10^3/uL (1.0-4.8); LYMPH % 25 % (24-48); MEAN CORPUSCULAR HEMOGLOBIN 29 pg (25-35); MEAN CORPUSCULAR HGB CONC 34 g/dL (31-37); MEAN CORPUSCULAR VOLUME 84 fL (79-100); MONO # 0.7 x10^3/uL (0.0-1.1); MONO % 7 % (0-9); NEUT # 6.3 x10^3/uL (1.8-7.7); NEUT % 65 % (31-73); PLATELET COUNT 412 x10^3/uL (140-400); RED BLOOD COUNT 4.88 x10^6/uL (3.50-5.40); RED CELL DISTRIBUTION WIDTH 14.1 % (11.5-14.5); WHITE BLOOD COUNT 9.6 x10^3/uL (4.0-11.0)
[2021-03-11 08:08] LABS: CREATININE 0.9 mg/dL (0.6-1.0); GFR 67.7; POTASSIUM 4.1 mmol/L (3.5-5.1)
[2021-03-11] MEDS ORDERED: ONDANSETRON PF 4 MG/2 ML VIAL. IVP ONE ×2 (08:15→11:00)
[2021-03-11] MEDS ORDERED: KETOROLAC 30 MG/ML VIAL. IVP ONE (08:15)
--- NOTE | 2021-03-11 08:33 | ED.ADGEN ---
Past Medical History Past Medical History: Anxiety, Depression, Diabetes-Type I, Hypothyroid, UTI, Other Additional Past Medical Histor: back pain, DDD, obesity Past Surgical History: Cholecystectomy, Other Additional Past Surgical Histo: LEEP procedure for HPV Smoking Status: Never Smoker Alcohol Use: None Drug Use: None General Adult EDM: Chief Complaint: NAUSEA/VOMITING/DIARRHEA HPI: HPI: Patient is a 45-year-old female past medical history of chronic back pain and diabetes who presents to the emergency room complaining of left lower abdominal pain with radiation into her flank. She states she has been having blood in her urine. She states she has been having fevers intermittently for the last couple weeks with associated dysuria. She believes that she may have a kidney stone. She is also worried about a possible ovarian cyst or if her diabetes is acting up. Patient is insistent that she is not here for pain medicine without being asked. She states the pain in her left abdomen is sharp and radiates. It is constant in nature and has progressively gotten worse. Review of Systems: Review of Systems: Complete ROS is negative unless otherwise documented in HPI Current Medications: Current Medications Medications (Trade) Dose Ordered Sig/Brandi Start Time Stop Time Status Last Admin Dose Admin Ketorolac Tromethamine (Toradol 30mg Vial) 30 mg 1X ONCE 03/11/21 08:15 03/11/21 08:16 DC 03/11/21 07:58 30 MG Ondansetron HCl (Zofran) 4 mg 1X ONCE 03/11/21 11:00 03/11/21 11:01 DC 03/11/21 10:39 4 MG Phenazopyridine HCl (Pyridium) 200 mg 1X ONCE 03/11/21 11:00 03/11/21 11:01 DC 03/11/21 10:39 200 MG Sodium Chloride 1,000 ml @ 1,000 mls/hr 1X ONCE 03/11/21 07:45 03/11/21 08:44 DC 03/11/21 07:57 1,000 MLS/HR Allergies: Allergies: Allergies Coded Allergies Type Severity Reaction Last Updated Verified venlafaxine Allergy Intermediate 05/27/20 Yes tizanidine Allergy Mild HALLUCINATIONS 05/26/20 Yes Physical Exam: PE: General: Awake, alert, NAD. Well Nourished, well hydrated. Cooperative HEENT: Atraumatic, EOMI, PERRL, airway patent, moist oral mucosa Neck: Supple, trachea midline Respiratory: CTA bilaterally, normal effort, no wheezing/crackles CV: Tachycardia, no murmur, cap refill <2 GI: Soft, nondistended, left-sided abdominal tenderness, no masses MSK: No obvious deformities Skin: Warm, dry, intact Neuro: A&O x3, speech NL, sensory and motor grossly intact, no focal deficits Psych: Normal affect, normal mood, not suicidal or homicidal Current Patient Data: Labs: Laboratory Tests Test 03/11/21 07:50 03/11/21 08:41 White Blood Count 9.6 x10^3/uL (4.0-11.0) Red Blood Count 4.88 x10^6/uL (3.50-5.40) Hemoglobin 14.2 g/dL (12.0-15.5) Hematocrit 41.2 % (36.0-47.0) Mean Corpuscular Volume 84 fL (79-100) Mean Corpuscular Hemoglobin 29 pg (25-35) Mean Corpuscular Hemoglobin Concent 34 g/dL (31-37) Red Cell Distribution Width 14.1 % (11.5-14.5) Platelet Count 412 x10^3/uL (140-400) H Neutrophils (%) (Auto) 65 % (31-73) Lymphocytes (%) (Auto) 25 % (24-48) Monocytes (%) (Auto) 7 % (0-9) Eosinophils (%) (Auto) 2 % (0-3) Basophils (%) (Auto) 1 % (0-3) Neutrophils # (Auto) 6.3 x10^3/uL (1.8-7.7) Lymphocytes # (Auto) 2.4 x10^3/uL (1.0-4.8) Monocytes # (Auto) 0.7 x10^3/uL (0.0-1.1) Eosinophils # (Auto) 0.2 x10^3/uL (0.0-0.7) Basophils # (Auto) 0.1 x10^3/uL (0.0-0.2) Sodium Level 140 mmol/L (136-145) Potassium Level 4.1 mmol/L (3.5-5.1) Chloride Level 106 mmol/L (98-107) Carbon Dioxide Level 22 mmol/L (21-32) Anion Gap 12 (6-14) Blood Urea Nitrogen 12 mg/dL (7-20) Creatinine 0.9 mg/dL (0.6-1.0) Estimated GFR (Cockcroft-Gault) 67.7 Glucose Level 171 mg/dL (70-99) H Calcium Level 9.0 mg/dL (8.5-10.1) Urine Collection Type Unknown Urine Color Yellow Urine Clarity Cloudy Urine pH 5.5 (<5.0-8.0) Urine Specific [place] >=1.030 (1.000-1.030) Urine Protein Negative mg/dL (NEG-TRACE) Urine Glucose (UA) Negative mg/dL (NEG) Urine Ketones (Stick) Trace mg/dL (NEG) Urine Blood Negative (NEG) Urine Nitrite Negative (NEG) Urine Bilirubin Small (NEG) Urine Urobilinogen Dipstick 0.2 mg/dL (0.2 mg/dL) Urine Leukocyte Esterase Moderate (NEG) Urine RBC 0 /HPF (0-2) Urine WBC 11-20 /HPF (0-4) Urine Squamous Epithelial Cells Many /LPF Urine Bacteria Mod /HPF (0-FEW) Urine Mucus Marked /LPF Urine Test Negative (NEG) Laboratory Tests 03/11/21 07:50 Laboratory Tests 03/11/21 07:50 Vital Signs: Vital Signs Date Time Temp Pulse Resp B/P (MAP) Pulse Ox O2 Delivery O2 Flow Rate FiO2 03/11/21 09:19 94 18 170/82 (111) 100 Room Air 03/11/21 06:48 98.9 98.9 EKG: EKG: [] Heart Score: C/O Chest Pain: N/A Risk Factors: Risk Factors: DM, Current or recent (<one month) smoker, HTN, HLP, family history of CAD, obesity. Risk Scores: Score 0 - 3: 2.5% MACE over next 6 weeks - Discharge Home Score 4 - 6: 20.3% MACE over next 6 weeks - Admit for Clinical Observation Score 7 - 10: 72.7% MACE over next 6 weeks - Early Invasive Strategies Radiology/Procedures: Radiology/Procedures: [] Course & Med Decision Making: Course & Med Decision Making Pertinent Labs and Imaging studies reviewed. (See chart for details) Patient is a 45-year-old female who presents to the emergency room complaining of left-sided abdominal pain with associated urinary symptoms. Differential diagnosis includes pyelonephritis versus kidney stone versus ovarian cyst. Patient is overall well-appearing. She states she does feel dehydrated. She has some very mild tachycardia. She was given fluids and Zofran. Work-up was unremarkable other than a mild UTI. Patient will be given Pyridium and started on Keflex. She is hemodynamically stable. Patient's test results and vitals while in the ED were fully reviewed and discussed with the patient. Patient is stable and at this time does not need admission to the hospital. We have discussed strict return precautions and the importance of following up with their Primary Care Physician. Patient stated understanding and was given an opportunity to ask any questions. Patient is in agreement with plan. Darlene Disclaimer: Darlene Disclaimer: This electronic medical record was generated, in whole or in part, using a voice recognition dictation system. Departure Departure Impression: Primary Impression: Urinary tract infection Disposition: HOME / SELF CARE / HOMELESS Condition: STABLE Referrals: ALEXIS GREENE MD (PCP) Patient Instructions: Urinary Tract Infection Scripts Ondansetron (ONDANSETRON ODT) 4 Mg Tab.rapdis 1 TAB PO PRN Q6-8HRS, #16 TAB Prov: MAYA MUÑOZ MD 03/11/21 Cephalexin (CEPHALEXIN) 500 Mg Capsule 1 CAP PO BID, #14 CAP Prov: MAYA MUÑOZ MD 03/11/21 MAYA MUÑOZ MD Mar 11, 2021 08:33
[2021-03-11 08:58] LABS: BILIRUBIN,URINE SMALL (NEG); CLARITY,URINE CLOUDY; COLOR,URINE YELLOW; NITRITE,URINE NEGATIVE (NEG); PH,URINE 5.5 (<5.0-8.0); PROTEIN,URINE NEGATIVE (NEG-TRACE); UROBILINOGEN,URINE 0.2 mg/dL (0.2 mg/dL)
[2021-03-11 09:11] LABS: BACTERIA,URINE MOD /HPF (0-FEW); RBC,URINE 0 /HPF (0-2)
[2021-03-11 09:19] VITALS: BP 170/82
[2021-03-11 09:19] LABS: U PREG PATIENT NEGATIVE (NEG)
--- NOTE | 2021-03-11 09:45 | RAD ---
CT ABDOMEN+PELVIS WO INDICATION: L flank pain EXAM: Noncontrast CT of the abdomen and pelvis. Coronal and sagittal reformatted images were perform ed. PQRS compliance statement: One or more of the following individualized dose reduction techniques were utilized for this examinat ion: 1. Automated exposure control 2. Adjustment of the mA and/or kV according to patient size 3. Use of iterative reconstruction technique COMPARISON: None FINDINGS: No free air, free fluid, or fluid collection. Lower chest: The visualized lower lungs are aerated. No pleural or pericardial effusion. ABDOMEN: Liver: Hepatic steatosis. Liver measures 20.5 cm craniocaudad. Gallbladder and biliary: Cholecystectomy. Normal caliber bile ducts. Spleen: Normal spleen. Pancreas: The noncontrast pancreas is homogeneous in attenuation without peripancreatic inflammatory changes. Adrenal glands: Normal adrenal glands. Kidneys and ureters: No opaque urinary calculi. Normal kidneys and ureters. GI tract: The stomach is decompressed and poorly evaluated. Normal caliber small bowel and colon. Nor mal appendix. Vascular structures: Normal caliber abdominal aorta. Lymph nodes: No lymphadenopathy in the abdomen or pelvis. PELVIS: Genitourinary system: Urinary bladder is decompressed. Uterus is present. SKELETAL STRUCTURES AND SOFT TISSUES: Degenerative changes of the spine IMPRESSION: 1. No acute findings. No hydronephrosis or opaque urinary calculi. 2. Hepatomegaly and hepatic steatosis. 3. Cholecystectomy. Electronically signed by: Blake Meyers MD (03/11/2021 9:43 AM) [id number]
[2021-03-11] MEDS ORDERED: CEPH500C PO (10:26)
[2021-03-11] MEDS ORDERED: ONDA4TAB12 PO (10:26)
[2021-03-11] MEDS ORDERED: PHENAZOPYRIDINE 200 MG TABLET. PO ONE (11:00)
== END 2021-03-11 10:50 | disposition home or self-care (01) ==
LOC: ER 06:41
DX: N39.0 Urinary tract infection, site not specified (principal); E10.9 Type 1 diabetes mellitus without complications; E03.9 Hypothyroidism, unspecified; G89.29 Other chronic pain; E66.9 Obesity, unspecified; Z87.440 Personal history of urinary (tract) infections; Z90.49 Acquired absence of other specified parts of digestive tract; Z68.37 Body mass index [BMI] 37.0-37.9, adult; Z88.8 Allergy status to other drugs, medicaments and biological substances
CPT/HCPCS: 36415; 74176; 80048; 81001; 81025; 85025; 96361; 96374; 96375; 99284; J1885; J2405; J7030

== ENCOUNTER 2021-08-02 00:34 | Inpatient (IN) | payer BC ==
[~2021-08-02] VITALS: Ht 170.2 cm; Wt 101.5 kg
[~2021-08-02 00:34] MED LIST changes: +CEPH500C PO; -DULO60CA6 PO; +DULO60CA7 PO; +ONDA4TAB12 PO
[2021-08-02 01:41] LABS: BASO # 0.1 x10^3/uL (0.0-0.2); BASO % 1 % (0-3); EOS % 0 % (0-3); HEMATOCRIT 40.7 % (36.0-47.0); HEMOGLOBIN 13.8 g/dL (12.0-15.5); LYMPH # 1.7 x10^3/uL (1.0-4.8); LYMPH % 14 % (24-48); MEAN CORPUSCULAR HEMOGLOBIN 28 pg (25-35); MEAN CORPUSCULAR HGB CONC 34 g/dL (31-37); MEAN CORPUSCULAR VOLUME 81 fL (79-100); MONO # 0.8 x10^3/uL (0.0-1.1); MONO % 6 % (0-9); NEUT # 9.7 x10^3/uL (1.8-7.7); NEUT % 79 % (31-73); PLATELET COUNT 376 x10^3/uL (140-400); RED BLOOD COUNT 5.03 x10^6/uL (3.50-5.40); RED CELL DISTRIBUTION WIDTH 14.9 % (11.5-14.5); WHITE BLOOD COUNT 12.3 x10^3/uL (4.0-11.0)
[2021-08-02 02:07] LABS: CALCIUM 9.2 mg/dL (8.5-10.1); CREATININE 0.8 mg/dL (0.6-1.0); GFR 77.6; POTASSIUM 3.8 mmol/L (3.5-5.1)
--- NOTE | 2021-08-02 02:07 | PHYS DOC ---
Past Medical History Past Medical History: Anxiety, Depression, Diabetes-Type I, Hypothyroid, UTI, Other Additional Past Medical Histor: back pain, DDD, obesity Past Surgical History: Cholecystectomy, Other Additional Past Surgical Histo: LEEP procedure for HPV Smoking Status: Never Smoker Alcohol Use: None Drug Use: None General Adult EDM: Chief Complaint: ANXIETY/PANIC ATTACK HPI: HPI: 45-year-old female past medical history of anxiety/depression, bipolar disorder, chronic back pain and diabetes, presents the ED with her , (patient consents to his/her/their knowledge and involvement in pts' medical care), concern for confusion and abnormal behavior since early this morning-states confusion worsened around 7:30 PM tonight when he asked her to turn off a light. noticed that it's been 15 days and her oxycodone prescription bottle is empty (had a 30 day supply). Was started on Seroquel 07/20 but stopped it due to how it made her feel. Medications that can recall include Seroquel, Xanax, oxycodone and Cymbalta. Pt alert to name/age/place but not month/year. Hx and ROS limited due to pts' mental status. reports h/o delta 8 use. Review of Systems: Review of Systems: ROS limited due to pts' mental status Heart Score: C/O Chest Pain: N/A Risk Factors: Risk Factors: DM, Current or recent (<one month) smoker, HTN, HLP, family history of CAD, obesity. Risk Scores: Score 0 - 3: 2.5% MACE over next 6 weeks - Discharge Home Score 4 - 6: 20.3% MACE over next 6 weeks - Admit for Clinical Observation Score 7 - 10: 72.7% MACE over next 6 weeks - Early Invasive Strategies Allergies: Allergies: Allergies Coded Allergies Type Severity Reaction Last Updated Verified venlafaxine Allergy Intermediate 05/27/20 Yes tizanidine Allergy Mild HALLUCINATIONS 05/26/20 Yes Physical Exam: PE: Constitutional: hypertensive, unkept but non-toxic appearance, constantly moving in ed stretcher but not writhing or uncomfortable appearing HENT: Normocephalic, atraumatic, dry mucous membranes, no facial droop, Eyes: PERRLA, mydriatic pupils, EOMI, conjunctiva normal, no discharge. Neck: Normal range of motion, supple, Cardiovascular: S1/2 present, regular rhythm Lungs & Thorax: Speaking in full sentences, bilateral equal chest rise, no tachypnea or increased work of breathing Abdomen: soft, no tenderness, Skin: Warm, dry, Back: No midline spinal step offs or reproducible tenderness, Extremities: no cyanosis, no lower extremity edema Neurologic: Alert but keeps repeating the same thing over and over when asked questions, normal motor function, normal sensory function, no aphasia, no ataxia-walks to bathroom Psychologic: Affect normal, judgement normal, mood normal. [] Current Patient Data: Labs: Laboratory Tests Test 08/02/21 01:30 White Blood Count 12.3 x10^3/uL (4.0-11.0) H Red Blood Count 5.03 x10^6/uL (3.50-5.40) Hemoglobin 13.8 g/dL (12.0-15.5) Hematocrit 40.7 % (36.0-47.0) Mean Corpuscular Volume 81 fL (79-100) Mean Corpuscular Hemoglobin 28 pg (25-35) Mean Corpuscular Hemoglobin Concent 34 g/dL (31-37) Red Cell Distribution Width 14.9 % (11.5-14.5) H Platelet Count 376 x10^3/uL (140-400) Neutrophils (%) (Auto) 79 % (31-73) H Lymphocytes (%) (Auto) 14 % (24-48) L Monocytes (%) (Auto) 6 % (0-9) Eosinophils (%) (Auto) 0 % (0-3) Basophils (%) (Auto) 1 % (0-3) Neutrophils # (Auto) 9.7 x10^3/uL (1.8-7.7) H Lymphocytes # (Auto) 1.7 x10^3/uL (1.0-4.8) Monocytes # (Auto) 0.8 x10^3/uL (0.0-1.1) Eosinophils # (Auto) 0.0 x10^3/uL (0.0-0.7) Basophils # (Auto) 0.1 x10^3/uL (0.0-0.2) Laboratory Tests 08/02/21 01:30 EKG: EKG: [] Radiology/Procedures: Radiology/Procedures: IMAGING REPORT Signed PATIENT: JESSI CRESPO AACCOUNT: [id number] : 1975 LOCATION: ER AGE: 45 SEX: F EXAM STATUS: REG ER ORD. PHYSICIAN: LISET AMBROSE DO REASON: confused vs intox? PROCEDURE: CT HEAD WO CONTRAST PQRS Compliance Statement: One or more of the following individualized dose reduction techniques were utilized for this examination: 1. Automated exposure control 2. Adjustment of the mA and/or kV according to patient size 3. Use of iterative reconstruction technique CT head without contrast 08/02/2021 2:50 AM INDICATION: Confusion COMPARISON: CT head 05/26/2020 TECHNIQUE: Multiple axial CT images of the head were obtained from skull base through the vertex without intravenous contrast. FINDINGS: Head: Ventricles are enlarged, out of proportion to sulcal volume loss. Findings are stable. There is no hydrocephalus. Macdonald-white matter differentiation is normal. There is no acute intracranial hemorrhage. There is no mass, mass effect or midline shift. Posterior fossa is normal in appearance. Suspect remote ischemic changes involving the medial left occipital lobe. Findings are stable from 05/18/2020. Visualized portions of the orbits are normal. Paranasal sinuses are well aerated. Mastoid air cells are well aerated. Scalp and calvaria are normal. IMPRESSION: No acute intracranial hemorrhage. Ventriculomegaly, out of proportion to sulcal volume loss. Findings may be seen with normal pressure hydrocephalus. Findings are not significantly changed since 05/26/2020. Suspect remote ischemic changes involving the medial left occipital lobe. Electronically signed by: Luis Bradley MD (08/02/2021 3:11 AM) [facility] DICTATED and SIGNED BY: LUIS BRADLEY MD DATE: 08/02/21 [id number] 0 Course & Med Decision Making: Course & Med Decision Making Pertinent Labs and Imaging studies reviewed. (See chart for details) Initially concerned for confusion vs substance abuse in the setting of uncontrolled hypertension. On reevaluation regarding abnormal CT findings/remote ischemic changes, pt fully alert with decision-making capacity, NIHSS0. Patient states her chronic low back pain is so severe she ran out of her oxycodone. Drug screen is negative for opiates. Hydralazine given in ed and BP improved. Concern for symptomatic hypertension. Will admit to medicine for further medical management-neurology consult placed. Patient stable at time of admission agrees with this plan. I have spoken with the patient and/or caregivers. I have explained the patient's condition, diagnosis and treatment plan based on the information available to me at this time. I have answered the patient's and/or caregivers questions and answered any concerns. The patient and/or caregivers have as good an understanding of the patient's diagnosis, condition and treatment plan as can be expected at this point. The patient has been stabilized within the capability of the emergency department. The patient will be transported for further care and management or will be moved to an observation or inpatient service. I have communicated with the staff or medical practitioner taking over this patient's care. Darlene Disclaimer: Darlene Disclaimer: This electronic medical record was generated, in whole or in part, using a voice recognition dictation system. Departure Departure Impression: Primary Impression: Confusion Additional Impressions: Uncontrolled hypertension Ischemic changes on head CT Disposition: ADMITTED INPATIENT Admitting Physician: ALBERT (Dr. Gar) Condition: STABLE Referrals: ALEXIS GREENE MD (PCP) LISET AMBROSE DO Aug 02, 2021 02:07
[2021-08-02 02:12] LABS: ACETAMIN < 2 mcg/ml (10-30); ETHANOL < 10 mg/dL (0-10); SALIC 1.1 mg/dL (2.8-20.0)
[2021-08-02 02:48] LABS: BARBITURATES NEG (NEG); BENZODIAZEPINES POS (NEG); CANNABINOIDS POS (NEG); COCAINE NEG (NEG); METHADONE NEG (NEG); OPIATES NEG (NEG); PHENCYCLIDINE NEG (NEG)
[2021-08-02 02:51] LABS: AMPHETAMINE/METHAMPHETAMINE NEG (NEG)
--- NOTE | 2021-08-02 03:14 | RAD ---
PQRS Compliance Statement: One or more of the following individualized dose reduction techniques were utilized for this examinat ion: 1. Automated exposure control 2. Adjustment of the mA and/or kV according to patient size 3. Use of iterative reconstruction technique CT head without contrast 08/02/2021 2:50 AM INDICATION: Confusion COMPARISON: CT head 05/26/2020 TECHNIQUE: Multiple axial CT images of the head were obtained from skull base through the vertex with out intravenous contrast. FINDINGS: Head: Ventricles are enlarged, out of proportion to sulcal volume loss. Findings are stable. There is no hy drocephalus. Macdonald-white matter differentiation is normal. There is no acute intracranial hemorrhage. There is no mass, mass effect or midline shift. Posterior fossa is normal in appearance. Suspect sid te ischemic changes involving the medial left occipital lobe. Findings are stable from 05/18/2020. Visualized portions of the orbits are normal. Paranasal sinuses are well aerated. Mastoid air cells a re well aerated. Scalp and calvaria are normal. IMPRESSION: No acute intracranial hemorrhage. Ventriculomegaly, out of proportion to sulcal volume loss. Findings may be seen with normal pressure hydrocephalus. Findings are not significantly changed since 05/26/2020. Suspect remote ischemic changes involving the medial left occipital lobe. Electronically signed by: Sayra Crandall MD (08/02/2021 3:11 AM) ANITA
[2021-08-02] MEDS ORDERED: hydrALAZINE 20 MG/ML VIAL. IVP ONE (04:00)
--- NOTE | 2021-08-02 06:00 | NUR ---
The patient, JESSI CRESPO, 45 y/o, F admitted by PEREZ BAUTISTA MD, was given written information regarding hospital policies, unit procedures and contact persons. Valuables were checked and left with her.
[2021-08-02 06:14] VITALS: BP 160/100
[2021-08-02] MEDS ORDERED: ZOLPIDEM 5 MG TABLET. PO PRN (07:45)
[2021-08-02] MEDS ORDERED: ACETAMINOPHEN 325 MG TABLET. PO PRN ×2 (07:45→19:45)
[2021-08-02] MEDS ORDERED: DOCUSATE SODIUM 100 MG CAPSULE. PO PRN (07:45)
[2021-08-02] MEDS ORDERED: SENNOSIDES 8.6 MG TABLET PO PRN (07:45)
[2021-08-02] MEDS ORDERED: DEXTROSE 50% 25 GM / 50ML DISP.SYRIN. IV PRN (07:45)
[2021-08-02] MEDS ORDERED: ONDANSETRON PF 4 MG/2 ML VIAL. IVP PRN (07:45)
[2021-08-02] MEDS ORDERED: PROCHLORPERAZINE 10 MG/2 ML VIAL. IV PRN (07:45)
[2021-08-02] MEDS ORDERED: LORazepam 0.5 MG TABLET PO PRN (07:45)
--- NOTE | 2021-08-02 07:47 | PDOC1 ---
History and Physical Date of Service: DOS: DATE: 08/02/21 TIME: 07:38 Chief Complaint: Chief Complain: Confusion History of Present Illness: HPI: History obtained from discussion with the ED physician and chart review: 45-year-old female with past medical history significant for depression anxiety, bipolar disorder, chronic back pain, diabetes mellitus who comes in to the ED with her for confusion and discoordination with which her extremities and some changes in her speech. Symptoms started last night around 730 plan asked the patient to turn off the light. did also noticed that her oxycodone had been supplied for 30 days but is gone and now was only 15 days ago. She was on Seroquel on 1022 but stopped it 2 days later. Upon my interview, this morning patient feels much better and is alert awake and oriented x4. She does not complain of any focal deficits. However, feels that her speech is somewhat altered. Past Medical/Surgical History: PMH/PSH: Past Medical History: Anxiety, Depression, Diabetes-Type I, Hypothyroid, UTI, back pain, DDD, obesity Past Surgical History: Cholecystectomy, LEEP procedure for HPV Allergies: Allergies: Coded Allergies: venlafaxine (Verified Allergy, Intermediate, 05/27/20) tizanidine (Verified Allergy, Mild, HALLUCINATIONS, 05/26/20) Family History: Family History: Reviewed with no relevant findings Social History: Social History: Smoking Status: Never Smoker Alcohol Use: None Drug Use: None Current Medications: Current Medications Current Medications Hydralazine HCl (Apresoline Inj) 20 mg 1X ONCE IVP Last administered on 08/02/21at 03:25; Start 08/02/21 at 04:00; Stop 08/02/21 at 04:01; Status DC Active Scripts Active Ondansetron Odt (Ondansetron) 4 Mg Tab.rapdis 1 Tab PO PRN Q6-8HRS Cephalexin 500 Mg Capsule 1 Cap PO BID Endocet 10-325 Mg Tablet (Oxycodone Hcl/Acetaminophen) 1 Each Tablet 1 Tab PO QIDPRN PRN MDD 4 Tablet(s) 5 Days Mag-Al Plus Xs Suspension (Mag Hydrox/Al Hydrox/Simeth) 30 Ml Oral.susp 30 Ml PO PRN DAILY PRN 30 Days Tylenol (Acetaminophen) 325 Mg Tablet 650 Mg PO PRN Q4HRS PRN 30 Days Proair Hfa (Albuterol Sulfate) 8.5 Gm Hfa.aer.ad 2.5 Mg NEB PRN Q4HRS PRN 30 Days Zofran Odt (Ondansetron) 8 Mg Tab.rapdis 1 Tab PO Q8HRS One every 6-8 hours as needed for nausea Reported Prilosec Otc (Omeprazole Magnesium) 20 Mg Tablet.dr 20 Mg PO DAILY Trazodone Hcl 300 Mg Tablet 300 Mg PO HS Intrinsi [id number] Tablet (Vit B12/Intrins Fact/Fa Cmb #2) 1 Each Tablet 1 Each PO DAILY Metformin Hcl 500 Mg Tablet 500 Mg PO BIDWMEALS Cymbalta (Duloxetine Hcl) 60 Mg Capsule.dr 90 Mg PO DAILY Once Daily (Multivitamin) 1 Each Tablet 1 Tab PO DAILY 30 Days Ibu (Ibuprofen) 800 Mg Tablet 800 Mg PO DAILY ROS: Review of Systems Review of System REVIEW OF SYSTEMS: GENERAL: Denies weakness SKIN: No bruising, hair changes or rashes. EYES: No blurred, double or loss of vision. NOSE AND THROAT: No history of nosebleeds, hoarseness or sore throat. HEART: No history of palpitations, chest pain or shortness of breath on exertion. LUNGS: Denies cough, hemoptysis, wheezing or shortness of breath. GASTROINTESTINAL: Denies changes in appetite, nausea, vomiting, diarrhea or constipation. GENITOURINARY: No history of frequency, urgency, hesitancy or nocturia. NEUROLOGIC: Denies history of numbness, tingling, or tremor. PSYCHIATRIC: No history of panic, anxiety or depression. ENDOCRINE: No history of heat or cold intolerance, polyuria or polydipsia. EXTREMITIES: Denies joint pain, pain on walking or stiffness. Physical Exam: Vital Signs: Vital Signs Date Time Temp Pulse Resp B/P (MAP) Pulse Ox O2 Delivery O2 Flow Rate FiO2 08/02/21 06:23 Room Air 08/02/21 06:14 98.3 96 18 160/100 (120) 99 98.3 Physcial Exam: General: Minimal distress. Disheveled appearance. HEENT: Pupils equally round and reactive to light, EOMI, no discharge, normal c onjunctiva Neck: Supple, no nuchal rigidity, no JVD, trachea midline, no tenderness Cardiac: RRR, no murmurs, no gallops, no rubs Chest/Lungs: CTAB, no wheeze, no rhonchi, no crackles Abdomen: soft, non-distended, no guarding, no peritoneal signs, non-tender Back: No tenderness Extremities: no edema, pulses intact, non-tender,capillary refill <3 sec bilateral upper and lower extremities, multiple superficial skin lesions Neuro: no focal deficits, pressured speech. Labs: Labs: Laboratory Tests Test 08/02/21 01:30 08/02/21 01:48 08/02/21 02:30 White Blood Count 12.3 x10^3/uL (4.0-11.0) Red Blood Count 5.03 x10^6/uL (3.50-5.40) Hemoglobin 13.8 g/dL (12.0-15.5) Hematocrit 40.7 % (36.0-47.0) Mean Corpuscular Volume 81 fL (79-100) Mean Corpuscular Hemoglobin 28 pg (25-35) Mean Corpuscular Hemoglobin Concent 34 g/dL (31-37) Red Cell Distribution Width 14.9 % (11.5-14.5) Platelet Count 376 x10^3/uL (140-400) Neutrophils (%) (Auto) 79 % (31-73) Lymphocytes (%) (Auto) 14 % (24-48) Monocytes (%) (Auto) 6 % (0-9) Eosinophils (%) (Auto) 0 % (0-3) Basophils (%) (Auto) 1 % (0-3) Neutrophils # (Auto) 9.7 x10^3/uL (1.8-7.7) Lymphocytes # (Auto) 1.7 x10^3/uL (1.0-4.8) Monocytes # (Auto) 0.8 x10^3/uL (0.0-1.1) Eosinophils # (Auto) 0.0 x10^3/uL (0.0-0.7) Basophils # (Auto) 0.1 x10^3/uL (0.0-0.2) Sodium Level 139 mmol/L (136-145) Potassium Level 3.8 mmol/L (3.5-5.1) Chloride Level 101 mmol/L (98-107) Carbon Dioxide Level 25 mmol/L (21-32) Anion Gap 13 (6-14) Blood Urea Nitrogen 11 mg/dL (7-20) Creatinine 0.8 mg/dL (0.6-1.0) Estimated GFR (Cockcroft-Gault) 77.6 Glucose Level 243 mg/dL (70-99) Calcium Level 9.2 mg/dL (8.5-10.1) Salicylates Level 1.1 mg/dL (2.8-20.0) Salicylate Last Dose Date Unk Salicylate Last Dose Time Unk Acetaminophen Level < 2 mcg/ml (10-30) Acetaminophen Last Dose Date Unk Acetaminophen Last Dose Time Unk Ethyl Alcohol Level < 10 mg/dL (0-10) Bedside Urine HCG, Qualitative Hcg negative (Negative) Urine Opiates Screen Neg (NEG) Urine Methadone Screen Neg (NEG) Urine Barbiturates Neg (NEG) Urine Phencyclidine Screen Neg (NEG) Urine Amphetamine/Methamphetamine Neg (NEG) Urine Benzodiazepines Screen Pos (NEG) Urine Cocaine Screen Neg (NEG) Urine Cannabinoids Screen Pos (NEG) Urine Ethyl Alcohol Neg (NEG) Laboratory Tests Test 08/02/21 01:30 08/02/21 01:48 08/02/21 02:30 White Blood Count 12.3 x10^3/uL (4.0-11.0) Red Blood Count 5.03 x10^6/uL (3.50-5.40) Hemoglobin 13.8 g/dL (12.0-15.5) Hematocrit 40.7 % (36.0-47.0) Mean Corpuscular Volume 81 fL (79-100) Mean Corpuscular Hemoglobin 28 pg (25-35) Mean Corpuscular Hemoglobin Concent 34 g/dL (31-37) Red Cell Distribution Width 14.9 % (11.5-14.5) Platelet Count 376 x10^3/uL (140-400) Neutrophils (%) (Auto) 79 % (31-73) Lymphocytes (%) (Auto) 14 % (24-48) Monocytes (%) (Auto) 6 % (0-9) Eosinophils (%) (Auto) 0 % (0-3) Basophils (%) (Auto) 1 % (0-3) Neutrophils # (Auto) 9.7 x10^3/uL (1.8-7.7) Lymphocytes # (Auto) 1.7 x10^3/uL (1.0-4.8) Monocytes # (Auto) 0.8 x10^3/uL (0.0-1.1) Eosinophils # (Auto) 0.0 x10^3/uL (0.0-0.7) Basophils # (Auto) 0.1 x10^3/uL (0.0-0.2) Sodium Level 139 mmol/L (136-145) Potassium Level 3.8 mmol/L (3.5-5.1) Chloride Level 101 mmol/L (98-107) Carbon Dioxide Level 25 mmol/L (21-32) Anion Gap 13 (6-14) Blood Urea Nitrogen 11 mg/dL (7-20) Creatinine 0.8 mg/dL (0.6-1.0) Estimated GFR (Cockcroft-Gault) 77.6 Glucose Level 243 mg/dL (70-99) Calcium Level 9.2 mg/dL (8.5-10.1) Salicylates Level 1.1 mg/dL (2.8-20.0) Salicylate Last Dose Date Unk Salicylate Last Dose Time Unk Acetaminophen Level < 2 mcg/ml (10-30) Acetaminophen Last Dose Date Unk Acetaminophen Last Dose Time Unk Ethyl Alcohol Level < 10 mg/dL (0-10) Bedside Urine HCG, Qualitative Hcg negative (Negative) Urine Opiates Screen Neg (NEG) Urine Methadone Screen Neg (NEG) Urine Barbiturates Neg (NEG) Urine Phencyclidine Screen Neg (NEG) Urine Amphetamine/Methamphetamine Neg (NEG) Urine Benzodiazepines Screen Pos (NEG) Urine Cocaine Screen Neg (NEG) Urine Cannabinoids Screen Pos (NEG) Urine Ethyl Alcohol Neg (NEG) Images: Images PROCEDURE: CT HEAD WO CONTRAST PQRS Compliance Statement: One or more of the following individualized dose reduction techniques were utilized for this examination: 1. Automated exposure control 2. Adjustment of the mA and/or kV according to patient size 3. Use of iterative reconstruction technique CT head without contrast 08/02/2021 2:50 AM INDICATION: Confusion COMPARISON: CT head 05/26/2020 TECHNIQUE: Multiple axial CT images of the head were obtained from skull base through the vertex without intravenous contrast. FINDINGS: Head: Ventricles are enlarged, out of proportion to sulcal volume loss. Findings are stable. There is no hydrocephalus. Macdonald-white matter differentiation is normal. There is no acute intracranial hemorrhage. There is no mass, mass effect or midline shift. Posterior fossa is normal in appearance. Suspect remote ischemic changes involving the medial left occipital lobe. Findings are stable from 05/18/2020. Visualized portions of the orbits are normal. Paranasal sinuses are well aerated. Mastoid air cells are well aerated. Scalp and calvaria are normal. IMPRESSION: No acute intracranial hemorrhage. Ventriculomegaly, out of proportion to sulcal volume loss. Findings may be seen with normal pressure hydrocephalus. Findings are not significantly changed since 05/26/2020. Suspect remote ischemic changes involving the medial left occipital lobe. Assessment/Plan Assessment/Plan Concern for acute TIA, possible lacunar infarct Hypertensive urgency Acute metabolic and toxic encephalopathy Hyperglycemia Radiographic findings showing ventriculomegaly concerning for normal pressure hydrocephalus Polysubstance abuse Remote finding of medial lobe infarct History of diabetes mellitus type 1 History of bipolar disorder History of depression anxiety History of hypothyroidism Chronic pain issues Chronic opioid use Admit to hospitalist service for further management Neurology consult for possible MRI of the brain IV antihypertensive regimen to obtain inpatient systolic blood pressure goals of 140-180 Pending TSH R ISS and Accu-Cheks Resume home insulin therapy Telemetry monitoring PAT evaluation for cannabinoid use PT OT and speech modalities Lovenox for DVT prophylaxis ADA diet CODE STATUS full Discussed with RN and SW Disposition inpatient management as above DPOA: Justifications for Admission Other Justification PEREZ BAUTISTA MD Aug 02, 2021 07:47
[2021-08-02] MEDS ORDERED: ENOXAPARIN 40 MG/0.4 ML SYRINGE. SQ SCH (08:00)
[2021-08-02] MEDS: INSULIN LISPRO 300 UNITS/3 ML VIAL. SQ SCH ×3 (08:00→17:50)
[2021-08-02] MEDS ORDERED: LABETALOL 20 MG/4 ML DISP.SYRIN. IVP PRN (08:00)
[2021-08-02] MEDS: metFORMIN 500 MG TABLET PO SCH ×2 (08:00→17:43)
[2021-08-02] MEDS ORDERED: PANTOPRAZOLE 40 MG TABLET.DR. PO SCH (08:15)
[2021-08-02] MEDS ORDERED: VITAMIN B12,B9,B6 COMPLEX 1 TABLET. PO SCH (09:00)
[2021-08-02 09:29] VITALS: BP 153/127
[2021-08-02 09:32] VITALS: BP 180/90
[2021-08-02 11:00] VITALS: BP 188/101
--- NOTE | 2021-08-02 11:26 | NUR ---
SW following. Discussed with RN, pt from home with , room air, ada diet. Pt's BP high this morning. Pt is stuttering and confused. Neuro following. Speech following. SW will continue to follow.
--- NOTE | 2021-08-02 13:31 | PDOC2 ---
NEUROLOGY CONSULT Date of Service DOS: DATE: 08/02/21 TIME: 13:25 Reason for Consult Reason for Consult: Possible stroke, abnormal head CT Referring Physician Referring Physician: Dr. Gar Source Source: Caregiver (), Chart review, Patient History of Present Illness History of Present Illness The patient is a 45-year-old right-handed female who started acting strangely yesterday morning. She has psychiatric disease and was on Seroquel but it made her more confused and she stopped it 2 weeks ago. also noted that the patient used up a 30-day supply of oxycodone in 15 days. She was wandering around the house. He asked her in the evening as a test to see if she could turn off the light switch and she could not find it. She stumbled around. She would not talk or answer his questions or follow his commands. I saw her in 2014 for what I felt was a conversion reaction with a negative work-up then. 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 She has also been at for what they diagnosed was complicated migraines. She has chronic back pain. Past Medical History Cardiovascular: HTN Psych: Depression, Panic Musculoskeletal: low back pain Past Surgical History Past Surgical History: Cholecystectomy, Other (lumbar) Family History Family History: CVA Social History Social History , nonsmoker, nondrinker, unemployed Current Medications Current Medications Current Medications Hydralazine HCl (Apresoline Inj) 20 mg 1X ONCE IVP Last administered on 08/02/21at 03:25; Start 08/02/21 at 04:00; Stop 08/02/21 at 04:01; Status DC Sennosides (Senna) 17.2 mg PRN BID PRN PO CONSTIPATION; Start 08/02/21 at 07:45 Docusate Sodium (Colace) 100 mg PRN DAILY PRN PO HARD STOOLS; Start 08/02/21 at 07:45 Ondansetron HCl (Zofran) 4 mg PRN Q6HRS PRN IVP NAUSEA/VOMITING; Start 08/02/21 at 07:45 Insulin Human Lispro (HumaLOG) 0-7 UNITS TIDWMEALS SQ ; Start 08/02/21 at 08:00 Dextrose (Dextrose 50%-Water Syringe) 12.5 gm PRN Q15MIN PRN IV SEE COMMENTS; Start 08/02/21 at 07:45 Acetaminophen (Tylenol) 650 mg PRN Q4HRS PRN PO TEMP OVER 100.4F OR MILD PAIN; Start 08/02/21 at 07:45 Lorazepam (Ativan) 0.5 mg PRN Q6HRS PRN PO ANXIETY / AGITATION; Start 08/02/21 at 07:45 Lorazepam (Ativan Inj) 0.25 mg PRN Q4HRS PRN IV ANXIETY / AGITATION; Start 08/02/21 at 07:45 Enoxaparin Sodium (Lovenox 40mg Syringe) 40 mg Q24H SQ ; Start 08/02/21 at 08:00 Prochlorperazine Edisylate (Compazine) 10 mg PRN Q6HRS PRN IV NAUSEA/VOMITING- 2ND CHOICE; Start 08/02/21 at 07:45 Zolpidem Tartrate (Ambien) 2.5 mg PRN QHS PRN PO INSOMNIA; Start 08/02/21 at 07:45 Labetalol HCl (Normodyne Iv Push) 20 mg PRN Q2HRS PRN IVP HYPERTENSION Last administered on 08/02/21at 08:20; Start 08/02/21 at 08:00 Metformin HCl (Glucophage) 500 mg BIDWMEALS PO ; Start 08/02/21 at 08:00 Pantoprazole Sodium (Protonix) 40 mg DAILYAC PO ; Start 08/02/21 at 08:15 Vitamin B Complex (Folbic Tablet) 1 tab DAILY PO ; Start 08/02/21 at 09:00 Active Scripts Active Ondansetron Odt (Ondansetron) 4 Mg Tab.rapdis 1 Tab PO PRN Q6-8HRS Keflex (Cephalexin) 500 Mg Capsule 1 Cap PO BID Endocet 10-325 Mg Tablet (Oxycodone Hcl/Acetaminophen) 1 Each Tablet 1 Tab PO QIDPRN PRN MDD 4 Tablet(s) 5 Days Mag-Al Plus Xs Suspension (Mag Hydrox/Al Hydrox/Simeth) 30 Ml Oral.susp 30 Ml PO PRN DAILY PRN 30 Days Tylenol (Acetaminophen) 325 Mg Tablet 650 Mg PO PRN Q4HRS PRN 30 Days Proair Hfa (Albuterol Sulfate) 8.5 Gm Hfa.aer.ad 2.5 Mg NEB PRN Q4HRS PRN 30 Days Zofran Odt (Ondansetron) 8 Mg Tab.rapdis 1 Tab PO Q8HRS One every 6-8 hours as needed for nausea Reported Prilosec Otc (Omeprazole Magnesium) 20 Mg Tablet. 20 Mg PO DAILY Trazodone Hcl 300 Mg Tablet 300 Mg PO HS Intrinsi [id number] Tablet (Vit B12/Intrins Fact/Fa Cmb #2) 1 Each Tablet 1 Each PO DAILY Metformin Hcl 500 Mg Tablet 500 Mg PO BIDWMEALS Cymbalta (Duloxetine Hcl) 60 Mg Capsule.dr 90 Mg PO DAILY Once Daily (Multivitamin) 1 Each Tablet 1 Tab PO DAILY 30 Days Ibu (Ibuprofen) 800 Mg Tablet 800 Mg PO DAILY Allergies Allergies: Coded Allergies: venlafaxine (Verified Allergy, Intermediate, 05/27/20) tizanidine (Verified Allergy, Mild, HALLUCINATIONS, 05/26/20) ROS Review of System Negative for fever, chills, weight loss, shortness of breath, chest pain, indigestion, hematochezia, melena, and dysuria. Full 14-point review of systems is negative. Physical Exam Physical Examination General: Well-developed, well-nourished, white female, in no acute distress HEENT: Normocephalic andatraumatic.Temporal arteriespulsatile and nontender. Neck: Supple without bruit, no meningismus Musculoskeletal: Stability:see neurologic. Gait exam:see neurologic. Tone:see neurologic.Strength:see neurologic. Neurological: Mental Status:intact, orientation, memory, attention span/concentration, language, fund of knowledge normal. thinks he has some slurred speech still, I do not detect any. Cranial Nerves:Pupils equal and reactive to light, extraocular movements areintact, visual rainey are full to confrontation. Faci al sensation is normal. There is no facial asymmetry. Vestibulo-ocular reflex is intact. Palate elevates and tongue protrudes in midline. All other cranial related problems are negative except as mentioned before.Reflexes:2+ and symmetric with flexor plantar responses. Motor:5/5 strength with normal tone and bulk. Coordination:Finger-nose finger and bktd-nv-bnap testing are normal. Rapid alternating movements and fine finger movements are intact. Gait:Normal, including tandem. Sensory:Normal pinprick, vibration, light touch, proprioception. Vitals VITALS Vital Signs Date Time Temp Pulse Resp B/P (MAP) Pulse Ox O2 Delivery O2 Flow Rate FiO2 08/02/21 11:00 98.0 98 18 188/101 (130) 95 Room Air 98.0 Labs Labs Laboratory Tests Test 08/02/21 01:30 08/02/21 01:48 08/02/21 02:30 08/02/21 08:34 White Blood Count 12.3 x10^3/uL (4.0-11.0) Red Blood Count 5.03 x10^6/uL (3.50-5.40) Hemoglobin 13.8 g/dL (12.0-15.5) Hematocrit 40.7 % (36.0-47.0) Mean Corpuscular Volume 81 fL (79-100) Mean Corpuscular Hemoglobin 28 pg (25-35) Mean Corpuscular Hemoglobin Concent 34 g/dL (31-37) Red Cell Distribution Width 14.9 % (11.5-14.5) Platelet Count 376 x10^3/uL (140-400) Neutrophils (%) (Auto) 79 % (31-73) Lymphocytes (%) (Auto) 14 % (24-48) Monocytes (%) (Auto) 6 % (0-9) Eosinophils (%) (Auto) 0 % (0-3) Basophils (%) (Auto) 1 % (0-3) Neutrophils # (Auto) 9.7 x10^3/uL (1.8-7.7) Lymphocytes # (Auto) 1.7 x10^3/uL (1.0-4.8) Monocytes # (Auto) 0.8 x10^3/uL (0.0-1.1) Eosinophils # (Auto) 0.0 x10^3/uL (0.0-0.7) Basophils # (Auto) 0.1 x10^3/uL (0.0-0.2) Sodium Level 139 mmol/L (136-145) Potassium Level 3.8 mmol/L (3.5-5.1) Chloride Level 101 mmol/L (98-107) Carbon Dioxide Level 25 mmol/L (21-32) Anion Gap 13 (6-14) Blood Urea Nitrogen 11 mg/dL (7-20) Creatinine 0.8 mg/dL (0.6-1.0) Estimated GFR (Cockcroft-Gault) 77.6 Glucose Level 243 mg/dL (70-99) Calcium Level 9.2 mg/dL (8.5-10.1) Thyroid Stimulating Hormone (TSH) 0.700 uIU/mL (0.358-3.74) Salicylates Level 1.1 mg/dL (2.8-20.0) Salicylate Last Dose Date Unk Salicylate Last Dose Time Unk Acetaminophen Level < 2 mcg/ml (10-30) Acetaminophen Last Dose Date Unk Acetaminophen Last Dose Time Unk Ethyl Alcohol Level < 10 mg/dL (0-10) Bedside Urine HCG, Qualitative Hcg negative (Negative) Urine Opiates Screen Neg (NEG) Urine Methadone Screen Neg (NEG) Urine Barbiturates Neg (NEG) Urine Phencyclidine Screen Neg (NEG) Urine Amphetamine/Methamphetamine Neg (NEG) Urine Benzodiazepines Screen Pos (NEG) Urine Cocaine Screen Neg (NEG) Urine Cannabinoids Screen Pos (NEG) Urine Ethyl Alcohol Neg (NEG) Glucose (Fingerstick) 284 mg/dL (70-99) Test 08/02/21 12:31 Glucose (Fingerstick) 283 mg/dL (70-99) Laboratory Tests Test 08/02/21 01:30 08/02/21 01:48 08/02/21 02:30 08/02/21 08:34 White Blood Count 12.3 x10^3/uL (4.0-11.0) Red Blood Count 5.03 x10^6/uL (3.50-5.40) Hemoglobin 13.8 g/dL (12.0-15.5) Hematocrit 40.7 % (36.0-47.0) Mean Corpuscular Volume 81 fL (79-100) Mean Corpuscular Hemoglobin 28 pg (25-35) Mean Corpuscular Hemoglobin Concent 34 g/dL (31-37) Red Cell Distribution Width 14.9 % (11.5-14.5) Platelet Count 376 x10^3/uL (140-400) Neutrophils (%) (Auto) 79 % (31-73) Lymphocytes (%) (Auto) 14 % (24-48) Monocytes (%) (Auto) 6 % (0-9) Eosinophils (%) (Auto) 0 % (0-3) Basophils (%) (Auto) 1 % (0-3) Neutrophils # (Auto) 9.7 x10^3/uL (1.8-7.7) Lymphocytes # (Auto) 1.7 x10^3/uL (1.0-4.8) Monocytes # (Auto) 0.8 x10^3/uL (0.0-1.1) Eosinophils # (Auto) 0.0 x10^3/uL (0.0-0.7) Basophils # (Auto) 0.1 x10^3/uL (0.0-0.2) Sodium Level 139 mmol/L (136-145) Potassium Level 3.8 mmol/L (3.5-5.1) Chloride Level 101 mmol/L (98-107) Carbon Dioxide Level 25 mmol/L (21-32) Anion Gap 13 (6-14) Blood Urea Nitrogen 11 mg/dL (7-20) Creatinine 0.8 mg/dL (0.6-1.0) Estimated GFR (Cockcroft-Gault) 77.6 Glucose Level 243 mg/dL (70-99) Calcium Level 9.2 mg/dL (8.5-10.1) Thyroid Stimulating Hormone (TSH) 0.700 uIU/mL (0.358-3.74) Salicylates Level 1.1 mg/dL (2.8-20.0) Salicylate Last Dose Date Unk Salicylate Last Dose Time Unk Acetaminophen Level < 2 mcg/ml (10-30) Acetaminophen Last Dose Date Unk Acetaminophen Last Dose Time Unk Ethyl Alcohol Level < 10 mg/dL (0-10) Bedside Urine HCG, Qualitative Hcg negative (Negative) Urine Opiates Screen Neg (NEG) Urine Methadone Screen Neg (NEG) Urine Barbiturates Neg (NEG) Urine Phencyclidine Screen Neg (NEG) Urine Amphetamine/Methamphetamine Neg (NEG) Urine Benzodiazepines Screen Pos (NEG) Urine Cocaine Screen Neg (NEG) Urine Cannabinoids Screen Pos (NEG) Urine Ethyl Alcohol Neg (NEG) Glucose (Fingerstick) 284 mg/dL (70-99) Test 08/02/21 12:31 Glucose (Fingerstick) 283 mg/dL (70-99) Images Images CT head without contrast 08/02/2021 2:50 AM INDICATION: Confusion COMPARISON: CT head 05/26/2020 TECHNIQUE: Multiple axial CT images of the head were obtained from skull base through the vertex without intravenous contrast. FINDINGS: Head: Ventricles are enlarged, out of proportion to sulcal volume loss. Findings are stable. There is no hydrocephalus. Macdonald-white matter differentiation is normal. There is no acute intracranial hemorrhage. There is no mass, mass effect or midline shift. Posterior fossa is normal in appearance. Suspect remote ischemic changes involving the medial left occipital lobe. Findings are stable from 05/18/2020. Visualized portions of the orbits are normal. Paranasal sinuses are well aerated. Mastoid air cells are well aerated. Scalp and calvaria are normal. IMPRESSION: No acute intracranial hemorrhage. Ventriculomegaly, out of proportion to sulcal volume loss. Findings may be seen with normal pressure hydrocephalus. Findings are not significantly changed since 05/26/2020. Suspect remote ischemic changes involving the medial left occipital lobe. Assessment/Plan Assessment/Plan Impression: Confusion spell yesterday, I doubt organic neurological disease such as a stroke or transient ischemic attack, prior history of psychiatric disease and conversion disorder, although with the possibility of complicated migraine. 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 Recommendations: insist the patient should have a stroke work-up. That is reasonable, I have ordered MRI of the brain, carotid Doppler studies, echocardiogram Hold off on further stroke-pathway orders including aspirin and statin Discharge later today if testing is negative. Follow-up with her primary care physician and psychiatrist. Thank you for letting me help with the patient's care. GAMALIEL DANIELS MD Aug 02, 2021 13:31
[2021-08-02 15:00] VITALS: BP 178/99
--- NOTE | 2021-08-02 15:28 | RAD ---
MRI BRAIN WO Date: 08/02/2021 1:45 PM Indication: TIA, confusion, abnormal CT head Comparison: CT 08/02/2021. MRI 05/27/2020. Technique: Multiplanar multisequence MRI of the brain was performed without intravenous contrast usin g the standard protocol. Findings: No acute infarct. No acute or chronic hemorrhage. Unchanged ventriculomegaly. The scalp and calvarium are normal. The pituitary and sella are normal. No Chiari malformation. The v isualized upper cervical spine is normal. The visualized orbits and globes are normal. The visualized paranasal sinuses are clear. Trace mastoi d fluid. Normal flow voids within the vertebral, basilar, and internal carotid arteries indicating patency. IMPRESSION: 1. No acute infarct, acute hemorrhage, or mass. 2. Unchanged ventriculomegaly Electronically signed by: Blake Meyers MD (08/02/2021 3:25 PM) [facility]ENTERJOSE RAMON
--- NOTE | 2021-08-02 17:12 | CARD ---
MR#: [id number] Date of Study: 08/02/2021 Ordering Physician: GAMALIEL DANIELS, Referring Physician: GAMALIEL DANIELS Tech: [facility] APPROVED REPORT EXAM: Two-dimensional and M-mode echocardiogram with Doppler and color Doppler. Other Information Quality : FairHR: 91bpm Rhythm : NSR INDICATION CVA/TIA Echo Enhancing Agent Agent/Amount Used: Agitated Saline 8mL RISK FACTORS Obesity Diabetes Polysubstance abuse 2D DIMENSIONS Left Atrium(2D)4.3 (1.6-4.0cm)IVSd0.9 (0.7-1.1cm) Aortic Root(2D)3.1 (2.0-3.7cm)LVDd3.8 (3.9-5.9cm) LVOT Diameter1.9 (1.8-2.4cm)PWd1.0 (0.7-1.1cm) LVDs1.8 (2.5-4.0cm)FS (%) 51.7 % SV50.9 mlLVEF(%)83.6 (>50%) Aortic Valve AoV Peak Kenny.167.2cm/sAoV VTI28.3cm AO Peak GR.11.2mmHgLVOT Peak Kenny.113.5cm/s AO Mean GR.5mmHgAVA (VMAX)1.87cm2 Mitral Valve MV E Hzqwnotl67.4cm/sMV E Peak Gr.8mmHg MV DECEL [id number] A Uicfqhzj467.8cm/s MV E Mean Gr.4mmHgE/A Ratio0.8 Pulmonary Valve PV Peak Vvpzuucg267.7cm/s Tricuspid Valve TR P. Jevkbcbw273gg/sTR Peak Gr.30mmHg Pulmonary Vein S1 Xipmwyna59.7cm/sD2 Ksqrpidr25.8cm/s LEFT VENTRICLE The left ventricle is normal size. There is normal left ventricular wall thickness. The left ventricu lar systolic function is normal. The ejection fraction is estimated at 60%. There is normal LV segmen savi wall motion. Transmitral Doppler flow pattern is Grade I-abnormal relaxation pattern. No left jorge a tricle thrombus noted on this study. There is no ventricular septal defect visualized. There is no le ft ventricular aneurysm. There is no mass noted in the left ventricle. RIGHT VENTRICLE The right ventricle is normal size. There is normal right ventricular wall thickness. The right ventr icular systolic function is normal. ATRIA The left atrium is mildly dilated. The right atrium size is normal. The interatrial septum is intact with no evidence for an atrial septal defect or patent foramen ovale as noted on 2-D or Doppler imagi ng. AORTIC VALVE The aortic valve is mildly sclerotic. Doppler and Color Flow revealed no significant aortic regurgita tion. There is no significant aortic valvular stenosis. There is no aortic valvular vegetation. MITRAL VALVE The mitral valve is normal in structure and function. There is no evidence of mitral valve prolapse. There is no mitral valve stenosis. Doppler and Color-flow revealed trace mitral regurgitation. TRICUSPID VALVE The tricuspid valve is normal in structure and function. Doppler and Color Flow revealed trace tricus pid regurgitation. The PA pressure was estimated at 40 mmHg. There is no tricuspid valve prolapse or vegetation. There is no tricuspid valve stenosis. PULMONIC VALVE The pulmonary valve is normal in structure and function. Doppler and Color Flow revealed no pulmonic valvular regurgitation. There is no pulmonic valvular stenosis. GREAT VESSELS The aortic root is normal in size. The ascending aorta is normal in size. The pulmonary artery is nor mal. The IVC is normal in size and collapses >50% with inspiration. PERICARDIAL EFFUSION There is no pleural effusion. There is no evidence of significant pericardial effusion. Critical Notification Critical Value: No <Conclusion> The left ventricular systolic function is normal. The ejection fraction is estimated at 60%. There is normal LV segmental wall motion. Transmitral Doppler flow pattern is Grade I-abnormal relaxation pattern. Trace mitral regurgitation. Trace tricuspid regurgitation. The PA pressure was estimated at 40 mmHg. There is no evidence of significant pericardial effusion. Signed by : Prateek Echevarria, Electronically Approved : 08/02/2021 17:11:33
--- NOTE | 2021-08-02 17:54 | RAD ---
EXAM: Bilateral carotid duplex with waveform analysis. CLINICAL HISTORY: Reason: TIA speech difficulty. Dizziness/lightheadedness. Weakness/numbness. Memory loss. Visual impairment. Hypertension. TECHNIQUE: Longitudinal and transverse sonographic images of the bilateral carotid arteries was perfo rmed utilizing grayscale, color and spectral Doppler techniques. COMPARISON: None available. FINDINGS: Right Carotid: No visible stenosis or significant plaque. Left Carotid: There is a significant stenosis of 50 percent involving the left ECA. No significant st enosis of the left ICA is seen. Vertebrals: Antegrade flow bilaterally. Right: PSV CCA (cm/s): 70 PSV ICA (cm/s): 78 EDV ICA (cm/s): 25 PSV ECA (cm/s): 160 ICA/CCA Ratio: 1.1 Left: PSV CCA (cm/s): 74 PSV ICA (cm/s): 73 EDV ICA (cm/s): 26 PSV ECA (cm/s): 242 ICA/CCA Ratio: Approximately 1.0 IMPRESSION: No significant stenosis of either ICA is seen. Consensus Panel Macdonald-scale and Doppler US Criteria for Diagnosis of ICA Stenosis Degree of Stenosis (%) ICA PSV (Cm/sec) Plaque Estimate (%)* Normal <125 None <50 <125 <50 50-69 125-230 >50 >70 but < near occlusion >230 >50 Near occlusion High, low, or undetectable Visible Total occlusion Undetectable Visible, no detectable lumen *Plaque estimate (diameter reduction) with macdonald-scale and color Doppler US Degree of Stenosis (%) ICA/CCA PSV Ratio ICA EDV (cm/sec) Normal <2.0 <40 <50 <2.0 <40 50-69 2.0-4.0 40-100 >70 but < near occlusion >4.0 >100 Near occlusion Variable Variable Total occlusion Not applicable Not applicable Electronically signed by: Bharathi Hennessy MD (08/02/2021 5:52 PM) [id number]
[2021-08-02] MEDS ORDERED: ALBUTEROL SULFATE 2.5 MG/3 ML NEBU. NEB PRN (19:45)
[2021-08-02] MEDS ORDERED: MAG HYDROX/ALUMINUM HYD/SIMETH 30 ML ORAL.SUSP PO PRN (19:45)
[2021-08-02] MEDS ORDERED: DULoxetine HCL 30 MG CAPSULE.DR PO SCH (20:00)
[2021-08-02] MEDS ORDERED: ONDANSETRON ODT 4 MG TAB.RAPDIS. PO PRN (20:00)
[2021-08-02] MEDS ORDERED: IBUPROFEN 400 MG TABLET. PO PRN (20:00)
--- NOTE | 2021-08-02 20:15 | NUR ---
Patient discharged home with per ok with Dr Castaneda and Dr Montelongo. Patient alert and oriented to all questions. Gait steady.
[2021-08-02] MEDS ORDERED: traZODone 100 MG TABLET. PO SCH (21:00)
[2021-08-03] MEDS ORDERED: MULTIVITAMIN with MINERAL TABLET. PO SCH (09:00)
--- NOTE | 2021-08-09 08:44 | PDOC3 ---
[facility]-Discharge Summary Date of Admission: Date of Admission: Aug 02, 2021 Date of Discharge: Date of Discharge: Aug 02, 2021 Discharge Diagnosis: Discharge Diagnosis: Concern for acute TIA, possible lacunar infarct Hypertensive urgency Acute metabolic and toxic encephalopathy Hyperglycemia Radiographic findings showing ventriculomegaly concerning for normal pressure hydrocephalus Polysubstance abuse Remote finding of medial lobe infarct History of diabetes mellitus type 1 History of bipolar disorder History of depression anxiety History of hypothyroidism Chronic pain issues Chronic opioid use Hospital Course: Hospital Course: 45-year-old female with past medical history significant for depression anxiety, bipolar disorder, chronic back pain, diabetes mellitus who comes in to the ED with her for confusion and discoordination with which her extremities and some changes in her speech. Symptoms started last night around 730 plan asked the patient to turn off the light. did also noticed that her oxycodone had been supplied for 30 days but is gone and now was only 15 days ago. She was on Seroquel on 1022 but stopped it 2 days later. Upon my interview, this morning patient feels much better and is alert awake and orie nted x4. She does not complain of any focal deficits. However, feels that her speech is somewhat altered. By day of discharge, pt was clinically stable and ready for discharge. Rest of hospital course was uneventful Disposition: Disposition/Orders: D/C to Home Activity: Activity: Resume previous activity Diet: Diet: Cardiac Medications: Home Meds Active Scripts Ondansetron (ONDANSETRON ODT) 4 Mg Tab.rapdis, 1 TAB PO PRN Q6-8HRS, #16 TAB Prov:MAYA MUÑOZ MD 03/11/21 Mag Hydrox/Al Hydrox/Simeth (MAG-AL PLUS XS SUSPENSION) 30 Ml Oral.susp, 30 ML PO PRN DAILY PRN for HEARTBURN / GAS for 30 Days, #360 MISC Prov:DEVAUGHN GALARZA MD 05/27/20 Acetaminophen (TYLENOL) 325 Mg Tablet, 650 MG PO PRN Q4HRS PRN for TEMP OVER 100.4F OR MILD PAIN for 30 Days, #60 TAB Prov:DEVAUGHN GALARZA MD 05/27/20 Albuterol Sulfate (Proair Hfa) 8.5 Gm Hfa.aer.ad, 2.5 MG NEB PRN Q4HRS PRN for WHEEZING for 30 Days, #1 INHALER Prov:DEVAUGHN GALARZA MD 05/27/20 Ondansetron (ZOFRAN ODT) 8 Mg Tab.rapdis, 1 TAB PO Q8HRS, #12 TAB One every 6-8 hours as needed for nausea Prov:MARLENI MORGAN MD 08/04/16 Reported Medications Omeprazole Magnesium (PRILOSEC OTC) 20 Mg Tablet.dr, 20 MG PO DAILY for GERD, TAB 05/26/20 Trazodone Hcl (TRAZODONE HCL) 300 Mg Tablet, 300 MG PO HS for Insomnia, TAB 05/26/20 Vit B12/Intrins Fact/Fa Cmb #2 (INTRINSI K65-ELGHDS TABLET) 1 Each Tablet, 1 EACH PO DAILY for supplement, TAB 05/26/20 Metformin Hcl (METFORMIN HCL) 500 Mg Tablet, 500 MG PO BIDWMEALS for ANTI- DIABETIC, TAB 0 Refills 05/26/20 Duloxetine Hcl (CYMBALTA) 60 Mg Capsule.dr, 90 MG PO DAILY for depression, CAP 05/26/20 Multivitamin (ONCE DAILY) 1 Each Tablet, 1 TAB PO DAILY for Supplement for 30 Days, #30 TAB 0 Refills 05/26/20 Ibuprofen (Ibu) 800 Mg Tablet, 800 MG PO DAILY for Joint pain, TAB 05/26/20 Scheduled Duloxetine Hcl (Cymbalta), 90 MG PO DAILY, (Reported) Ibuprofen (Ibu), 800 MG PO DAILY, (Reported) Metformin Hcl (Metformin Hcl), 500 MG PO BIDWMEALS, (Reported) Multivitamin (Once Daily), 1 TAB PO DAILY, (Reported) Omeprazole Magnesium (Prilosec Otc), 20 MG PO DAILY, (Reported) Ondansetron (Zofran Odt), 1 TAB PO Q8HRS Ondansetron (Ondansetron Odt), 1 TAB PO PRN Q6-8HRS Trazodone Hcl (Trazodone Hcl), 300 MG PO HS, (Reported) Vit B12/Intrins Fact/Fa Cmb #2 (Intrinsi Q17-Rtqyfg Tablet), 1 EACH PO DAILY, (Reported) Scheduled PRN Acetaminophen (Tylenol), 650 MG PO PRN Q4HRS PRN for TEMP OVER 100.4F OR MILD PAIN Albuterol Sulfate (Proair Hfa), 2.5 MG NEB PRN Q4HRS PRN for WHEEZING Mag Hydrox/Al Hydrox/Simeth (Mag-Al Plus Xs Suspension), 30 ML PO PRN DAILY PRN for HEARTBURN / GAS Total Time: Total Time: Total time spent was 32 minutes in preparing scripts, discharge planning with SW and RN, and preparing this discharge summary. Justicifation of Admission Dx: Justifications for Admission: Justification of Admission Dx: N/A PEREZ BAUTISTA MD Aug 09, 2021 08:44
== END 2021-08-02 20:15 | disposition home or self-care (01) | DRG 304 ==
LOC: ER 00:34 → ED HOLD 04:51 → 5 SOUTH 06:08
PROVIDERS: ADMIT Internal Medicine; ATTEND Internal Medicine
DX: I16.0 Hypertensive urgency (principal); G92.9 Unspecified toxic encephalopathy; G91.9 Hydrocephalus, unspecified; E03.9 Hypothyroidism, unspecified; E10.65 Type 1 diabetes mellitus with hyperglycemia; F31.9 Bipolar disorder, unspecified; F41.0 Panic disorder [episodic paroxysmal anxiety]; G43.109 Migraine with aura, not intractable, without status migrainosus; G89.29 Other chronic pain; G93.89 Other specified disorders of brain; I10 Essential (primary) hypertension; Z79.4 Long term (current) use of insulin; Z79.891 Long term (current) use of opiate analgesic; Z82.3 Family history of stroke; Z86.73 Personal history of transient ischemic attack (TIA), and cerebral infarction without residual deficits; E66.9 Obesity, unspecified; Z90.49 Acquired absence of other specified parts of digestive tract
CPT/HCPCS: 36415; 70450; 70551; 80048; 80307; 80329; 81025; 82962; 84443; 85025; 93306; 93880; 96374; G0480; J0360; J1650; J1815; J3490; 92610-GN; 99285-25; G0378

== ENCOUNTER 2021-11-10 08:27 | Emergency (ER) | payer BC ==
[~2021-11-10] VITALS: Ht 170.2 cm; Wt 104.5 kg
[2021-11-10] MEDS ORDERED: ASPIRIN CHEWABLE 81 MG TABLET. PO ONE (08:45)
[2021-11-10] MEDS ORDERED: ONDANSETRON PF 4 MG/2 ML VIAL. IVP ONE (08:45)
[2021-11-10] MEDS ORDERED: KETOROLAC 15 MG/ML VIAL. IVP ONE (08:45)
[2021-11-10 08:52] LABS: BASO # 0.1 x10^3/uL (0.0-0.2); BASO % 0 % (0-3); EOS # 0.3 x10^3/uL (0.0-0.7); EOS % 2 % (0-3); HEMATOCRIT 39.8 % (36.0-47.0); HEMOGLOBIN 13.3 g/dL (12.0-15.5); LYMPH # 4.2 x10^3/uL (1.0-4.8); LYMPH % 30 % (24-48); MEAN CORPUSCULAR HEMOGLOBIN 27 pg (25-35); MEAN CORPUSCULAR HGB CONC 34 g/dL (31-37); MEAN CORPUSCULAR VOLUME 81 fL (79-100); MONO # 1.2 x10^3/uL (0.0-1.1); MONO % 8 % (0-9); NEUT # 8.2 x10^3/uL (1.8-7.7); NEUT % 59 % (31-73); PLATELET COUNT 403 x10^3/uL (140-400); RED BLOOD COUNT 4.93 x10^6/uL (3.50-5.40); WHITE BLOOD COUNT 13.9 x10^3/uL (4.0-11.0)
--- NOTE | 2021-11-10 09:04 | RAD ---
XR CHEST 1V CLINICAL INDICATIONS: Chest pain COMPARISON: July 05, 2020. Findings: No acute lung infiltrate or pleural effusion or pulmonary edema or lung mass or pneumothora x is seen. The heart size, pulmonary vasculature, mediastinum and both birdie are unremarkable. IMPRESSION: No acute radiographic abnormality is seen. Electronically signed by: Bharathi Hennessy MD (11/10/2021 9:01 AM) [id number]
[2021-11-10 09:10] LABS: CALCIUM 8.5 mg/dL (8.5-10.1); POTASSIUM 4.3 mmol/L (3.5-5.1)
[2021-11-10 09:12] LABS: ALBUMIN 3.4 g/dL (3.4-5.0); ALBUMIN/GLOBULIN RATIO 0.8 (1.0-1.7); TOTAL BILIRUBIN 0.1 mg/dL (0.2-1.0); TOTAL PROTEIN 7.7 g/dL (6.4-8.2)
--- NOTE | 2021-11-10 09:21 | PHYS DOC ---
Past Medical History Past Medical History: Anxiety, Depression, Diabetes-Type I, Hypothyroid, UTI, Other Additional Past Medical Histor: back pain, DDD, obesity,PANIC ATTACKS Past Surgical History: Cholecystectomy, Other Additional Past Surgical Histo: LEEP procedure for HPV Smoking Status: Current Every Day Smoker Alcohol Use: None Drug Use: None Adult General Chief Complaint Chief Complaint: SHORTNESS OF BREATH HPI HPI Patient is a 45 year old female presenting to the emergency department in a panic state. I could not get any information of the patient as she kept screaming check my ribs. I tried to ascertain if she fell or if this started on its own and how long it was going on and she was hyperventilating and would not answer my questions other than scream check my ribs. Patient did eventually tell the nurse after I left the room that she fell and landed on her right lateral lower ribs and she is having pain there and that she does have a history of anxiety. Patient is tachycardic but has a normal oxygen saturation. She is nontoxic-appearing and I reviewed her prior emergency department visit from July as copied below. 45-year-old female past medical history of anxiety/depression, bipolar disorder, chronic back pain and diabetes, presents the ED with her , (patient consents to his/her/their knowledge and involvement in pts' medical care), concern for confusion and abnormal behavior since early this morning-states confusion worsened around 7:30 PM tonight when he asked her to turn off a light. noticed that it's been 15 days and her oxycodone prescription bottle is empty (had a 30 day supply). Was started on Seroquel 07/20 but stopped it due to how it made her feel. Medications that can recall include Seroquel, Xanax, oxycodone and Cymbalta. Pt alert to name/age/place but not month/year. Hx and ROS limited due to pts' mental status. reports h/o delta 8 use. Review of Systems Review of Systems Unable to obtain review of systems due to patient not answering the questions. All other systems were reviewed and found to be within normal limits, except as documented in this note. Current Medications Current Medications Current Medications Medications (Trade) Dose Ordered Sig/Brandi Start Time Stop Time Status Last Admin Dose Admin Aspirin (Aspirin Chewable) 324 mg 1X ONCE 11/10/21 08:45 11/10/21 08:49 DC 11/10/21 09:00 324 MG Ceftriaxone Sodium (Rocephin) 1 gm 1X ONCE 11/10/21 12:00 11/10/21 12:05 DC Ketorolac Tromethamine (Toradol 15mg Vial) 15 mg 1X ONCE 11/10/21 08:45 11/10/21 08:49 DC 11/10/21 09:10 15 MG Lorazepam (Ativan Inj) 2 mg 1X ONCE 11/10/21 08:45 11/10/21 08:49 DC 11/10/21 09:02 2 MG Ondansetron HCl (Zofran) 4 mg 1X ONCE 11/10/21 08:45 11/10/21 08:49 DC 11/10/21 09:06 4 MG Allergies Allergies Allergies Coded Allergies Type Severity Reaction Last Updated Verified venlafaxine Allergy Intermediate 05/27/20 Yes tizanidine Allergy Mild HALLUCINATIONS 05/26/20 Yes Physical Exam Physical Exam Constitutional: Panicked female in no acute distress HENT: Normocephalic, atraumatic, bilateral external ears normal, oropharynx moist, no oral exudates, nose normal. [] Eyes: PERRLA, EOMI, conjunctiva normal, no discharge. [] Neck: Normal range of motion, no tenderness, supple, no stridor. [] Cardiovascular:Heart rate sinus tachycardic rhythm, no murmur [] Lungs & Thorax: Bilateral breath sounds clear to auscultation. Right lateral ribs tender to palpation Abdomen: Bowel sounds normal, soft, no tenderness, no masses, no pulsatile masses. [] Skin: Warm, dry, no erythema, no rash. [] Back: No tenderness, no CVA tenderness. [] Extremities: No tenderness, no cyanosis, no clubbing, ROM intact, no edema. [] Neurologic: Alert and was moving all extremities spontaneously but would not answer orientation questions or follow commands. Psychologic: Affect normal, judgement normal, mood normal. [] Current Patient Data Vital Signs Vital Signs Date Time Temp Pulse Resp B/P (MAP) Pulse Ox O2 Delivery O2 Flow Rate FiO2 11/10/21 11:56 117 15 148/76 (100) 97 Room Air 11/10/21 08:27 98.5 98.5 Lab Values Laboratory Tests Test 11/10/21 08:41 2/12/22 09:15 11/10/21 10:28 White Blood Count 13.9 x10^3/uL (4.0-11.0) H Red Blood Count 4.93 x10^6/uL (3.50-5.40) Hemoglobin 13.3 g/dL (12.0-15.5) Hematocrit 39.8 % (36.0-47.0) Mean Corpuscular Volume 81 fL (79-100) Mean Corpuscular Hemoglobin 27 pg (25-35) Mean Corpuscular Hemoglobin Concent 34 g/dL (31-37) Red Cell Distribution Width 15.0 % (11.5-14.5) H Platelet Count 403 x10^3/uL (140-400) H Neutrophils (%) (Auto) 59 % (31-73) Lymphocytes (%) (Auto) 30 % (24-48) Monocytes (%) (Auto) 8 % (0-9) Eosinophils (%) (Auto) 2 % (0-3) Basophils (%) (Auto) 0 % (0-3) Neutrophils # (Auto) 8.2 x10^3/uL (1.8-7.7) H Lymphocytes # (Auto) 4.2 x10^3/uL (1.0-4.8) Monocytes # (Auto) 1.2 x10^3/uL (0.0-1.1) H Eosinophils # (Auto) 0.3 x10^3/uL (0.0-0.7) Basophils # (Auto) 0.1 x10^3/uL (0.0-0.2) D-Dimer (Valentine) < 0.27 ug/mlFEU Sodium Level 137 mmol/L (136-145) Potassium Level 4.3 mmol/L (3.5-5.1) Chloride Level 102 mmol/L (98-107) Carbon Dioxide Level 23 mmol/L (21-32) Anion Gap 12 (6-14) Blood Urea Nitrogen 20 mg/dL (7-20) Creatinine 1.0 mg/dL (0.6-1.0) Estimated GFR (Cockcroft-Gault) 60.0 BUN/Creatinine Ratio 20 (6-20) Glucose Level 258 mg/dL (70-99) H Calcium Level 8.5 mg/dL (8.5-10.1) Total Bilirubin 0.1 mg/dL (0.2-1.0) L Aspartate Amino Transferase (AST) 11 U/L (15-37) L Alanine Aminotransferase (ALT) 17 U/L (14-59) Alkaline Phosphatase 113 U/L (46-116) Troponin I High Sensitivity < 4 ng/L (4-50) L XY-Qzv-[id number]-Type Natriuretic Peptide 45 pg/mL (0-124) Total Protein 7.7 g/dL (6.4-8.2) Albumin 3.4 g/dL (3.4-5.0) Albumin/Globulin Ratio 0.8 (1.0-1.7) L Lipase 125 U/L (73-393) Ethyl Alcohol Level < 10 mg/dL (0-10) Influenza Type A Antigen Negative (NEGATIVE) Influenza Type B Antigen Negative (NEGATIVE) SARS-CoV-2 Antigen (Rapid) Negative (NEGATIVE) Urine Collection Type Unknown Urine Color Yellow Urine Clarity Hazy Urine pH 6.0 (<5.0-8.0) Urine Specific [place] 1.020 (1.000-1.030) Urine Protein Negative mg/dL (NEG-TRACE) Urine Glucose (UA) 250 mg/dL (NEG) Urine Ketones (Stick) Negative mg/dL (NEG) Urine Blood Negative (NEG) Urine Nitrite Positive (NEG) Urine Bilirubin Negative (NEG) Urine Urobilinogen Dipstick 0.2 mg/dL (0.2 mg/dL) Urine Leukocyte Esterase Small (NEG) Urine RBC Occ /HPF (0-2) Urine WBC 11-20 /HPF (0-4) Urine Squamous Epithelial Cells Mod /LPF Urine Bacteria Many /HPF (0-FEW) Urine Mucus Slight /LPF Urine Opiates Screen Neg (NEG) Urine Methadone Screen Neg (NEG) Urine Barbiturates Neg (NEG) Urine Phencyclidine Screen Neg (NEG) Urine Amphetamine/Methamphetamine Neg (NEG) Urine Benzodiazepines Screen Neg (NEG) Urine Cocaine Screen Neg (NEG) Urine Cannabinoids Screen Pos (NEG) Urine Ethyl Alcohol Neg (NEG) Laboratory Tests 11/10/21 08:41 Laboratory Tests 11/10/21 08:41 EKG EKG Sinus tachycardia at 131 bpm with normal axis no deviation and no ST elevation or depression and normal T waves [] Radiology/Procedures Radiology/Procedures [] Course & Med Decision Making Course & Med Decision Making Patient presenting with nonspecific complaint of right rib pain so I will check labs imaging treat her symptoms and reassess. Patient's work-up reveals no rib fracture and her D-dimer is negative. Patient does have tenderness to palpation of the right lateral rib cage but no abdominal tenderness. On reexamination patient said that she has had some dysuria and gets frequent urinary tract infections and I did send a urine that was positive nitrites with bacteria and she was given a dose of Rocephin. Patient's heart rate continues to be 110-120 range and she says this is normal for her to be tachycardic. Patient says that she feels much better and would like to go home. Given there is no inpatient criteria met and she appears well with normal vital signs other than her tachycardia she will be discharged in stable condition told to drink plenty of fluids take ibuprofen for pain and I will prescribe her Keflex have her follow with her primary care provider within 2 to 3 days for recheck and told to come back to emergency department sooner with worsening pain fevers vomiting or other general concerns. Patient aware and agreeable with plan and verbalized understanding of the above instructions. Dragon Disclaimer Dragon Disclaimer This electronic medical record was generated, in whole or in part, using a voice recognition dictation system. Departure Departure Impression: Primary Impression: Tachycardia Additional Impressions: UTI (urinary tract infection) Costochondral chest pain Hyperglycemia Leukocytosis Disposition: HOME / SELF CARE / HOMELESS Condition: GOOD Referrals: ALEXIS GREENE MD (PCP) Patient Instructions: Urinary Tract Infection Scripts Cephalexin (KEFLEX) 500 Mg Capsule 1 CAP PO QID for 7 Days, #28 CAP Prov: CAMERON MORSE DO 11/10/21 Problem Qualifiers CAMERON MORSE DO Nov 10, 2021 09:21
[2021-11-10 09:45] LABS: INFLUENZA A PATIENT NEGATIVE (NEGATIVE); INFLUENZA B PATIENT NEGATIVE (NEGATIVE)
[2021-11-10 10:43] LABS: AMPHETAMINE/METHAMPHETAMINE NEG (NEG); BARBITURATES NEG (NEG); BENZODIAZEPINES NEG (NEG); CANNABINOIDS POS (NEG); COCAINE NEG (NEG); METHADONE NEG (NEG); OPIATES NEG (NEG); PHENCYCLIDINE NEG (NEG)
[2021-11-10 11:55] LABS: BILIRUBIN,URINE NEGATIVE (NEG); COLOR,URINE YELLOW; NITRITE,URINE POSITIVE (NEG); PROTEIN,URINE NEGATIVE (NEG-TRACE); UROBILINOGEN,URINE 0.2 mg/dL (0.2 mg/dL)
[2021-11-10 11:56] VITALS: BP 148/76
[2021-11-10 11:56] LABS: BACTERIA,URINE MANY /HPF (0-FEW); CLARITY,URINE HAZY; RBC,URINE OCC /HPF (0-2)
[2021-11-10] MEDS ORDERED: cefTRIAXone IV Push 1 GM VIAL. IVP ONE (12:00)
[2021-11-10] MEDS ORDERED: CEPH500C PO ×2 (12:12→12:17)
[2021-11-10] MEDS ORDERED: HYDROcodone/APAP 5/325MG 1 TAB TABLET PO ONE (12:15)
--- NOTE | 2021-11-10 18:25 | EKG ---
[facility] [address] [place] [address] Test Date: 2021-11-10 Test Time: 08:42:34 Pat Name: JESSI CRESPO Department: Room: Gender: F Caser Up: : 1975 Requested By: CAMERON MORSE Order Number: [id number] Reading MD: Adan Walden MD Measurements Intervals [place] Rate: 131 P: 0 FL: 126 QRS: 14 QRSD: 74 T: 44 QT: 296 QTc: 442 Interpretive Statements SINUS TACHYCARDIA NON-SPECIFIC ST/T CHANGES Electronically Signed On 11-12-2021 8:25:31 SLABBER by Adan Walden MD
== END 2021-11-10 12:34 | disposition home or self-care (01) ==
LOC: ER 08:27
DX: R00.0 Tachycardia, unspecified (principal); N39.0 Urinary tract infection, site not specified; R07.89 Other chest pain; E10.65 Type 1 diabetes mellitus with hyperglycemia; D72.829 Elevated white blood cell count, unspecified; F31.9 Bipolar disorder, unspecified; F17.200 Nicotine dependence, unspecified, uncomplicated; Z88.8 Allergy status to other drugs, medicaments and biological substances
CPT/HCPCS: 36415; 71045; 80053; 80307; 81001; 83690; 83880; 84484; 85025; 85379; 87077; 87086; 87186; 87428; 93005; 96374; 96375; 99285; G0480; J0696; J1885; J2060; J2405